=== PATIENT | male | born 1935 | race Caucasian/White ===

== ENCOUNTER → 2017-05-18 | Outpatient (CLI) | payer MEDICARE, BC ==
--- NOTE | 2017-05-18 19:44 | CONS ---
CONSULTATION DATE OF SERVICE: 05/18/2017 81-year-old gentleman has been evaluated in [facility] for obstructive sleep apnea- hypopnea syndrome. HISTORY OF PRESENT ILLNESS/SLEEP WAKE EVALUATION: Patient had been diagnosed with obstructive sleep apnea more than 20 years ago in [facility] and then he underwent UPPP surgery. After surgery, he feels better, breathing improved. Presently, he again developed symptoms of sleep apnea. He sleeps from 10 p.m. to 7 am. He sometimes has problem with falling asleep. He has TV set in bedroom. He sleeps on the side position, prefers not to sleep on the back. He wakes up from sleep 2 times with nocturia. He snores and has symptoms of restless legs. [place] Sleepiness Scale is 9. PAST MEDICAL HISTORY: Positive for hypertension, diabetes mellitus, hyperlipidemia, retina detachment. PAST SURGICAL HISTORY: UPPP, appendectomy, surgery for retinal detachment in 2013. SOCIAL HISTORY: Negative for smoking. Alcohol consumption very rarely. MEDICATIONS: Felodipine, metformin, Klor-Con, Simvastatin, glipizide, troglitazone, losartan, hydrochlorothiazide. FAMILY HISTORY: Hypertension, arthritis, sleep apnea, diabetes, restless legs. PHYSICAL EXAM: GENERAL gentleman without distress. VITAL SIGNS BP 136/76, HR 92, RR 16, height 6 foot 0, weight 259, BMI 35.1. Neck is 17 inches in circumference. Temperature 97.6, oxygen saturation room air 96%. HEENT PERRLA, EOMI, evaluation of oropharynx showed status post UPPP. NECK Supple, no JVD. Thyroid is not palpable. LUNGS Clear to percussion and to auscultation. Good air exchange. No wheezing or rhonchi. HEART S1, S2 regular. No murmurs, gallops, or rubs. ABDOMEN Obese. Soft and nontender. Bowel sounds are present. No organomegaly appreciated. EXTREMITIES 1+ ankle edema. IT PROGRAM AUDITOR Awake, alert, and oriented X3. Cranial nerves 2 to 7 intact. There is no fasciculation or atrophy. noted. No focal deficits observed. IMPRESSION: 1. History of obstructive sleep apnea diagnosed 20 years ago. Presently, patient snores, wakes up from sleep with nocturia, history of uvulopalatopharyngoplasty about 20 years ago, obstructive sleep apnea-hypopnea syndrome. 2. Obesity BMI 35.1. 3. Status post uvulopalatopharyngoplasty. 4. Hypertension. 5. Diabetes mellitus. 6. Hyperlipidemia. 7. Status post appendectomy. 8. History of retinal detachment, status post surgical treatment on the right side. PLAN: 1. Polysomnography for evaluation of patient's breathing during sleep. 2. CPAP/BiPAP titration if sleep study confirms obstructive sleep apnea-hypopnea syndrome. 3. Preferable position during sleep on the side. 4. No driving if patient feels any sleepiness. Patient is aware of civil and criminal liability for unsafe driving. 5. I will see patient for follow up visit to explain results of testing and following plan. Thank you very much for referring this patient for consultation. Sincerely, Tonny Costa MD, PhD, FAASM Diplomat of [place] [employer] [place] [employer] [place] MMODL / EYAD: [id number] /
== END | disposition home or self-care (01) ==
LOC: SLEEP 13:13
PROVIDERS: ATTEND Internal Medicine
DX: G47.33 Obstructive sleep apnea (adult) (pediatric) (principal); I10 Essential (primary) hypertension; E78.5 Hyperlipidemia, unspecified; E66.9 Obesity, unspecified; E11.9 Type 2 diabetes mellitus without complications; Z68.35 Body mass index [BMI] 35.0-35.9, adult; Z98.890 Other specified postprocedural states; Z90.89 Acquired absence of other organs; Z79.899 Other long term (current) drug therapy; Z79.84 Long term (current) use of oral hypoglycemic drugs
CPT/HCPCS: 99211

== ENCOUNTER → 2019-03-01 | Outpatient (CLI) | payer MEDICARE, BC ==
[2019-03-01 19:14] LABS: Anion Gap 10.9 mmol/L (4.00-12.00); Carbon Dioxide 28.1 mmol/L (21.6-31.8); Potassium 4.6 mmol/L (3.5-5.5)
== END | disposition home or self-care (01) ==
LOC: LABWHC1 12:02
PROVIDERS: ATTEND Otolaryngology
DX: Z01.812 Encounter for preprocedural laboratory examination (principal); E11.9 Type 2 diabetes mellitus without complications; I10 Essential (primary) hypertension
CPT/HCPCS: 36415; 80051; 82947

== ENCOUNTER 2019-03-21 09:28 | Emergency (ER) | payer MEDICARE, BC ==
--- NOTE | 2019-03-21 09:46 | ED ---
General Adult HPI - General Chief complaint: Arrhythmia/Palpitations Stated complaint: Cardiac issues Time Seen by Provider: 03/21/19 09:30 Source: patient, EMS Mode of arrival: EMS Limitations: no limitations - History of Present Illness Initial comments: Dictation was produced using Stylistpick dictation software. please excuse any gramma tical, word or spelling errors. Chief Complaint: 83-year-old male with past medical history of diabetes and hypertension presents with dysrhythmia. History of Present Illness: This 83-year-old male who is brought in by EMS. Patient was at the surgery Center in preparation for lesion excision to the face to be done by ear nose and throat doctor. While waiting procedure patient had episode of tachycardia. He had an EKG which computer read as atrial fibrillation with rapid ventricular rate. Patient has any history of A. fib. Patient denies feeling any palpitations during that time. Patient denies any cardiac history. Denies ever seeing a textile conversion manager in the past. Patient denies any significant comorbidities. Feels well at this time. According to EMS patient converted to normal sinus rhythm en route to the emergency department. Patient feels well at the moment. He feels at baseline currently. The ROS documented in this emergency department record has been reviewed and confirmed by me. Those systems with pertinent positive or negative responses have been documented in the HPI. All other systems are other negative and/or noncontributory. PHYSICAL EXAM: General Impression: Alert and oriented x3, not in acute distress HEENT: Normocephalic atraumatic, extra-ocular movements intact, pupils equal and reactive to light bilaterally, mucous membranes moist. Cardiovascular: Heart regular rate and rhythm, S1&S2 audible, no murmurs, rubs or gallops Chest: Lungs clear to auscultation bilaterally, no rhonchi, no wheeze, no rales Abdomen: Bowel sounds present, abdomen soft, non-tender, non-distended, no organomegaly Musculoskeletal: Pulses present and equal in all extremities, no peripheral edema Motor: no focal deficits noted Neurological: CN II-XII grossly intact, no focal motor or sensory deficits noted Skin: Intact with no visualized rashes Psych: Normal affect and mood ED course: 83-year-old male with episode of atrial fibrillation. Signs upon arr ival are within acceptable limits. EKG is performed with no findings of atrial fibrillation. EKG was reviewed from surgery Center showing tachydysrhythmia with wide complex. EKG concerning for atrial fibrillation with aberrancy. Patient's EKG currently shows left bundle branch block with a rate of 81 QRS 168. There is a QTC of 508. Physical examination is benign. Patient feels well at this time. Medications were reviewed. Patient also has prolonged QT. Patient expressed extreme desire of being discharged from the emergency department. at bedside has similar condition and is being treated by Dr. Sales. Patient does not have established care with textile conversion manager. and patient reports that they will be able to follow up with textile conversion manager tomorrow afternoon because his has an appointment with them. They understand the risk of being discharged. They're told that patient could experience life- threatening dysrhythmia which could ultimately lead to . They report that they felt comfortable going home despite patient's abnormal EKG with evidence of prolonged QT. reports that she will bring patient back to the emergency department if experiences any cardiac symptoms including dysrhythmia, chest pain, lethargy weakness or shortness of breath. Discussed patient case with Dr. luis angel johnson who recommends patient be started on request, metoprolol and baby aspirin. EKG interpretation: Ventricular rate he 81, normal sinus rhythm, DC interval 154, QS 160, QTc 508. No old EKG for comparison. - Related Data Home Medications Medication Instructions Recorded Confirmed Felodipine [Felodipine ER] 5 mg PO BID 03/21/19 03/21/19 Losartan/Hydrochlorothiazide 1 tab PO DAILY 03/21/19 03/21/19 [Losartan-Hctz 100-25 mg Tab] Pioglitazone [Actos] 30 mg PO DAILY 03/21/19 03/21/19 Potassium Chloride [Klor-Con 10] 10 meq PO DAILY 03/21/19 03/21/19 Simvastatin [Zocor] 10 mg PO HS 03/21/19 03/21/19 glipiZIDE [Glucotrol] 2.5 mg PO AC-BID 03/21/19 03/21/19 metFORMIN HCL [Glucophage] 500 mg PO BID 03/21/19 03/21/19 Previous Rx's Medication Instructions Recorded Apixaban [Eliquis] 5 mg PO BID #20 tab 03/21/19 Aspirin [Adult Low Dose Aspirin EC] 81 mg PO DAILY 10 Days #10 03/21/19 tablet. Metoprolol Tartrate [Lopressor] 25 mg PO BID #20 tab 03/21/19 Allergies Allergy/AdvReac Type Severity Reaction Status Date / Time No Known Allergies Allergy Verified 03/21/19 09:49 Review of Systems ROS Statement: Those systems with pertinent positive or pertinent negative responses have been documented in the HPI. ROS Other: All systems not noted in ROS Statement are negative. Past Medical History Past Medical History: Diabetes Mellitus, Hypertension History of Any Multi-Drug Resistant Organisms: None Reported Past Surgical History: Appendectomy Additional Past Surgical History / Comment(s): eye & cataract Past Psychological History: No Psychological Hx Reported Smoking Status: Never smoker Past Alcohol Use History: Occasional Past Drug Use History: None Reported General Exam Limitations: no limitations Course Vital Signs 03/21/19 09:32 Temperature 97.9 F Pulse Rate 80 Respiratory 16 Rate Blood Pressure 132/79 O2 Sat by Pulse 97 Oximetry Medical Decision Making - Lab Data Result diagrams: 03/21/19 09:45 03/21/19 09:45 Lab Results 03/21/19 03/21/19 03/21/19 Range/Units 09:45 09:45 09:45 WBC 9.1 (3.8-10.6) k/uL RBC 5.17 (4.30-5.90) m/uL Hgb 15.1 (13.0-17.5) gm/dL Hct 46.4 (39.0-53.0) % MCV 89.8 (80.0-100.0) fL MCH 29.3 (25.0-35.0) pg MCHC 32.6 (31.0-37.0) g/dL RDW 14.7 (11.5-15.5) % Plt Count 227 (150-450) k/uL Neutrophils % 75 % Lymphocytes % 13 % Monocytes % 7 % Eosinophils % 2 % Basophils % 1 % Neutrophils # 6.8 (1.3-7.7) k/uL Lymphocytes # 1.2 (1.0-4.8) k/uL Monocytes # 0.6 (0-1.0) k/uL Eosinophils # 0.2 (0-0.7) k/uL Basophils # 0.1 (0-0.2) k/uL PT 10.2 (9.0-12.0) sec INR 0.9 (<1.2) APTT 25.0 (22.0-30.0) sec Sodium (137-145) mmol/L Potassium (3.5-5.1) mmol/L Chloride (98-107) mmol/L Carbon Dioxide (22-30) mmol/L Anion Gap mmol/L BUN (9-20) mg/dL Creatinine (0.66-1.25) mg/dL Est GFR (CKD-EPI)AfAm (>60 ml/min/1.73 sqM) Est GFR (CKD-EPI)NonAf (>60 ml/min/1.73 sqM) Glucose (74-99) mg/dL Calcium (8.4-10.2) mg/dL Magnesium (1.6-2.3) mg/dL Total Bilirubin (0.2-1.3) mg/dL AST (17-59) U/L ALT (21-72) U/L Alkaline Phosphatase (38-126) U/L Troponin I <0.012 (0.000-0.034) ng/mL Total Protein (6.3-8.2) g/dL Albumin (3.5-5.0) g/dL TSH (0.465-4.680) mIU/L 03/21/19 Range/Units 09:45 WBC (3.8-10.6) k/uL RBC (4.30-5.90) m/uL Hgb (13.0-17.5) gm/dL Hct (39.0-53.0) % MCV (80.0-100.0) fL MCH (25.0-35.0) pg MCHC (31.0-37.0) g/dL RDW (11.5-15.5) % Plt Count (150-450) k/uL Neutrophils % % Lymphocytes % % Monocytes % % Eosinophils % % Basophils % % Neutrophils # (1.3-7.7) k/uL Lymphocytes # (1.0-4.8) k/uL Monocytes # (0-1.0) k/uL Eosinophils # (0-0.7) k/uL Basophils # (0-0.2) k/uL PT (9.0-12.0) sec INR (<1.2) APTT (22.0-30.0) sec Sodium 138 (137-145) mmol/L Potassium 5.0 (3.5-5.1) mmol/L Chloride 105 (98-107) mmol/L Carbon Dioxide 25 (22-30) mmol/L Anion Gap 8 mmol/L BUN 22 H (9-20) mg/dL Creatinine 0.85 (0.66-1.25) mg/dL Est GFR (CKD-EPI)AfAm >90 (>60 ml/min/1.73 sqM) Est GFR (CKD-EPI)NonAf 82 (>60 ml/min/1.73 sqM) Glucose 171 H (74-99) mg/dL Calcium 9.1 (8.4-10.2) mg/dL Magnesium 2.0 (1.6-2.3) mg/dL Total Bilirubin 1.1 (0.2-1.3) mg/dL AST 33 (17-59) U/L ALT 14 L (21-72) U/L Alkaline Phosphatase 39 (38-126) U/L Troponin I (0.000-0.034) ng/mL Total Protein 6.6 (6.3-8.2) g/dL Albumin 3.6 (3.5-5.0) g/dL TSH 1.180 (0.465-4.680) mIU/L Disposition Clinical Impression: Paroxysmal A-fib, Prolonged QT interval Disposition: HOME SELF-CARE Condition: Good Instructions (If sedation given, give patient instructions): Heart Palpitations (ED) Prescriptions: Aspirin [Adult Low Dose Aspirin EC] 81 mg PO DAILY 10 Days #10 tablet. Apixaban [Eliquis] 5 mg PO BID #20 tab Metoprolol Tartrate [Lopressor] 25 mg PO BID #20 tab Is patient prescribed a controlled substance at d/c from ED?: No Referrals: Saud Ibarra MD [Primary Care Provider] - 1-2 days Huang Sandra MD [STAFF PHYSICIAN] - 1-2 days Time of Disposition: 12:00
[2019-03-21 09:59] LABS: Basophils # (A) 0.1 k/uL (0-0.2); Basophils % (A) 1 %; Eosinophils # (A) 0.2 k/uL (0-0.7); Eosinophils % (A) 2 %; HCT 46.4 % (39.0-53.0); HGB 15.1 gm/dL (13.0-17.5); Lymphocytes # (A) 1.2 k/uL (1.0-4.8); Lymphocytes % (A) 13 %; MCH 29.3 pg (25.0-35.0); MCHC 32.6 g/dL (31.0-37.0); MCV 89.8 fL (80.0-100.0); Mean Platelet Volume 7.6; Monocytes # (A) 0.6 k/uL (0-1.0); Monocytes % (A) 7 %; Neutrophils # (A) 6.8 k/uL (1.3-7.7); Neutrophils % (A) 75 %; Platelet Count 227 k/uL (150-450); RBC 5.17 m/uL (4.30-5.90); RDW 14.7 % (11.5-15.5); WBC 9.1 k/uL (3.8-10.6)
[2019-03-21 10:07] LABS: INR 0.9 (<1.2); Prothrombin Time 10.2 sec (9.0-12.0)
--- NOTE | 2019-03-21 10:11 | XR ---
EXAMINATION TYPE: XR chest 2V DATE OF EXAM: 03/21/2019 COMPARISON: NONE HISTORY: Abnormal EKG. Dysrhythmia. Chest pain. TECHNIQUE: Frontal and lateral views of the chest are obtained. FINDINGS: There is no focal air space opacity, pleural effusion, or pneumothorax seen. The cardiac silhouette size is upper limits of normal size. Slight right hemidiaphragm elevation may be physiolo gic. The osseous structures are intact. There is diffuse osseous demineralization. Mild degenerative changes of the thoracic spine are seen. IMPRESSION: No acute cardiopulmonary process.
[2019-03-21 10:57] LABS: ALT 14 U/L (21-72); AST 33 U/L (17-59); African American GFR (CKD) >90 (>60 ml/min/1.73 sqM); Albumin 3.6 g/dL (3.5-5.0); Alkaline Phosphatase 39 U/L (38-126); Anion Gap 8 mmol/L; Blood Urea Nitrogen 22 mg/dL (9-20); Calcium 9.1 mg/dL (8.4-10.2); Carbon Dioxide 25 mmol/L (22-30); Chloride 105 mmol/L (98-107); Glucose 171 mg/dL (74-99); Sodium 138 mmol/L (137-145); Total Bilirubin 1.1 mg/dL (0.2-1.3); Total Protein 6.6 g/dL (6.3-8.2)
[2019-03-21 12:15] LABS: Appearance,Urine Clear (Clear); Bilirubin,Urine Negative (Negative); Blood,Urine Negative (Negative); Color,Urine Yellow; Glucose,Urine (UA) Negative (Negative); Ketones,Urine Negative (Negative); Leukocyte Esterase,Urine Negative (Negative); Nitrite,Urine Negative (Negative); Protein,Urine Trace (Negative); Specific Gravity,Urine 1.021 (1.001-1.035); Urobilinogen,Urine <2.0 mg/dL (<2.0)
[2019-03-21 12:16] VITALS: BP 127/78; PULSE 86; RESP 18; TEMP 98
[2019-03-21 12:29] LABS: Amphetamine Screen,Urine Not Detected (NotDetected); Barbiturate Screen,Urine Not Detected (NotDetected); Benzodiazepines Screen,Urine Not Detected (NotDetected); Cocaine Screen,Urine Not Detected (NotDetected); Methadone Screen, Urine Not Detected (NotDetected); Opiate Screen,Urine Not Detected (NotDetected); Oxycodone Screen, Urine Not Detected (NotDetected); Phencyclidine Screen,Urine Not Detected (NotDetected); Tricyclic Antidepressant,Urine Not Detected (NotDetected); Urn Cannabinoid Scrn Not Detected (NotDetected)
== END 2019-03-21 12:14 | disposition home or self-care (01) ==
LOC: EC 09:28
DX: I48.0 Paroxysmal atrial fibrillation (principal); I45.81 Long QT syndrome; I44.7 Left bundle-branch block, unspecified; E11.9 Type 2 diabetes mellitus without complications; I10 Essential (primary) hypertension; Z79.84 Long term (current) use of oral hypoglycemic drugs; Z79.899 Other long term (current) drug therapy
CPT/HCPCS: 36415; 71046; 80053; 80306; 81003; 83735; 84443; 84484; 85025; 85610; 85730; 93005; 99285

== ENCOUNTER 2019-04-18 03:17 | Inpatient (IN) | payer MEDICARE, BC ==
[2019-04-18] MEDS ORDERED: SODIUM CHLORIDE 0.9% 500 ML 500 ML IV STA (03:26)
[2019-04-18] MEDS ORDERED: ASPIRIN 81 MG PO STA (03:26)
[2019-04-18] MEDS ORDERED: DILTIAZEM DRIP BOLUS FROM BAG 1 MG SOLN IV ONE (03:27)
[2019-04-18] MEDS ORDERED: DILTIAZEM 125 MG in SODIUM CHLORIDE 0.9% 100 ML IV SCH (03:30)
[2019-04-18] MEDS: METOPROLOL TARTRATE 5 MG/5 ML VIAL IVP SCH ×7 (03:33→11:13)
--- NOTE | 2019-04-18 03:33 | ED ---
Arrhythmia/Palpitations HPI - General Chief Complaint: Arrhythmia/Palpitations Stated Complaint: A Fib Time Seen by Provider: 04/18/19 03:26 Source: EMS Mode of arrival: EMS Limitations: no limitations - History of Present Illness Initial Comments: Thiago is a pleasant 83-year-old gentleman who was diagnosed with atrial fibrillation last week, patient presents to the emergency department today via EMS for evaluation of palpitations. Patient reports he's been compliant with his home medications including his antiarrhythmics, he was in his usual state of health upon going to bed yesterday. Patient reports he woke from sleep suddenly around 120 or 1:30 in the morning with pounding in his chest. Patient reports he felt like his heart was racing he became short of breath and was sweaty at which time he called EMS. EMS arrived on scene to find the patient with a heart rate ranging from the 90s to 190s, EKG confirmed atrial fibrillation with RVR. Patient was transferred to the ER for further evaluation. Patient denies associated fevers chills nausea or vomiting. He's been eating and drinking well and has been compliant with his medications he is scheduled to see his wild life manager Dr. Boaz easley this morning. - Related Data Home Medications Medication Instructions Recorded Confirmed Felodipine [Felodipine ER] 5 mg PO BID 03/21/19 03/21/19 Losartan/Hydrochlorothiazide 1 tab PO DAILY 03/21/19 03/21/19 [Losartan-Hctz 100-25 mg Tab] Pioglitazone [Actos] 30 mg PO DAILY 03/21/19 03/21/19 Potassium Chloride [Klor-Con 10] 10 meq PO DAILY 03/21/19 03/21/19 Simvastatin [Zocor] 10 mg PO HS 03/21/19 03/21/19 glipiZIDE [Glucotrol] 2.5 mg PO AC-BID 03/21/19 03/21/19 metFORMIN HCL [Glucophage] 500 mg PO BID 03/21/19 03/21/19 Previous Rx's Medication Instructions Recorded Apixaban [Eliquis] 5 mg PO BID #20 tab 03/21/19 Aspirin [Adult Low Dose Aspirin EC] 81 mg PO DAILY 10 Days #10 03/21/19 tablet. Metoprolol Tartrate [Lopressor] 25 mg PO BID #20 tab 03/21/19 Allergies Allergy/AdvReac Type Severity Reaction Status Date / Time No Known Allergies Allergy Verified 03/21/19 09:49 Review of Systems ROS Statement: Those systems with pertinent positive or pertinent negative responses have been documented in the HPI. ROS Other: All systems not noted in ROS Statement are negative. Past Medical History Past Medical History: Atrial Fibrillation, Diabetes Mellitus, Hypertension History of Any Multi-Drug Resistant Organisms: None Reported Past Surgical History: Appendectomy Additional Past Surgical History / Comment(s): eye & cataract Past Psychological History: No Psychological Hx Reported Smoking Status: Never smoker Past Alcohol Use History: Occasional Past Drug Use History: None Reported General Exam - General Exam Comments Initial Comments: Physical Exam GENERAL: Patient is well-developed and well-nourished. Patient in moderate distress, diaphoretic HENT: Normocephalic, Atraumatic. EYES: PERRL, EOMI PULMONARY: Unlabored respirations. No audible rales rhonchi or wheezing was noted. CARDIOVASCULAR: Tachycardic, warm and well perfused extremities ABDOMEN: Soft and nontender with normal bowel sounds. SKIN: Skin is clear with no lesions or rashes and otherwise unremarkable. : Deferred NEUROLOGIC: Patient is alert and oriented x3. Moving all extremities spontaneously MUSCULOSKELETAL: Normal extremities with adequate strength and full range of motion. No lower extremity swelling or edema. No calf tenderness. PSYCHIATRIC: Appropriate situational anxiety Limitations: no limitations Course Vital Signs 04/18/19 04/18/19 03:19 04:11 Pulse Rate 140 H Respiratory 18 18 Rate Blood Pressure 106/79 O2 Sat by Pulse 93 L 98 Oximetry EKG Findings - EKG Comments: EKG Findings:: EKG was attained due to complaint of palpitations, EKG obtained at 3:25 AM, rate is 170 rhythm is a narrow complex irregularly irregular rhythm consistent with atrial fibrillation with RVR, there is a left bundle branch block, QRS is 136 QTc is 444. Medical Decision Making - Medical Decision Making SHEENT was seen and evaluated immediately upon arrival to the emergency department, patient with a history of A. fib presenting with A. fib RVR with symptomatic palpitations Labs and imaging ordered Cardizem infusion with bolus was ordered however given that this will take time to come from the pharmacy Lopressor was ordered for rate control EKG consistent with A. fib with RVR with a left bundle branch block Labs resulted CBC and CMP are within normal limits, there is mild elevation of the troponin this is likely secondary to supply demand mismatch due to profound tachycardia. Patient's heart rate improving on Cardizem, we'll in the 1 teens. At this time patient stable for admission to the floor. Patient care was discussed with Dr. Luna who agrees with plan for admission with consult to cardiology Dr. Sandra. - Lab Data Result diagrams: 04/18/19 03:34 04/18/19 03:34 Lab Results 04/18/19 04/18/19 04/18/19 Range/Units 03:34 03:34 03:34 WBC 12.7 H (3.8-10.6) k/uL RBC 5.32 (4.30-5.90) m/uL Hgb 15.6 (13.0-17.5) gm/dL Hct 46.6 (39.0-53.0) % MCV 87.7 (80.0-100.0) fL MCH 29.3 (25.0-35.0) pg MCHC 33.5 (31.0-37.0) g/dL RDW 14.2 (11.5-15.5) % Plt Count 236 (150-450) k/uL Neutrophils % 82 % Lymphocytes % 10 % Monocytes % 4 % Eosinophils % 2 % Basophils % 1 % Neutrophils # 10.4 H (1.3-7.7) k/uL Lymphocytes # 1.3 (1.0-4.8) k/uL Monocytes # 0.6 (0-1.0) k/uL Eosinophils # 0.3 (0-0.7) k/uL Basophils # 0.1 (0-0.2) k/uL PT 10.2 (9.0-12.0) sec INR 0.9 (<1.2) APTT 25.9 (22.0-30.0) sec Sodium 140 (137-145) mmol/L Potassium 4.3 (3.5-5.1) mmol/L Chloride 109 H (98-107) mmol/L Carbon Dioxide 19 L (22-30) mmol/L Anion Gap 12 mmol/L BUN 25 H (9-20) mg/dL Creatinine 0.75 (0.66-1.25) mg/dL Est GFR (CKD-EPI)AfAm >90 (>60 ml/min/1.73 sqM) Est GFR (CKD-EPI)NonAf 86 (>60 ml/min/1.73 sqM) Glucose 164 H (74-99) mg/dL Calcium 9.5 (8.4-10.2) mg/dL Magnesium 1.8 (1.6-2.3) mg/dL Total Bilirubin 0.9 (0.2-1.3) mg/dL AST 21 (17-59) U/L ALT 20 L (21-72) U/L Alkaline Phosphatase 70 (38-126) U/L Troponin I (0.000-0.034) ng/mL Total Protein 6.9 (6.3-8.2) g/dL Albumin 4.0 (3.5-5.0) g/dL 04/18/19 Range/Units 03:34 WBC (3.8-10.6) k/uL RBC (4.30-5.90) m/uL Hgb (13.0-17.5) gm/dL Hct (39.0-53.0) % MCV (80.0-100.0) fL MCH (25.0-35.0) pg MCHC (31.0-37.0) g/dL RDW (11.5-15.5) % Plt Count (150-450) k/uL Neutrophils % % Lymphocytes % % Monocytes % % Eosinophils % % Basophils % % Neutrophils # (1.3-7.7) k/uL Lymphocytes # (1.0-4.8) k/uL Monocytes # (0-1.0) k/uL Eosinophils # (0-0.7) k/uL Basophils # (0-0.2) k/uL PT (9.0-12.0) sec INR (<1.2) APTT (22.0-30.0) sec Sodium (137-145) mmol/L Potassium (3.5-5.1) mmol/L Chloride (98-107) mmol/L Carbon Dioxide (22-30) mmol/L Anion Gap mmol/L BUN (9-20) mg/dL Creatinine (0.66-1.25) mg/dL Est GFR (CKD-EPI)AfAm (>60 ml/min/1.73 sqM) Est GFR (CKD-EPI)NonAf (>60 ml/min/1.73 sqM) Glucose (74-99) mg/dL Calcium (8.4-10.2) mg/dL Magnesium (1.6-2.3) mg/dL Total Bilirubin (0.2-1.3) mg/dL AST (17-59) U/L ALT (21-72) U/L Alkaline Phosphatase (38-126) U/L Troponin I 0.048 H* (0.000-0.034) ng/mL Total Protein (6.3-8.2) g/dL Albumin (3.5-5.0) g/dL Disposition Clinical Impression: Atrial fibrillation, Elevated troponin Disposition: ADMITTED IP TO THIS HOSP Condition: Serious
[2019-04-18 03:49] LABS: Basophils # (A) 0.1 k/uL (0-0.2); Basophils % (A) 1 %; Eosinophils # (A) 0.3 k/uL (0-0.7); Eosinophils % (A) 2 %; HCT 46.6 % (39.0-53.0); HGB 15.6 gm/dL (13.0-17.5); Lymphocytes # (A) 1.3 k/uL (1.0-4.8); Lymphocytes % (A) 10 %; MCH 29.3 pg (25.0-35.0); MCHC 33.5 g/dL (31.0-37.0); MCV 87.7 fL (80.0-100.0); Mean Platelet Volume 7.4; Monocytes # (A) 0.6 k/uL (0-1.0); Monocytes % (A) 4 %; Neutrophils # (A) 10.4 k/uL (1.3-7.7); Neutrophils % (A) 82 %; Platelet Count 236 k/uL (150-450); RBC 5.32 m/uL (4.30-5.90); RDW 14.2 % (11.5-15.5); WBC 12.7 k/uL (3.8-10.6)
--- NOTE | 2019-04-18 03:54 | XR ---
EXAMINATION TYPE: XR chest 1V portable DATE OF EXAM: 04/18/2019 COMPARISON: 03/21/2019 HISTORY: Chest pain TECHNIQUE: Single frontal view of the chest is obtained. FINDINGS: Heart is enlarged. There is pulmonary vascular congestion. There are chest leads. Costophr enic angles are clear. IMPRESSION: There is mild congestive heart failure. This appears new compared to old exam.
[2019-04-18 03:58] LABS: INR 0.9 (<1.2); Partial Thromboplastin Time 25.9 sec (22.0-30.0); Prothrombin Time 10.2 sec (9.0-12.0)
[2019-04-18] MEDS ORDERED: NALOXONE 0.4 MG/ML 1 ML VIAL IV PRN (04:09)
[2019-04-18 04:17] LABS: ALT 20 U/L (21-72); AST 21 U/L (17-59); African American GFR (CKD) >90 (>60 ml/min/1.73 sqM); Alkaline Phosphatase 70 U/L (38-126); Anion Gap 12 mmol/L; Blood Urea Nitrogen 25 mg/dL (9-20); Calcium 9.5 mg/dL (8.4-10.2); Carbon Dioxide 19 mmol/L (22-30); Chloride 109 mmol/L (98-107); Glucose 164 mg/dL (74-99); Magnesium 1.8 mg/dL (1.6-2.3); Potassium 4.3 mmol/L (3.5-5.1); Sodium 140 mmol/L (137-145); Total Bilirubin 0.9 mg/dL (0.2-1.3); Total Protein 6.9 g/dL (6.3-8.2)
[2019-04-18 05:32] LABS: Glucose,Whole Blood 145 mg/dL (75-99)
--- NOTE | 2019-04-18 07:07 | P.HPIM ---
History of Present Illness H&P Date: 04/18/19 Chief Complaint: Palpitations shortness of breath 83-year-old male with history of diabetes recently diagnosed A. fib Patient comes in by EMS after waking up at 1:30 in the morning feeling short of breath with palpitations and heart racing profusely sweating denies any chest pain denies any nausea vomiting denies any fevers chills reports some mild cough over the past week denies any abdominal pain denies any GI bleeding. Patient was recently diagnosed with A. fib 3 weeks ago he reports she's been compliant with his medications he was planning on seeing Dr. Sales today from cardiology. In the ER was found to be in A. fib with RVR started on Cardizem and admitted for further care and management Review of Systems Pertinent positives as noted in HPI. All other systems were reviewed and are negative Past Medical History Past Medical History: Atrial Fibrillation, Diabetes Mellitus, Hypertension History of Any Multi-Drug Resistant Organisms: None Reported Past Surgical History: Appendectomy Additional Past Surgical History / Comment(s): eye & cataract Past Anesthesia/Blood Transfusion Reactions: No Reported Reaction Past Psychological History: No Psychological Hx Reported Smoking Status: Never smoker Past Alcohol Use History: Occasional Past Drug Use History: None Reported - Past Family History Family Family Medical History: No Reported History Medications and Allergies Home Medications Medication Instructions Recorded Confirmed Type Apixaban [Eliquis] 5 mg PO BID #20 tab 03/21/19 04/18/19 Rx Aspirin [Adult Low Dose Aspirin EC] 81 mg PO DAILY 10 Days #10 03/21/19 04/18/19 Rx tablet. Felodipine [Felodipine ER] 5 mg PO BID 03/21/19 04/18/19 History Losartan/Hydrochlorothiazide 1 tab PO DAILY 03/21/19 04/18/19 History [Losartan-Hctz 100-25 mg Tab] Metoprolol Tartrate [Lopressor] 25 mg PO BID #20 tab 03/21/19 04/18/19 Rx Pioglitazone [Actos] 30 mg PO DAILY 03/21/19 04/18/19 History Potassium Chloride [Klor-Con 10] 10 meq PO DAILY 03/21/19 04/18/19 History Simvastatin [Zocor] 10 mg PO HS 03/21/19 04/18/19 History glipiZIDE [Glucotrol] 2.5 mg PO AC-BID 03/21/19 04/18/19 History metFORMIN HCL [Glucophage] 500 mg PO BID 03/21/19 04/18/19 History Allergies Allergy/AdvReac Type Severity Reaction Status Date / Time No Known Allergies Allergy Verified 03/21/19 09:49 Physical Exam Vitals: Vital Signs Temp Pulse Pulse Resp BP BP Pulse Ox 04/18/19 04:30 98.2 F 129 H 16 120/59 94 L 04/18/19 04:11 140 H 18 106/79 98 04/18/19 03:19 18 93 L Intake and Output 04/17/19 04/17/19 04/18/19 14:59 22:59 06:59 Other: Weight 113.398 kg Constitutional: No acute distress, conversant, pleasant Eyes: Anicteric sclerae, moist conjunctiva, no lid-lag Pupils equal round reactive to light ENMT: NC/AT Oropharynx clear, no erythema, exudates Neck: Supple, FROM, no masses, or JVD No carotid bruits No thyromegaly Lungs: Clear to auscultation Clear to percussion Normal respiratory effort, no accessory muscle use Cardiovascular: Heart irregular tachycardia No murmurs, gallops, or rubs No peripheral edema Abdominal: Soft Nontender, no guarding, rebound or rigidity Abdomen moving with respiration Normoactive bowel sounds No hepatomegaly, No splenomegaly No palpable mass No abdominal wall hernia noted Skin: Normal temperature, tone, texture, turgor No induration No subcutaneous nodules No rash, lesions No ulcers Extremities: No digital cyanosis No clubbing Pedal pulses intact and symmetrical Radial pulses intact and symmetrical No calf tenderness Psychiatric: Alert and oriented to person, place and time Appropriate affect fair judgement Neuro Muscles Strength 5/5 in all 4 extremities Sensation to light touch grossly present throughout Cranial nerves II-XII grossly intact No focal sensory deficits Lymphatics: no palpable cervical or supraclavicular , or inguinal lymph nodes Results CBC & Chem 7: 04/18/19 03:34 04/18/19 03:34 Labs: Abnormal Lab Results - Last 24 Hours (Table) 04/18/19 04/18/19 04/18/19 Range/Units 03:34 03:34 03:34 WBC 12.7 H (3.8-10.6) k/uL Neutrophils # 10.4 H (1.3-7.7) k/uL Chloride 109 H (98-107) mmol/L Carbon Dioxide 19 L (22-30) mmol/L BUN 25 H (9-20) mg/dL Glucose 164 H (74-99) mg/dL POC Glucose (mg/dL) (75-99) mg/dL ALT 20 L (21-72) U/L Troponin I 0.048 H* (0.000-0.034) ng/mL 04/18/19 Range/Units 05:31 WBC (3.8-10.6) k/uL Neutrophils # (1.3-7.7) k/uL Chloride (98-107) mmol/L Carbon Dioxide (22-30) mmol/L BUN (9-20) mg/dL Glucose (74-99) mg/dL POC Glucose (mg/dL) 145 H (75-99) mg/dL ALT (21-72) U/L Troponin I (0.000-0.034) ng/mL Thrombosis Risk Factor Assmnt - Choose All That Apply Each Risk Factor Represents 3 Points: Age 75 years or older Thrombosis Risk Factor Assessment Total Risk Factor Score: 3 Thrombosis Risk Factor Assessment Level: Moderate Risk Assessment and Plan Assessment: 83-year-old male recently diagnosed with A. fib admitted under observation with anticipated length of stay less than 2 midnights for A. fib with RVR symptomatic. Patient labs show slightly elevated troponin chest x-ray showed mild congestion Plan: A. fib with RVR on Eliquis Slightly elevated troponin demand ischemia Continue Eliquis Continue Cardizem drip Continue home meds. Lopressor Cardiology consult histologist technologist mild cough , bronchitis symptomatic control Chronic conditions Diabetes mellitus on oral hypoglycemics switch to insulin sliding scale while in the hospital Hypertension currently on the lower side due to Cardizem drip. Continue home meds with hold parameters Preformed a thorough record review from recent hospitalization recent hospitalization 3 weeks ago where he was diagnosed with A. fib with RVR Surrogate decision-maker: Patient with CODE STATUS: Full Code DVT prophylaxis: On Eliquis for A. fib Discussed with: Patient, ER, RN Anticipated length of stay less than [address]: Home A total of 60 minutes was spent on the care of this complex patient more than 50% of the time was spent in counseling and care coordination.
[2019-04-18] MEDS: INSULIN ASPART (NovoLOG) 100 UNIT/ML VIAL SQ SCH ×4 (08:01→20:53)
[2019-04-18] MEDS ORDERED: amLODIPine 5 MG TAB PO SCH (09:00)
[2019-04-18] MEDS ORDERED: LOSARTAN-HCTZ 50-12.5 MG 1 EACH TAB PO SCH (09:00)
[2019-04-18] MEDS: ASPIRIN 81 MG PO SCH (09:22)
[2019-04-18] MEDS: APIXABAN 5 MG TAB PO SCH ×2 (09:22→20:52)
[2019-04-18] MEDS: METOPROLOL TARTRATE 25 MG TAB PO SCH ×2 (09:22→20:52)
[2019-04-18] MEDS ORDERED: DIGOXIN 250 MCG/ML 2 ML AMP IVP ONE (10:00)
[2019-04-18] MEDS: AMIODARONE 200 MG TAB PO SCH ×2 (10:24→20:52)
--- NOTE | 2019-04-18 10:51 | ECHOF ---
Referral Reason:afib, pulmonary congestion MEASUREMENTS -------- HEIGHT: 182.9 cm WEIGHT: 113.4 kg BP: 120/59 RVIDd: 2.8 cm (< 3.3) IVSd: 1.5 cm (0.6 - 1.1) LVIDd: 6.0 cm (3.9 - 5.3) LVPWd: 1.5 cm (0.6 - 1.1) IVSs: 2.0 cm LVIDs: 5.8 cm LVPWs: 1.5 cm LA Diam: 3.9 cm (2.7 - 3.8) LAESV Index (A-L): 31.04 ml/m Ao Diam: 3.8 cm (2.0 - 3.7) AV Cusp: 2.0 cm (1.5 - 2.6) MV EXCURSION: 9.761 mm (> 18.000) MV EF SLOPE: 103 mm/s (70 - 150) EPSS: 0.8 cm RAP: 5.00 mmHg RVSP: 55.71 mmHg FINDINGS -------- Atrial fibrillation. This was a technically difficult study with suboptimal views. The left ventricle is mildly dilated. There is moderate concentric left ventricular hypertrophy. Overall left ventricular systolic function is severely impaired with, an EF < 20%. The right ventricle is normal in size. LA is midly dilated 29-33ml/m2. The right atrium is normal in size. 5 ml of Lumason was utilized for enhancement of images. Interatrial and interventricular septum intact. The aortic valve is trileaflet and appears structurally normal. Mild mitral regurgitation is present. Mild tricuspid regurgitation present. There is severe pulmonary hypertension. The right ventricul ar systolic pressure, as measured by Doppler, is 55.71mmHg. Trace/mild (physiologic) pulmonic regurgitation. The aortic root is dilated measuring 3.8cm. The inferior vena cava is dilated with poor inspiratory collapse which is consistent with estimated r ight atrial pressure of 15 mmHg. There is no pericardial effusion. CONCLUSIONS -------- 1. Atrial fibrillation. 2. This was a technically difficult study with suboptimal views. 3. The left ventricle is mildly dilated. 4. There is moderate concentric left ventricular hypertrophy. 5. Overall left ventricular systolic function is severely impaired with, an EF < 20%. 6. The right ventricle is normal in size. 7. LA is midly dilated 29-33ml/m2. 8. The right atrium is normal in size. 9. 5 ml of Lumason was utilized for enhancement of images. 10. Interatrial and interventricular septum intact. 11. The aortic valve is trileaflet and appears structurally normal. 12. Mild mitral regurgitation is present. 13. Mild tricuspid regurgitation present. 14. There is severe pulmonary hypertension. 15. The right ventricular systolic pressure, as measured by Doppler, is 55.71mmHg. 16. Trace/mild (physiologic) pulmonic regurgitation. 17. The aortic root is dilated measuring 3.8cm. 18. The inferior vena cava is dilated with poor inspiratory collapse which is consistent with estimat ed right atrial pressure of 15 mmHg. 19. There is no pericardial effusion. BUILDING MECHANIC: Dalia Flynn RDCS
[2019-04-18 11:53] LABS: Glucose,Whole Blood 148 mg/dL (75-99)
[2019-04-18] MEDS ORDERED: DIGOXIN 250 MCG TAB PO SCH (12:00)
--- NOTE | 2019-04-18 13:17 | P.PN ---
Subjective Progress Note Date: 04/18/19 Principal diagnosis: A. fib with RVR, new onset CHF Patient was seen. No acute events overnight. Heart rate currently in the 70s. Patient reports improvement in his breathing and no palpitations since being in the ICU. He denies any chest pain. Patient reports progressively worsening exertional dyspnea over the years. He denies any lower extremity edema. No orthopnea. Echocardiogram showing EF less than 20%. Patient is in no acute distress. Atrial fibrillation with RVR Troponin elevation likely due to demand ischemia New-onset systolic CHF, euvolemic Elevated BUN Leukocytosis Cardizem drip to has been discontinued and patient has been started on amiodarone 400 mg by mouth twice a day. Patient has also been started on digoxin per cardiology recommendations. Echocardiogram shows new onset systolic CHF. He is already on metoprolol. ANTHONY inhibitor has been admitted to his medication regimen. Patient will continue to be on telemetry monitoring. Will follow cardiology recommendations. Likely DC in 1-2 days. Objective - Vital Signs Vital signs: Vital Signs Temp 98.2 F 04/18/19 08:00 Pulse 135 H 04/18/19 10:30 Resp 22 04/18/19 10:30 BP 114/86 04/18/19 10:30 Pulse Ox 94 L 04/18/19 10:30 Intake & Output 04/17/19 04/18/19 04/18/19 18:59 06:59 18:59 Intake Total 15.000 113 Balance 15.000 113 Weight 113.398 kg Intake: IV 80 Normal Saline Carrier 80 Intake, IV Titration 15.000 33 Amount Diltiazem 125 mg In 15.000 33 Sodium Chloride 0.9% 100 ml @ Per Protocol IV .Q0M [facility] Rx#:[id number] Other: # Voids 1 - Labs CBC & Chem 7: 04/18/19 03:34 04/18/19 03:34 Labs: Abnormal Lab Results - Last 24 Hours (Table) 04/18/19 04/18/19 04/18/19 Range/Units 03:34 03:34 03:34 WBC 12.7 H (3.8-10.6) k/uL Neutrophils # 10.4 H (1.3-7.7) k/uL Chloride 109 H (98-107) mmol/L Carbon Dioxide 19 L (22-30) mmol/L BUN 25 H (9-20) mg/dL Glucose 164 H (74-99) mg/dL POC Glucose (mg/dL) (75-99) mg/dL ALT 20 L (21-72) U/L Troponin I 0.048 H* (0.000-0.034) ng/mL 04/18/19 04/18/19 04/18/19 Range/Units 05:31 09:07 11:50 WBC (3.8-10.6) k/uL Neutrophils # (1.3-7.7) k/uL Chloride (98-107) mmol/L Carbon Dioxide (22-30) mmol/L BUN (9-20) mg/dL Glucose (74-99) mg/dL POC Glucose (mg/dL) 145 H 148 H (75-99) mg/dL ALT (21-72) U/L Troponin I 0.092 H* (0.000-0.034) ng/mL
--- NOTE | 2019-04-18 16:28 | CONS ---
YESSI Das is an 83-year-old gentleman who is admitted to hospital with atrial fibrillation with rapid ventricular rate. He has known diabetes, hypertension and dyslipidemia and developed new-onset atrial fibrillation 3 weeks ago. He was in the emergency room, converted to sinus rhythm and was discharged home. It is unclear if he has since been evaluated by a secondary school teacher librarian or not; certainly did not have any cardiac workup. He comes in yesterday with shortness of breath and palpitations. He was found to be in atrial fibrillation with rapid ventricular rate and is admitted to the intensive care unit as an overflow. His heart rates were in the 140s. He is currently on intravenous Cardizem with still poorly controlled ventricular rate. His echocardiogram showed significant LV systolic dysfunction. Patient denies any chest pain or difficulty in breathing. There is no history of leg edema, PND or orthopnea. I am going to gradually taper and stop the Cardizem, continue the beta blockers, start him on amiodarone and digoxin. Patient is already on Eliquis but missed a few days' worth of Eliquis prior to coming in. Patient needs to have rate control with continued anticoagulation, and if he does not convert to sinus rhythm on Cordarone, he may need a GARCÍA cardioversion. He will also need evaluation for ischemic heart disease, given the unexplained cardiomyopathy. PAST MEDICAL HISTORY: Past medical history is significant for: 1. Insulin-requiring diabetes. 2. Hypertension. 3. Dyslipidemia. MEDICATIONS: Medications at home included: 1. Metformin 500 b.i.d. 2. Glucotrol 2.5 b.i.d. 3. Levitra. 4. Zocor 10 daily. 5. Maxalt. 6. K-Dur. 7. Actos. 8. Losartan. 9. Xalatan. 10.Neurontin. 11.Felodipine. 12.Aspirin. ALLERGIES: There are NO KNOWN DRUG ALLERGIES. FAMILY HISTORY: Negative for premature coronary artery disease. SOCIAL HISTORY: Negative for smoking, EtOH abuse or drug abuse. REVIEW OF SYSTEMS: HEENT is unremarkable. CARDIAC: As described above. RESPIRATORY: As described above. GI: Negative. GENITOURINARY: Negative. ALLERGY: Negative. IMMUNOLOGY: Negative. SKIN: Negative. MUSCULOSKELETAL: Significant for arthritis. PSYCHOSOCIAL: Negative. ENDOCRINE: Negative. DERMATOLOGY: Negative. CONSTITUTIONAL: Negative. ONCOLOGICAL: Negative. Rest of the system review is not relevant. PHYSICAL EXAMINATION: Patient is comfortable at rest. Heart rate is 120s to 130 beats per minute. Blood pressure is 114/86, respiratory rate is 18. Chest exam reveals good air entry bilaterally. Heart exam reveals first and second heart sounds, irregular rhythm. No murmur. Abdomen is soft. Examination of extremities revealed trace edema. Peripheral pulses are felt. LABS: Labs show that the hemoglobin is 15.6, platelet count is 236, potassium is 4.3. Creatinine is 0.75. Troponin is elevated at 0.048 and 0.092. ASSESSMENT: 1. Persistent atrial fibrillation with rapid ventricular rate. 2. Bwn-WH-ptsdxrw-elevation myocardial infarction, probably related to tachycardia with supply/demand mismatch. 3. Cardiomyopathy. PLAN: I will treat the patient with anticoagulants, rate control measures, statins, ANTHONY inhibitors and beta blockers. We will optimize therapies based on blood pressure, heart rate and clinical response. Patient may need a GARCÍA cardioversion down the road. DANIEL / MOIZN: [id number] /
[2019-04-18] MEDS: BENZONATATE 100 MG CAP PO PRN ×2 (16:50→20:52)
[2019-04-18 16:53] LABS: Glucose,Whole Blood 114 mg/dL (75-99)
[2019-04-18 20:22] LABS: Glucose,Whole Blood 142 mg/dL (75-99)
[2019-04-18] MEDS: ATORVASTATIN 10 MG TAB PO SCH (20:52)
[2019-04-18] MEDS: LISINOPRIL 5 MG TAB PO SCH (20:52)
[2019-04-18] MEDS: GABAPENTIN 300 MG CAP PO SCH (20:53)
[2019-04-18] MEDS: LATANOPROST 0.005% OPHTH DROPS 2.5 ML BTL BOTH EYES SCH (20:54)
[2019-04-19 05:44] LABS: Basophils % (A) 0 %; Eosinophils # (A) 0.1 k/uL (0-0.7); Eosinophils % (A) 1 %; HCT 45.2 % (39.0-53.0); HGB 14.7 gm/dL (13.0-17.5); Lymphocytes # (A) 0.8 k/uL (1.0-4.8); Lymphocytes % (A) 8 %; MCH 28.8 pg (25.0-35.0); MCHC 32.6 g/dL (31.0-37.0); MCV 88.3 fL (80.0-100.0); Mean Platelet Volume 8.2; Monocytes # (A) 0.5 k/uL (0-1.0); Monocytes % (A) 5 %; Neutrophils # (A) 8.5 k/uL (1.3-7.7); Neutrophils % (A) 84 %; Platelet Count 220 k/uL (150-450); RBC 5.11 m/uL (4.30-5.90); RDW 14.4 % (11.5-15.5)
[2019-04-19 05:59] LABS: African American GFR (CKD) >90 (>60 ml/min/1.73 sqM); Anion Gap 8 mmol/L; Blood Urea Nitrogen 26 mg/dL (9-20); Calcium 9.1 mg/dL (8.4-10.2); Carbon Dioxide 24 mmol/L (22-30); Chloride 106 mmol/L (98-107); Glucose 166 mg/dL (74-99); Sodium 138 mmol/L (137-145)
[2019-04-19] MEDS ORDERED: DILTIAZEM DRIP BOLUS FROM BAG 1 MG SOLN IV ONE (06:18)
[2019-04-19] MEDS: DILTIAZEM 125 MG in SODIUM CHLORIDE 0.9% 100 ML IV SCH ×2 (06:29→17:21)
[2019-04-19 06:38] LABS: Glucose,Whole Blood 183 mg/dL (75-99)
[2019-04-19] MEDS: INSULIN ASPART (NovoLOG) 100 UNIT/ML VIAL SQ SCH ×4 (06:38→20:40)
[2019-04-19] MEDS: AMIODARONE 200 MG TAB PO SCH ×2 (08:06→20:33)
[2019-04-19] MEDS: ASPIRIN 81 MG PO SCH (08:06)
[2019-04-19] MEDS: APIXABAN 5 MG TAB PO SCH ×2 (08:06→20:45)
[2019-04-19] MEDS: GABAPENTIN 300 MG CAP PO SCH ×2 (08:07→20:33)
[2019-04-19] MEDS: METOPROLOL TARTRATE 25 MG TAB PO SCH ×2 (08:07→20:34)
[2019-04-19] MEDS ORDERED: DIGOXIN 250 MCG TAB PO SCH (09:00)
--- NOTE | 2019-04-19 10:17 | PN ---
PROGRESS NOTE Thiago is an 83-year-old gentleman who was admitted to hospital with new onset atrial fibrillation with rapid ventricular rate. He converted to sinus rhythm, was again in atrial fibrillation with RVR this morning and converted back to sinus rhythm. At the time of my evaluation, he appears comfortable at rest and is free of symptoms. An echocardiogram showed severe LV systolic dysfunction with an ejection fraction of 20%. There is mild mitral and tricuspid regurgitation noted with moderate to severe pulmonary hypertension. The patient was started yesterday on amiodarone and he remains in sinus rhythm this morning. The patient is on Eliquis 5 b.i.d., aspirin, Lipitor, Lanoxin, insulin, Zestril, and metoprolol. PHYSICAL EXAM: Comfortable at rest. Vital signs are stable. There is no jugular venous distention. Chest exam reveals good air entry bilaterally. Heart exam reveals first and second heart sounds. No gallop. No murmur. Abdomen is soft. Exam of extremities did not reveal any edema. Peripheral pulses are felt. RADIAL ROUTER OPERATOR exam did not reveal focal neurological deficits. LABS: Show a hemoglobin of 14.7, platelet count is 220. Potassium is 4, creatinine is 0.68. ASSESSMENT: 1. Persistent atrial fibrillation. 2. Cardiomyopathy with severe left ventricular dysfunction. PLAN: Patient will be continued on his current medications and if he remains in sinus rhythm, he can be discharged home tomorrow and he needs cardiac catheterization to evaluate for coronary artery disease, and I will schedule this as outpatient next week. If the patient is still here, I will consider doing the catheterization on Monday. Please hold the will hold the Eliquis on Monday evening and Monday. MMODL / IJN: [id number] /
[2019-04-19 11:31] LABS: Glucose,Whole Blood 147 mg/dL (75-99)
[2019-04-19] MEDS ORDERED: FUROSEMIDE 10 MG/ML 4 ML VIAL IV STA (12:50)
--- NOTE | 2019-04-19 12:57 | P.PN ---
Subjective Progress Note Date: 04/19/19 Principal diagnosis: A. fib with RVR, new onset CHF Patient was seen and examined. No acute events overnight. Patient reports no further palpitations since admission. He does continue to complain of some mild shortness of breath especially with exertion and laying flat. He complains of some mild lower extremity edema. He denies any chest pain. No nausea or vomiting. No fever or chills. Objective - Vital Signs Vital signs: Vital Signs Temp 97.8 F 04/19/19 08:00 Pulse 79 04/19/19 08:00 Resp 15 04/19/19 08:00 BP 122/59 04/19/19 08:00 Pulse Ox 94 L 04/19/19 08:00 Intake & Output 04/18/19 04/19/19 04/19/19 18:59 06:59 18:59 Intake Total 533 230 484.5 Output Total 50 250 Balance 483 -20 484.5 Intake: IV 100 30 Normal Saline Carrier 100 30 Intake, IV Titration 33 8.5 Amount Diltiazem 125 mg In 8.5 Sodium Chloride 0.9% 100 ml @ 10 MG/HR 10 mls/hr IV .[id number] [facility] Rx#: [id number] Diltiazem 125 mg In 33 Sodium Chloride 0.9% 100 ml @ Per Protocol IV .Q0M [facility] Rx#:[id number] Oral 476 Tube Feeding 400 Blood Product 200 Output: Urine 50 250 Other: # Voids 1 0 # Bowel Movements 1 - Exam General: [non toxic], [no distress], [appears at stated age] Derm: [warm], [dry] Head: [atraumatic], [normocephalic], [symmetric] Eyes: [EOMI], [no lid lag], [anicteric sclera] Mouth: [no lip lesion], [mucus membranes moist] Cardiovascular: [S1S2 reg], [no murmur], [positive DP pulse bilateral], Lungs: [Decreased breath sounds bilateral], [no rhonchi, no rales] , [no accessory muscle use] Abdominal: [soft], [ nontender to palpation], [no guarding], [no appreciable organomegaly] Ext: [no gross muscle atrophy], [1+ bilateral lower extremity pitting edema], [no contractures] Neuro: [no focal neuro deficits] Psych: [Alert], [oriented], [appropriate affect] - Labs CBC & Chem 7: 04/19/19 05:07 04/19/19 05:07 Labs: Abnormal Lab Results - Last 24 Hours (Table) 04/18/19 04/18/19 04/19/19 Range/Units 16:52 20:19 05:07 Neutrophils # 8.5 H (1.3-7.7) k/uL Lymphocytes # 0.8 L (1.0-4.8) k/uL BUN (9-20) mg/dL Glucose (74-99) mg/dL POC Glucose (mg/dL) 114 H 142 H (75-99) mg/dL 04/19/19 04/19/19 04/19/19 Range/Units 05:07 06:37 11:30 Neutrophils # (1.3-7.7) k/uL Lymphocytes # (1.0-4.8) k/uL BUN 26 H (9-20) mg/dL Glucose 166 H (74-99) mg/dL POC Glucose (mg/dL) 183 H 147 H (75-99) mg/dL Assessment and Plan Assessment: Assessment and plan Atrial fibrillation with RVR Systolic CHF Troponin elevation likely due to demand ischemia Diabetes mellitus with hyperglycemia Elevated BUN Resolved: Leukocytosis Plans: Continue digoxin and amiodarone by mouth. Telemetry monitoring. Eliquis for anticoagulation. As per cardiology, plans to observe overnight and DC if wi thin normal limits in the AM. Follow cardiology recommendations. Echocardiogram shows less than 20% EF. Plans: Needs cardiac catheterization, okay outpatient per cardiology. Continue beta kristi. Continue digoxin. Continue ANTHONY inhibitor. Lasix IV x one time today. Strict intake and output. Daily weights. Troponin 0.048, 0.092 with EKG showing atrial fibrillation with RVR. Likely due to demand ischemia. Plans: Trend troponin/EKG to rule out ACS. Follow cardiology recommendations. [id number] glucose 147. Plans on insulin sliding scale. Regular discharge. Hypoglycemic precautions. BUN 26. Likely due to dehydration. Plans: Encourage hydration by mouth. Repeat BMP in the morning. [Patient admitted for atrial fibrillation with RVR. Currently controlled. As per cardiology, observe for 1 more day. Likely DC tomorrow. Counseled on diet regarding new onset CHF.]
[2019-04-19 14:03] VITALS: BMI 33.9
[2019-04-19 16:59] LABS: Glucose,Whole Blood 111 mg/dL (75-99)
[2019-04-19] MEDS: ATORVASTATIN 10 MG TAB PO SCH (20:34)
[2019-04-19] MEDS: LISINOPRIL 5 MG TAB PO SCH (20:34)
[2019-04-19] MEDS: LATANOPROST 0.005% OPHTH DROPS 2.5 ML BTL BOTH EYES SCH (20:36)
[2019-04-19 20:41] LABS: Glucose,Whole Blood 128 mg/dL (75-99)
[2019-04-20 01:57] LABS: Glucose,Whole Blood 121 mg/dL (75-99)
[2019-04-20 04:56] LABS: African American GFR (CKD) >90 (>60 ml/min/1.73 sqM); Anion Gap 7 mmol/L; Blood Urea Nitrogen 29 mg/dL (9-20); Calcium 9.1 mg/dL (8.4-10.2); Carbon Dioxide 27 mmol/L (22-30); Chloride 104 mmol/L (98-107); Glucose 143 mg/dL (74-99); Potassium 3.7 mmol/L (3.5-5.1); Sodium 138 mmol/L (137-145)
[2019-04-20] MEDS: METOPROLOL TARTRATE 50 MG TAB PO SCH ×2 (05:45→21:25)
[2019-04-20] MEDS: DILTIAZEM 125 MG in SODIUM CHLORIDE 0.9% 100 ML IV SCH ×2 (06:07→21:00)
[2019-04-20] MEDS: INSULIN ASPART (NovoLOG) 100 UNIT/ML VIAL SQ SCH ×4 (06:45→21:29)
[2019-04-20 06:53] LABS: Glucose,Whole Blood 139 mg/dL (75-99)
[2019-04-20] MEDS ORDERED: DEXTROSE 5% IN WATER 100 ML with AMIODARONE 150 MG IV ONE (07:15)
[2019-04-20] MEDS: AMIODARONE 200 MG TAB PO SCH ×2 (07:54→21:25)
[2019-04-20] MEDS: FUROSEMIDE 10 MG/ML 4 ML VIAL IV SCH ×2 (07:55→16:50)
[2019-04-20] MEDS: APIXABAN 5 MG TAB PO SCH ×2 (07:55→21:25)
[2019-04-20] MEDS: GABAPENTIN 300 MG CAP PO SCH ×2 (07:55→21:25)
[2019-04-20] MEDS ORDERED: DIGOXIN 125 MCG TAB PO SCH (09:00)
[2019-04-20 11:42] LABS: Glucose,Whole Blood 123 mg/dL (75-99)
--- NOTE | 2019-04-20 12:12 | P.PN ---
Subjective Progress Note Date: 04/20/19 Principal diagnosis: A. fib with RVR, new onset CHF Patient was seen and examined. Went into A Fib with RVR, HR in the 120s overnight, given bolus of Amiodarone. Currently sinus rhythm. Patient reports no further palpitations since admission. He does continue to complain of some mild shortness of breath especially with exertion and laying flat. He complains of some mild lower extremity edema. He denies any chest pain. No nausea or vomiting. No fever or chills. Objective - Vital Signs Vital signs: Vital Signs Temp 98.1 F 04/20/19 08:00 Pulse 54 L 04/20/19 08:00 Resp 18 04/20/19 08:00 BP 103/57 04/20/19 08:00 Pulse Ox 92 L 04/20/19 08:00 Intake & Output 04/19/19 04/20/19 04/20/19 18:59 06:59 18:59 Intake Total 484.5 780 77 Output Total 700 250 Balance -215.5 780 -173 Weight 113.398 kg 111.9 kg Intake: Intake, IV Titration 8.5 77 Amount Diltiazem 125 mg In 8.5 Sodium Chloride 0.9% 100 ml @ 10 MG/HR 10 mls/hr IV .[id number] [facility] Rx#: [id number] Diltiazem 125 mg In 77 Sodium Chloride 0.9% 100 ml @ Per Protocol IV .Q0M [facility] Rx#:[id number] Oral 476 780 Output: Urine 700 250 Other: Voiding Method Toilet Urinal # Voids 1 1 1 # Bowel Movements 1 - Exam General: [non toxic], [no distress], [appears at stated age] Derm: [warm], [dry] Head: [atraumatic], [normocephalic], [symmetric] Eyes: [EOMI], [no lid lag], [anicteric sclera] Mouth: [no lip lesion], [mucus membranes moist] Cardiovascular: [S1S2 reg], [no murmur], [positive DP pulse bilateral], Lungs: [Decreased breath sounds bilateral], [no rhonchi, no rales] , [no accessory muscle use] Abdominal: [soft], [ nontender to palpation], [no guarding], [no appreciable organomegaly] Ext: [no gross muscle atrophy], [1+ bilateral lower extremity pitting edema], [no contractures] Neuro: [no focal neuro deficits] Psych: [Alert], [oriented], [appropriate affect] - Labs CBC & Chem 7: 04/19/19 05:07 04/20/19 04:26 Labs: Abnormal Lab Results - Last 24 Hours (Table) 04/19/19 04/19/19 04/20/19 Range/Units 16:56 20:39 01:54 BUN (9-20) mg/dL Glucose (74-99) mg/dL POC Glucose (mg/dL) 111 H 128 H 121 H (75-99) mg/dL Troponin I (0.000-0.034) ng/mL 04/20/19 04/20/19 04/20/19 Range/Units 04:26 04:26 06:42 BUN 29 H (9-20) mg/dL Glucose 143 H (74-99) mg/dL POC Glucose (mg/dL) 139 H (75-99) mg/dL Troponin I 0.080 H* (0.000-0.034) ng/mL 04/20/19 Range/Units 11:40 BUN (9-20) mg/dL Glucose (74-99) mg/dL POC Glucose (mg/dL) 123 H (75-99) mg/dL Troponin I (0.000-0.034) ng/mL Assessment and Plan Assessment: Assessment and plan Atrial fibrillation with RVR Systolic CHF exacerbation, acute Troponin elevation likely due to demand ischemia Diabetes mellitus with hyperglycemia Elevated BUN Resolved: Leukocytosis Plans: Continue digoxin and amiodarone by mouth. Amiodarone IV infused this morning for A. fib with RVR. Telemetry monitoring. Eliquis for anticoagulation. As per cardiology, plans to observe overnight and DC if within normal limits in the AM, or possible cardiac catheterization on Monday. Follow cardiology recommendations. Echocardiogram shows less than 20% EF. Plans: Needs cardiac catheterization, okay outpatient per cardiology. Continue beta kristi. Continue digoxin. Continue ANTHONY inhibitor. Start Lasix 40 mg IV 3 times a day. Strict intake and output. Daily weights. Repeat chest x-ray in the morning. Troponin 0.048, 0.092, 0.080 with EKG showing atrial fibrillation with RVR. Likely due to demand ischemia. Plans: ACS ruled out. Patient needs cardiac catheterization in the outpatient setting or on Monday if staying. Follow cardiology recommendations. [id number] glucose 143. Plans on insulin sliding scale. Regular discharge. Hypoglycemic precautions. BUN 29. Likely due to dehydration from Lasix. Plans: Encourage hydration by mouth. Repeat BMP in the morning. [Patient admitted for atrial fibrillation with RVR. Currently controlled. Medications adjusted. Will observe overnight. Likely DC in 1-2 days.]
--- NOTE | 2019-04-20 13:44 | PN ---
PROGRESS NOTE Mr. Montiel apparently presented to the ER 2 weeks ago with atrial fib, was placed on a beta kristi, Eliquis, sent home. He has come back in this time with increasing shortness of breath. His echo revealed ejection fraction of less than 20%. He is in atrial fib, rapid rate with a IVCD type picture. He has been going in and out of atrial fib last night. His Lopressor was increased. This morning, his breathing is easier. Rate is in the 110s and atrial fib with wide QRS. He is comfortable. Physical exam revealed blood pressure of 110/70, pulse rate is about 110 per minute. There is JVD of 1 cm. No carotid bruit. S1-S2 heard normally with irregularity rhythm. Short systolic murmur. Lungs reveal fine rales over both bases. IMPRESSION: 1. Exacerbation of systolic heart failure with ejection fraction of less than 20%. 2. New onset atrial fibrillation with rapid ventricular rate. 3. Cardiomyopathy of unclear etiology. The patient is not an alcoholic. RECOMMENDATIONS: I am recommending that we discontinue aspirin, continue Eliquis 5 mg b.i.d., add Lasix at 40 mg q.8 hours, decrease the digoxin to 125 mcg daily, I gave him a bolus of amiodarone. I will check a BNP, BMP and CBC. I discussed my thoughts in detail with the patient. MMDAEL / IJN: [id number] /
[2019-04-20 17:00] LABS: Glucose,Whole Blood 214 mg/dL (75-99)
[2019-04-20 17:00] LABS: Glucose,Whole Blood 197 mg/dL (75-99)
[2019-04-20 20:30] LABS: Glucose,Whole Blood 149 mg/dL (75-99)
[2019-04-20] MEDS: ATORVASTATIN 10 MG TAB PO SCH (21:25)
[2019-04-20] MEDS: LISINOPRIL 5 MG TAB PO SCH (21:26)
[2019-04-20] MEDS: LATANOPROST 0.005% OPHTH DROPS 2.5 ML BTL BOTH EYES SCH (21:28)
[2019-04-21] MEDS: FUROSEMIDE 10 MG/ML 4 ML VIAL IV SCH ×3 (00:34→16:54)
[2019-04-21 04:36] LABS: HCT 43.9 % (39.0-53.0); HGB 14.4 gm/dL (13.0-17.5); MCHC 32.9 g/dL (31.0-37.0); MCV 88.2 fL (80.0-100.0); Mean Platelet Volume 8.2; Platelet Count 250 k/uL (150-450); RBC 4.98 m/uL (4.30-5.90); RDW 14.1 % (11.5-15.5); WBC 9.7 k/uL (3.8-10.6)
[2019-04-21 04:44] LABS: African American GFR (CKD) >90 (>60 ml/min/1.73 sqM); Anion Gap 8 mmol/L; Blood Urea Nitrogen 27 mg/dL (9-20); Calcium 9.1 mg/dL (8.4-10.2); Carbon Dioxide 30 mmol/L (22-30); Chloride 102 mmol/L (98-107); Glucose 163 mg/dL (74-99); Potassium 4.4 mmol/L (3.5-5.1); Sodium 140 mmol/L (137-145)
--- NOTE | 2019-04-21 06:38 | XR ---
EXAMINATION TYPE: XR chest 2V DATE OF EXAM: 04/21/2019 HISTORY: CHF. REFERENCE: Previous study dated 04/18/2019. FINDINGS: The heart Heart remains enlarged. Pulmonary vasculature and interstitial changes improved. There are small, bilateral effusions. IMPRESSION: IMPROVING CHANGES OF CONGESTIVE HEART FAILURE.
[2019-04-21 06:57] LABS: Glucose,Whole Blood 151 mg/dL (75-99)
--- NOTE | 2019-04-21 07:58 | PN ---
PROGRESS NOTE Mr. Montiel has dilated LV with ejection fraction of less than 20%. Compared to yesterday, he feels 100% better. I gave him some Lasix 40 mg q.8 hours for 3 doses. He is in sinus rhythm with a left bundle. I am recommending we discontinue digoxin, decrease the Lasix to q.12 hours and switch him to oral Lasix tomorrow. Obtain a BMP. Patient can be discharged tomorrow and have coronary angiography as an outpatient to rule out obstructive CAD as a cause of his cardiomyopathy. Clinically, he has improved a lot. He is maintaining sinus rhythm. We will continue amiodarone at 400 mg b.i.d. MMODL / IJN: [id number] /
[2019-04-21] MEDS: INSULIN ASPART (NovoLOG) 100 UNIT/ML VIAL SQ SCH ×4 (08:04→21:10)
[2019-04-21] MEDS: METOPROLOL TARTRATE 50 MG TAB PO SCH ×2 (08:05→21:09)
[2019-04-21] MEDS: AMIODARONE 200 MG TAB PO SCH ×2 (08:05→21:08)
[2019-04-21] MEDS: APIXABAN 5 MG TAB PO SCH ×2 (08:05→21:08)
[2019-04-21] MEDS: GABAPENTIN 300 MG CAP PO SCH ×2 (08:06→21:08)
[2019-04-21 12:13] LABS: Glucose,Whole Blood 132 mg/dL (75-99)
--- NOTE | 2019-04-21 12:45 | P.PN ---
Subjective Progress Note Date: 04/21/19 Principal diagnosis: A. fib with RVR, new onset CHF Patient was seen and examined. Heart rate currently well controlled in the 60s. Currently sinus rhythm. Patient reports significant improvement in his breathing since yesterday. He complains of some mild lower extremity edema. He denies any chest pain. No nausea or vomiting. No fever or chills. Objective - Vital Signs Vital signs: Vital Signs Temp 98.3 F 04/21/19 06:00 Pulse 54 L 04/21/19 06:00 Resp 18 04/21/19 06:00 BP 118/63 04/21/19 06:00 Pulse Ox 96 04/21/19 06:00 Intake & Output 04/20/19 04/21/19 04/21/19 19:59 06:59 18:59 Intake Total Output Total Balance Intake: Oral Output: Urine Other: Voiding Method # Voids # Bowel Movements - Exam General: [non toxic], [no distress], [appears at stated age] Derm: [warm], [dry] Head: [atraumatic], [normocephalic], [symmetric] Eyes: [EOMI], [no lid lag], [anicteric sclera] Mouth: [no lip lesion], [mucus membranes moist] Cardiovascular: [S1S2 reg], [no murmur], [positive DP pulse bilateral], Lungs: [Decreased breath sounds bilateral], [no rhonchi, no rales] , [no accessory muscle use] Abdominal: [soft], [ nontender to palpation], [no guarding], [no appreciable organomegaly] Ext: [no gross muscle atrophy], [1+ bilateral lower extremity pitting edema], [no contractures] Neuro: [no focal neuro deficits] Psych: [Alert], [oriented], [appropriate affect] - Labs CBC & Chem 7: 04/21/19 04:02 04/21/19 04:03 Labs: Abnormal Lab Results - Last 24 Hours (Table) 04/20/19 04/20/19 04/20/19 Range/Units 16:56 16:58 20:28 BUN (9-20) mg/dL Glucose (74-99) mg/dL POC Glucose (mg/dL) 197 H 214 H 149 H (75-99) mg/dL 04/21/19 04/21/19 04/21/19 Range/Units 04:03 06:55 12:11 BUN 27 H (9-20) mg/dL Glucose 163 H (74-99) mg/dL POC Glucose (mg/dL) 151 H 132 H (75-99) mg/dL Assessment and Plan Assessment: Assessment and plan Atrial fibrillation with RVR Systolic CHF exacerbation, acute Troponin elevation likely due to demand ischemia Diabetes mellitus with hyperglycemia Elevated BUN Resolved: Leukocytosis Plans: Continue amiodarone by mouth. Digoxin discontinued by cardiology. Telemetry monitoring. Eliquis for anticoagulation. As per cardiology, plans to observe overnight and DC if within normal limits in the AM. Follow cardiology recommendations. Chest x-ray shows improving changes of CHF. Echocardiogram shows less than 20% EF. Plans: Needs cardiac catheterization, okay outpatient per cardiology. Continue beta kristi. Continue ANTHONY inhibitor. Lasix decreased from 40 mg IV 3 times a day to twice a day today, transition to oral tomorrow. Strict intake and output. Daily weights. Troponin 0.048, 0.092, 0.080 with EKG showing atrial fibrillation with RVR. Likely due to demand ischemia. Plans: ACS ruled out. Patient needs cardiac catheterization in the outpatient setting or on Monday if staying. Follow cardiology recommendations. [id number] glucose 143. Plans on insulin sliding scale. Regular discharge. Hypoglycemic precautions. BUN 29-27. Likely due to dehydration from Lasix. Plans: Encourage hydration by mouth. Repeat BMP in the morning. [Patient admitted for atrial fibrillation with RVR. Currently controlled. Medications adjusted. Transition to oral Lasix tomorrow morning and plan on possible discharge.]
[2019-04-21] MEDS: DILTIAZEM 125 MG in SODIUM CHLORIDE 0.9% 100 ML IV SCH ×2 (14:43→21:18)
[2019-04-21 16:57] LABS: Glucose,Whole Blood 225 mg/dL (75-99)
[2019-04-21 21:06] LABS: Glucose,Whole Blood 164 mg/dL (75-99)
[2019-04-21] MEDS: ATORVASTATIN 10 MG TAB PO SCH (21:08)
[2019-04-21] MEDS: LISINOPRIL 5 MG TAB PO SCH (21:10)
[2019-04-21] MEDS: LATANOPROST 0.005% OPHTH DROPS 2.5 ML BTL BOTH EYES SCH (21:48)
[2019-04-22 05:06] LABS: African American GFR (CKD) >90 (>60 ml/min/1.73 sqM); Blood Urea Nitrogen 28 mg/dL (9-20); Calcium 9.3 mg/dL (8.4-10.2); Carbon Dioxide 29 mmol/L (22-30); Glucose 165 mg/dL (74-99)
[2019-04-22 05:36] LABS: Anion Gap 7 mmol/L; Chloride 102 mmol/L (98-107); Potassium 4.1 mmol/L (3.5-5.1); Sodium 138 mmol/L (137-145)
[2019-04-22 06:55] LABS: Glucose,Whole Blood 166 mg/dL (75-99)
[2019-04-22] MEDS: INSULIN ASPART (NovoLOG) 100 UNIT/ML VIAL SQ SCH ×2 (07:05→12:23)
[2019-04-22] MEDS: APIXABAN 5 MG TAB PO SCH (08:39)
[2019-04-22] MEDS: DILTIAZEM 125 MG in SODIUM CHLORIDE 0.9% 100 ML IV SCH (08:39)
[2019-04-22] MEDS: AMIODARONE 200 MG TAB PO SCH (08:39)
[2019-04-22] MEDS: GABAPENTIN 300 MG CAP PO SCH (08:39)
[2019-04-22] MEDS ORDERED: FUROSEMIDE 40 MG TAB PO SCH (09:00)
--- NOTE | 2019-04-22 09:43 | CDI ---
Documentation Clarification Form Date: 04/22/2019 8:47:00 AM From: Shira Irene RN, CCDS Admit Date: 04/18/2019 4:09:00 AM Patient Name: Thiago Montiel Visit Number: [id number] Discharge Date: ATTENTION: The Clinical Documentation Specialists (CDI) and [facility] Coding Staff appreciate your assistance in clarifying documentation. Please respond to the clarification below the line at the bottom and electronically sign. The CDI & [facility] Coding staff will review the response and follow-up if needed. Please note: Queries are made part of the Legal Health Record. If you have any questions, please contact the author of this message via ITS. Dr. Amanda Zimmer The patient presented with palpitations, pound in his chest mild elevation of his troponins per Emergency room evaluation likely secondary to supply demand mismatch due to profound tachycardia 03/21/19: In your progress note ACS ruled out. History/Risk Factors: Atrial Fibrillation, Hypertension, Dyslipidemia Clinical Indicators: 83-year-old male present with atrial fibrillations with RVR with symptomatic palpitations and shortness or breath. Patient complains of heart racing profusely sweating denies any chest pain denies any nausea vomiting, fevers or chills. Lab findings: Troponin I 0.048, 0.092, 0.080 ECHO: Atrial fibrillation, left ventricular systolic function is severe impaired with, an ED<20 %: Vital Signs: 106/79 140 18 98 % 3/L, 120/59 129 16 EKG: Atrial fibrillation with RVR@ 140 beats per minute Treatment: Ceramics Instructor Robin Frank PO Consults: () Persistent atrial fibrillation with rapid ventricular rate. In your professional opinion, can you please clarify if the demand ischemia is? Type 2 Myocardial infarction Acute ischemic heart disease Other, please specify Unable to determine (Last Revision: September 2017) type 2 MI MTDD
[2019-04-22 12:03] LABS: Glucose,Whole Blood 167 mg/dL (75-99)
--- NOTE | 2019-04-22 12:09 | P.DS ---
Providers Date of admission: 04/18/19 04:09 Expected date of discharge: 04/22/19 Attending physician: Swati Pickens MD Consults: 04/18/19 04:10 Consult Physician Urgent Consulting Provider: Huang Sandra Consult Reason/Comments: rvr Do you want consulting provider notified?: Yes Primary care physician: [facility] Course: 83-year-old male with PMH of atrial fibrillation, diabetes mellitus, hypertension presents the ED for shortness of breath and palpitations. He was found to be in A. fib with RVR and admitted for further management and workup. Patient was initially started on a Cardizem drip which was transitioned to amiodarone by mouth. Patient kept going into A. fib with RVR overnight with heart rate in the 120s and was given a bolus of amiodarone IV. His home medication of metoprolol was continued. Patient was initially started on digoxin as well which was discontinued by cardiology. Eliquis was resumed for anticoagulation. Cardiology suggested that the patient could be discharged on amiodarone 200 mg by mouth twice a day and metoprolol 25 mg by mouth twice a day. Echocardiogram was done which showed severe decrease in ejection fraction of 20%. Chest x-ray initially showed CHF changes. Patient was diuresed with Lasix 40 mg IV 3 times a day for 1 day. His Lasix was transitioned to Lasix by mouth at the time of discharge. Patient was noted to have slightly elevated troponin of 0.048, 0.092, 0.080 with EKG showing atrial fibrillation with RVR. This is thought to be likely secondary to demand ischemia. Cardiology recommended cardiac catheterization after following up in the outpatient setting. Patient was seen and examined. No acute events overnight. Patient denies any chest, shortness of breath or palpitations. Looking forward to going home. No episodes of A. fib overnight. General: [non toxic], [no distress], [appears at stated age] Derm: [warm], [dry] Head: [atraumatic], [normocephalic], [symmetric] Eyes: [EOMI], [no lid lag], [anicteric sclera] Mouth: [no lip lesion], [mucus membranes moist] Cardiovascular: [S1S2 reg], [no murmur], [positive DP pulse bilateral], Lungs: [Decreased breath sounds bilateral], [no rhonchi, no rales] , [no accessory muscle use] Abdominal: [soft], [ nontender to palpation], [no guarding], [no appreciable organomegaly] Ext: [no gross muscle atrophy], [1+ bilateral lower extremity pitting edema], [no contractures] Neuro: [no focal neuro deficits] Psych: [Alert], [oriented], [appropriate affect] Assessment and plan Atrial fibrillation with RVR Systolic CHF exacerbation, acute Troponin elevation likely due to demand ischemia Diabetes mellitus with hyperglycemia Elevated BUN Resolved: Leukocytosis Plans: Continue amiodarone by mouth along with metoprolol. Telemetry monitoring. Eliquis for anticoagulation. Cleared for discharge from cardiology perspective per RN. Chest x-ray shows improving changes of CHF. Echocardiogram shows less than 20% EF. Plans: Needs cardiac catheterization, okay outpatient per cardiology. Continue beta kristi. Continue ANTHONY inhibitor. Lasix switched from IV to 40 mg by mouth twice a day. Strict intake and output. Daily weights. Troponin 0.048, 0.092, 0.080 with EKG showing atrial fibrillation with RVR. Likely due to demand ischemia. Plans: ACS ruled out. Patient needs cardiac catheterization in the outpatient setting. Follow cardiology recommendations. [id number] glucose 166. Plans on insulin sliding scale. Regular discharge. Hypoglycemic precautions. BUN 29-27-28. Likely due to dehydration from Lasix. Plans: Encourage hydration by mouth. Repeat BMP in the morning. [Patient admitted for atrial fibrillation with RVR. Currently controlled. Medications adjusted. DC today. Will need cardiology follow-up for cardiac catheterization in the outpatient setting.] Pertinent Studies: Chest x-ray, echocardiogram Patient Condition at Discharge: Serious Plan - Discharge Summary Discharge Rx Participant: Yes New Discharge Prescriptions: No Action metFORMIN HCL [Glucophage] 500 mg PO BID glipiZIDE [Glucotrol] 2.5 mg PO AC-BID Simvastatin [Zocor] 10 mg PO HS Potassium Chloride [Klor-Con 10] 10 meq PO DAILY Pioglitazone [Actos] 30 mg PO DAILY Losartan/Hydrochlorothiazide [Losartan-Hctz 100-25 mg Tab] 1 tab PO DAILY RX: Aspirin [Adult Low Dose Aspirin EC] 81 mg PO DAILY 10 Days #10 tablet. RX: Latanoprost Ophth [Xalatan 0.005%] 1 drop BOTH EYES HS Rizatriptan Odt [Maxalt Supervisor Carbon [employer]des] 10 mg PO DAILY PRN PRN Reason: Migraine Headache Vardenafil HCl [Levitra] 20 mg PO DAILY PRN PRN Reason: E.D Gabapentin [Neurontin] 300 mg PO BID Felodipine [Felodipine ER] 5 mg PO DAILY RX: Metoprolol Tartrate [Lopressor] 25 mg PO BID RX: Apixaban [Eliquis] 5 mg PO BID Discharge Medication List Losartan/Hydrochlorothiazide [Losartan-Hctz 100-25 mg Tab] 1 tab PO DAILY 03/21/19 [History] Pioglitazone [Actos] 30 mg PO DAILY 03/21/19 [History] Potassium Chloride [Klor-Con 10] 10 meq PO DAILY 03/21/19 [History] RX: Aspirin [Adult Low Dose Aspirin EC] 81 mg PO DAILY 10 Days #10 tablet. 03/21/19 [Rx] Simvastatin [Zocor] 10 mg PO HS 03/21/19 [History] glipiZIDE [Glucotrol] 2.5 mg PO AC-BID 03/21/19 [History] metFORMIN HCL [Glucophage] 500 mg PO BID 03/21/19 [History] Felodipine [Felodipine ER] 5 mg PO DAILY 04/18/19 [History] Gabapentin [Neurontin] 300 mg PO BID 04/18/19 [History] RX: Apixaban [Eliquis] 5 mg PO BID 04/18/19 [History] RX: Latanoprost Ophth [Xalatan 0.005%] 1 drop BOTH EYES HS 04/18/19 [History] RX: Metoprolol Tartrate [Lopressor] 25 mg PO BID 04/18/19 [History] Rizatriptan Odt [Maxalt Supervisor Carbon Electrodes] 10 mg PO DAILY PRN 04/18/19 [History] Vardenafil HCl [Levitra] 20 mg PO DAILY PRN 04/18/19 [History] Follow up Appointment(s)/Referral(s): Saud Ibarra MD [Primary Care Provider] - 1-2 days
[2019-04-22 12:29] VITALS: BP 116/70; PULSE 71; RESP 16; TEMP 98.2
[2019-04-22 13:39] LABS: Glucose,Whole Blood 142 mg/dL (75-99)
--- NOTE | 2019-04-22 14:27 | PN ---
PROGRESS NOTE Thiago is an 83-year-old gentleman who was admitted to the hospital with persistent atrial fibrillation with rapid ventricular rate. He converted to sinus rhythm on amiodarone. This morning, he stays in sinus rhythm and he is free of symptoms. An echocardiogram showed severe LV systolic dysfunction. I advised the patient to undergo cardiac catheterization. He is going to be discharged home and he will get this done on Monday. He has been explained risks, benefits and alternatives, understood and accepted. On examination, he is comfortable at rest. Heart rate is 58 beats per minute. Respiratory rate is 18. Blood pressure is 137/71. Chest exam reveals good air entry bilaterally. Heart exam reveals first and second heart sounds. No gallop. Abdomen is soft. Exam of the extremities did not reveal any edema. Peripheral pulses are felt. SHIPPING CLERK/ADMIN exam did not reveal focal neurological deficits. The patient is currently on amiodarone 200 b.i.d., Eliquis 5 b.i.d., Lipitor 10 daily, Lasix and Zestril along with metoprolol. ASSESSMENT: 1. Paroxysmal atrial fibrillation. 2. Dilated cardiomyopathy with severe LV dysfunction. PLAN: The patient will be discharged home today and he will be scheduled for an outpatient cardiac cath. MMODL / IJN: [id number] /
[2019-04-22] MEDS ORDERED: AMIODARONE 200 MG TAB PO SCH (21:00)
[2019-04-22] MEDS ORDERED: METOPROLOL TARTRATE 25 MG TAB PO SCH (21:00)
== END 2019-04-22 13:45 | disposition home or self-care (01) | DRG 280 ==
LOC: EC 03:17 → 2SICU 04:09
PROVIDERS: ADMIT Internal Medicine; ATTEND Internal Medicine
DX: I48.19 Other persistent atrial fibrillation (principal); I50.23 Acute on chronic systolic (congestive) heart failure; I21.A1 Myocardial infarction type 2; D72.829 Elevated white blood cell count, unspecified; E11.65 Type 2 diabetes mellitus with hyperglycemia; E78.5 Hyperlipidemia, unspecified; E86.0 Dehydration; I08.1 Rheumatic disorders of both mitral and tricuspid valves; I11.0 Hypertensive heart disease with heart failure; I27.20 Pulmonary hypertension, unspecified; I42.0 Dilated cardiomyopathy; I44.7 Left bundle-branch block, unspecified; J40 Bronchitis, not specified as acute or chronic; T50.1X5A Adverse effect of loop [high-ceiling] diuretics, initial encounter; Z79.01 Long term (current) use of anticoagulants; Z79.4 Long term (current) use of insulin; Z79.82 Long term (current) use of aspirin; Z79.899 Other long term (current) drug therapy; R94.4 Abnormal results of kidney function studies; Z98.49 Cataract extraction status, unspecified eye
CPT/HCPCS: 36415; 71045; 71046; 80048; 80053; 83735; 83880; 84484; 85025; 85027; 85610; 85730; 93005; 93306; 96365; 96366; 96375; 96376; 99285

== ENCOUNTER → 2019-05-22 | Outpatient (CLI) | payer MEDICARE, BC ==
[2019-05-22 11:17] LABS: HCT 50.9 % (39.0-53.0); HGB 16.5 gm/dL (13.0-17.5); MCHC 32.4 g/dL (31.0-37.0); MCV 89.5 fL (80.0-100.0); Platelet Count 204 k/uL (150-450); RBC 5.69 m/uL (4.30-5.90); RDW 14.5 % (11.5-15.5); WBC 7.5 k/uL (3.8-10.6)
[2019-05-22 17:56] LABS: African American GFR (CKD) 72.6 (60.0-200.0); Anion Gap 9.6 mmol/L (4.00-12.00); BUN/Creat Ratio 22.73 Ratio (12.00-20.00); Calcium 9.6 mg/dL (8.7-10.3); Carbon Dioxide 27.4 mmol/L (21.6-31.8); Non-African American GFR(CKD) 62.6 (60.0-200.0); Potassium 4.7 mmol/L (3.5-5.5)
[2019-05-22 18:03] LABS: T4, Free (Free Thyroxine) 1.3 ng/dL (0.80-1.80)
== END ==
LOC: LABWHC1 10:14
PROVIDERS: ATTEND Internal Medicine Interventional Cardiology
DX: E03.2 Hypothyroidism due to medicaments and other exogenous substances (principal); I48.0 Paroxysmal atrial fibrillation
CPT/HCPCS: 36415; 80048; 84439; 84443; 84450; 84460; 85027

== ENCOUNTER 2019-05-23 09:14 | Day surgery (SDC) | payer MEDICARE, BC ==
[~2019-05-23 09:14] MED LIST: ALPRAZolam 0.25 MG TAB PO PRN; ALPRAZolam 0.5 MG TAB PO PRN; ASPIRIN 325 MG TAB PO STA; ATORVASTATIN 80 MG TAB PO STA; NITROGLYCERIN SL TABS 0.4 MG TAB SUBLINGUAL PRN; SODIUM CHLORIDE 0.9% 1,000 ML in EMPTY BAG 1 BAG IV ONE
[2019-05-23 10:17] LABS: Glucose,Whole Blood 169 mg/dL (75-99)
[2019-05-23] MEDS ORDERED: LIDOCAINE 1% INJ 10MG/ML (20 ML MDV) SQ ONE (12:24)
[2019-05-23] MEDS ORDERED: fentaNYL (PF) 50 MCG/ML 2 ML AMP IV ONE (12:24)
[2019-05-23] MEDS ORDERED: MIDAZOLAM 2 MG/2 ML VIAL IV ONE (12:24)
[2019-05-23] MEDS ORDERED: BIVALIRUDIN BOLUS 250 MG/50 ML IV ONE (12:52)
[2019-05-23] MEDS ORDERED: BIVALIRUDIN 250 MG in SODIUM CHLORIDE 0.9% 50 ML IV ONE (12:53)
[2019-05-23] MEDS ORDERED: IOPAMIDOL-370 125ML BTL INJ ONE (13:08)
[2019-05-23] MEDS ORDERED: NITROGLYCERIN 1000MCG/10ML SYRINGE INTRAARTER ONE (13:18)
[2019-05-23] MEDS ORDERED: MAG HYDROX/AL HYDROX/SIMETH 30 ML CUP PO PRN (13:28)
[2019-05-23] MEDS ORDERED: CLOPIDOGREL 75 MG TAB PO ONE (13:28)
[2019-05-23] MEDS ORDERED: RX INFO: IV CONTRAST WAS GIVEN 1 EACH MISC MISCELLANE PRN (13:28)
[2019-05-23] MEDS ORDERED: ATROPINE SULFATE 0.1 MG/ML 10ML SYRINGE IV PRN (13:28)
[2019-05-23] MEDS ORDERED: IOPAMIDOL-370 100ML BTL INJ ONE (13:29)
[2019-05-23 15:32] VITALS: BMI 33.0
[2019-05-23 16:31] LABS: Glucose,Whole Blood 141 mg/dL (75-99)
[2019-05-23] MEDS: SODIUM CHLORIDE 0.9% 1,000 ML IV SCH (17:09)
[2019-05-23 20:08] LABS: Glucose,Whole Blood 250 mg/dL (75-99)
--- NOTE | 2019-05-23 20:37 | CC ---
CARDIAC CATHETERIZATION REPORT INDICATION: Ischemic cardiomyopathy. PROCEDURE NOTE: After obtaining informed consent, left heart catheterization and coronary angiogram were performed via the right femoral artery using standard Tom catheters. The patient tolerated the procedure well without any obvious immediate complications. FINDINGS: 1. HEMODYNAMICS: Left ventricular end-diastolic pressure is 20 mm. There is no significant gradient across the aortic valve. 2. LEFT VENTRICULOGRAM: Left ventriculogram was not performed. 3. ANGIOGRAPHIC DATA: LEFT MAIN CORONARY ARTERY: Left main coronary artery is a normal-sized vessel and is free of stenosis. It divides into left anterior descending coronary artery and circumflex coronary artery. Circumflex coronary artery is a dominant vessel. There is a focal tight stenosis involving the large-caliber first OM branch. At its worst, it seems to be an 80% to 90% stenosis. LAD appears diffusely diseased, heavily calcified. At its worst, it seems to be a 40% stenosis. A small-caliber diagonal branch shows diffuse disease, including focal area of 70% to 80% stenosis. RIGHT CORONARY ARTERY: This is a small-caliber vessel. It is not dominant, shows diffuse disease involving the proximal third. CONCLUSIONS: 1. Stenosis of 80% involving the large-caliber OM branch. 2. Moderate diffuse disease involving the LAD, which is a heavily calcified vessel. 3. There is a small-caliber diagonal branch that shows diffuse disease. 4. LAD in the mid portion has a borderline lesion. PLAN: Patient will undergo angioplasty of the OM branch and may need FFR of the LAD down the road. MMODL / IJN: [id number] /
[2019-05-23] MEDS ORDERED: LATANOPROST 0.005% OPHTH DROPS 2.5 ML BTL BOTH EYES SCH (21:00)
[2019-05-23] MEDS ORDERED: ATORVASTATIN 80 MG TAB PO SCH (21:00)
--- NOTE | 2019-05-23 22:06 | PTCA ---
PERCUTANEOUSTRANS CORORONARY ANGIOGRAPHY DATE OF SERVICE: 05/23/2019 PROCEDURE: PTCA and stenting of a large first obtuse marginal branch with a drug-eluting stent. PERFORMED BY: Dr. Guero Hoff. SEDATION: Moderate conscious sedation time was 29 minutes. Patient was administered Versed. Oxygen saturation, hemodynamics and EKG were monitored closely. CLINICAL INFORMATION: Mr. Thiago Montiel is an 83-year-old gentleman with new onset atrial fib and cardiomyopathy, was seen and evaluated by Dr. Craig, advised cardiac cath because of cardiomyopathy and study revealed a 95% stenosis involving the first obtuse marginal which was a very tight critical lesion. He had moderate disease of about 50% in the mid LAD segment and also the diagonal is a small caliber vessel, had 80% stenosis. RCA did not have significant disease. He was advised intervention of the circumflex that was performed expeditiously. PROCEDURE NOTE: The existing 6-Korean introducer in the right femoral artery was used to perform the procedure. I used a standard JL4 guide catheter to cannulate the left coronary artery. This was a 6-Korean catheter. A run-through wire was used to cross the lesion. Predilatation was performed with 8 mm long 2.5 caliber NC Trek balloon at 12 atmospheres. I then deployed a 12 mm long 3.0 caliber Xience stent at 13 atmospheres. The patient did not have any significant chest pain. Excellent angiographic result without complication was achieved. I obtained additional pictures of the LAD to see if there was a critical lesion. I felt he had no more than 50-55 percent lesion. Excellent angiographic result of circumflex was achieved. The sheath was taken out and an Angio-Seal device used to secure hemostasis and he was sent to the room in a stable condition. The patient received Angiomax bolus and infusion as per protocol and he also received 600 mg of Plavix orally. He will be on dual antiplatelet therapy. After about 2 weeks, we will add Eliquis 5 mg b.i.d. and discontinue the aspirin 81 mg daily, but we will continue Plavix 75 mg daily. This was discussed with the patient and family. He will be discharged tomorrow if he remains stable. MMODL / IJN: [id number] /
[2019-05-24 03:20] VITALS: TEMP 97.5
[2019-05-24 06:00] LABS: Glucose,Whole Blood 135 mg/dL (75-99)
[2019-05-24 06:35] LABS: Basophils # (A) 0.1 k/uL (0-0.2); Basophils % (A) 1 %; Eosinophils # (A) 0.2 k/uL (0-0.7); Eosinophils % (A) 2 %; HCT 44.8 % (39.0-53.0); HGB 14.6 gm/dL (13.0-17.5); Lymphocytes # (A) 1.3 k/uL (1.0-4.8); Lymphocytes % (A) 16 %; MCH 29.1 pg (25.0-35.0); MCHC 32.5 g/dL (31.0-37.0); MCV 89.7 fL (80.0-100.0); Mean Platelet Volume 8.1; Monocytes # (A) 0.5 k/uL (0-1.0); Monocytes % (A) 6 %; Neutrophils # (A) 6.1 k/uL (1.3-7.7); Neutrophils % (A) 72 %; Platelet Count 156 k/uL (150-450); RDW 14.5 % (11.5-15.5); WBC 8.4 k/uL (3.8-10.6)
[2019-05-24 07:01] LABS: African American GFR (CKD) >90 (>60 ml/min/1.73 sqM); Anion Gap 9 mmol/L; Blood Urea Nitrogen 20 mg/dL (9-20); Carbon Dioxide 22 mmol/L (22-30); Chloride 109 mmol/L (98-107); Glucose 137 mg/dL (74-99); Non-African American GFR(CKD) 90 (>60 ml/min/1.73 sqM); Potassium 4.1 mmol/L (3.5-5.1); Sodium 140 mmol/L (137-145)
[2019-05-24] MEDS: SODIUM CHLORIDE 0.9% 1,000 ML IV SCH (08:35)
[2019-05-24 08:47] VITALS: BP 161/72; PULSE 60; RESP 17
[2019-05-24] MEDS ORDERED: ASPIRIN 81 MG PO SCH ×2 (09:00)
[2019-05-24] MEDS ORDERED: METOPROLOL TARTRATE 12.5 MG TAB PO SCH (09:00)
[2019-05-24] MEDS ORDERED: LOSARTAN-HCTZ 50-12.5 MG 1 EACH TAB PO SCH (09:00)
[2019-05-24] MEDS ORDERED: AMIODARONE 200 MG TAB PO SCH (09:00)
[2019-05-24] MEDS ORDERED: POTASSIUM CHLORIDE ER 10 MEQ TAB.ER.PRT PO SCH (09:00)
[2019-05-24] MEDS ORDERED: amLODIPine 5 MG TAB PO SCH (09:00)
[2019-05-24] MEDS ORDERED: FUROSEMIDE 40 MG TAB PO SCH (09:00)
[2019-05-24] MEDS ORDERED: APIXABAN 2.5 MG TABLET PO SCH (09:00)
[2019-05-24] MEDS ORDERED: CLOPIDOGREL 75 MG TAB PO SCH (12:00)
--- NOTE | 2019-05-24 21:18 | DS ---
DISCHARGE SUMMARY DATE OF ADMISSION: 05/23/2019. DATE OF DISCHARGE: May 24, 2019. PROCEDURES PERFORMED: 1. Left heart catheterization. 2. Angioplasty with stent placement of OM branch. HOSPITAL COURSE: This is an 83-year-old with history of paroxysmal atrial fibrillation and cardiomyopathy, who was advised to undergo cardiac catheterization to evaluate for ischemic heart disease. His cardiac catheterization revealed moderate stenosis involving mid LAD and critical stenosis involving the OM branch for which he underwent angioplasty with stent placement. He has done well overnight and is currently free of symptoms. His groin is free of bleeding, bruit or hematoma. Patient EKG today shows sinus rhythm with left bundle branch block. Condition at the time of discharge: The patient is free of symptoms. Vitals signs stable. Chest exam reveals good air entry bilaterally. Heart exam reveals first and second heart sounds. No gallop. Abdomen is soft. Groin is free of bleeding, bruit or hematoma. Foot pulses are intact. LABS: Labs show that the hemoglobin is 14.6, platelet count is 156, potassium is 4.1, creatinine is 0.68. DISCHARGE MEDICATIONS: The patient will go home on aspirin 81 mg daily, Plavix 75 mg daily, Lipitor 80 daily, Eliquis 2.5 b.i.d., amiodarone 200 daily, metformin will be held for 48 hours. Continue the Glucotrol, K-Dur, Lasix 40 mg daily, metoprolol 12.5 mg b.i.d. FOLLOWUP: The patient will be seen by me in the office in 2 weeks time in my [place] office. MMDAEL / MOIZN: [id number] /
== END 2019-05-24 11:04 | disposition home or self-care (01) ==
LOC: CATHCVL 09:14 → 3SCARD 13:42 → CATHCVL 05-24 11:04
PROVIDERS: ATTEND Internal Medicine Cardiovascular Disease
DX: I25.10 Atherosclerotic heart disease of native coronary artery without angina pectoris (principal); I25.5 Ischemic cardiomyopathy; I48.0 Paroxysmal atrial fibrillation; I44.7 Left bundle-branch block, unspecified; I42.0 Dilated cardiomyopathy; I11.0 Hypertensive heart disease with heart failure; I50.22 Chronic systolic (congestive) heart failure; E11.9 Type 2 diabetes mellitus without complications; Z79.01 Long term (current) use of anticoagulants; Z79.899 Other long term (current) drug therapy; Z79.84 Long term (current) use of oral hypoglycemic drugs
CPT/HCPCS: 93458; 80048; 85025; C9600; C1769 ×3; C1760; C1887; C1725; C1894; C1874; J2250; J2001; J3010; J0583; Q9967 ×2

== ENCOUNTER 2020-02-17 07:45 | Day surgery (SDC) | payer MEDICARE, BC ==
[2020-02-11 16:13] VITALS: BMI 33.2
[~2020-02-17 07:45] MED LIST changes: -ALPRAZolam 0.25 MG TAB PO PRN; -ALPRAZolam 0.5 MG TAB PO PRN; -ASPIRIN 325 MG TAB PO STA; -ATORVASTATIN 80 MG TAB PO STA; +LACTATED RINGERS 1,000 ML IV SCH; -NITROGLYCERIN SL TABS 0.4 MG TAB SUBLINGUAL PRN; +SODIUM CHLORIDE 0.9% 1,000 ML IV SCH; -SODIUM CHLORIDE 0.9% 1,000 ML in EMPTY BAG 1 BAG IV ONE; +ceFAZolin 1,000 MG in SODIUM CHLORIDE 0.9% IRRIGATIO 250 ML IRRIGATION ONE
[2020-02-17] MEDS ORDERED: SODIUM CHLORIDE 0.9% 1,000 ML IV ONE (08:10)
[2020-02-17 08:31] LABS: Glucose,Whole Blood 181 mg/dL (75-99)
[2020-02-17] MEDS ORDERED: diphenhydrAMINE 50 MG/ML 1 ML VIAL ONE (08:50)
[2020-02-17] MEDS ORDERED: fentaNYL (PF) 50 MCG/ML 2 ML AMP ONE (08:50)
[2020-02-17] MEDS ORDERED: LIDOCAINE 1% INJ 10MG/ML (20 ML MDV) ONE ×2 (08:50)
[2020-02-17] MEDS ORDERED: MIDAZOLAM 2 MG/2 ML VIAL ONE (08:50)
[2020-02-17] MEDS ORDERED: IOPAMIDOL-370 50ML BTL INJ ONE (09:12)
[2020-02-17] MEDS ORDERED: LIDOCAINE 1% INJ 10MG/ML (20 ML MDV) SQ ONE ×2 (09:33→09:51)
[2020-02-17] MEDS: IOPAMIDOL-370 50ML BTL MISCELLANE ONE ×2 (10:15→10:30)
[2020-02-17 10:58] LABS: Basophils # (A) 0.1 k/uL (0-0.2); Basophils % (A) 1 %; Eosinophils # (A) 0.3 k/uL (0-0.7); Eosinophils % (A) 3 %; HCT 49.5 % (39.0-53.0); HGB 15.8 gm/dL (13.0-17.5); Lymphocytes # (A) 1.8 k/uL (1.0-4.8); Lymphocytes % (A) 15 %; MCH 28.6 pg (25.0-35.0); MCHC 31.8 g/dL (31.0-37.0); MCV 89.9 fL (80.0-100.0); Mean Platelet Volume 9.9; Monocytes # (A) 0.9 k/uL (0-1.0); Monocytes % (A) 7 %; Neutrophils # (A) 8.8 k/uL (1.3-7.7); Neutrophils % (A) 73 %; Platelet Count 301 k/uL (150-450); RDW 13.9 % (11.5-15.5); WBC 12.2 k/uL (3.8-10.6)
[2020-02-17 11:01] LABS: Calcium 9.7 mg/dL (8.4-10.2); Potassium 4.1 mmol/L (3.5-5.1)
--- NOTE | 2020-02-17 12:24 | P.PCN ---
Preoperative Diagnosis: Diagnosis Severe nonischemic cardio myopathy Systolic heart failure class 2-3 Severe LV dysfunction LV systolic function 30% Bradycardia Left bundle branch block, QRS width 194 ms Paroxysmal atrial fibrillation Procedure Biventricular ICD implant, Medtronic, successful, screw-in Medtronic LV lead LV lead placed in the middle cardiac vein and via this vein into the lateral vein, excellent stability This is an extended procedure on account of a very enlarged dilated Chris sinus body The anterior lateral vein was accessed with the lead would loop into the body of the coronary sinus resulting in a pullback from LV vein This lead was then placed in the lateral vein Subselective catheters were used access this vein The lead was placed in a very stable position but upon withdrawal of the sheath the lead would loop into the coronary sinus body and backout of the LV vein Another supple selected catheter was used to access the middle cardiac vein and via the middle cardiac vein the lateral vein was accessed It took multiple attempts at different locations in different positions to finally achieve a stable LV lead position with a screw-in lead At the end of the procedure excellent stability and excellent position, lateral position on the LV ICD lead was placed in the RV septum, screw-in Right atrial lead in the right atrial appendage, screw-in Bi V pacing with an LV offset of 40 ms This device does not have adaptive TWISTING FRAME OPERATOR feature
[2020-02-17] MEDS ORDERED: HYDROcodone/APAP 5-325MG 1 EACH TAB PO PRN (12:29)
[2020-02-17] MEDS ORDERED: ACETAMINOPHEN TAB 325 MG TAB PO PRN (12:29)
[2020-02-17] MEDS ORDERED: ACETAMINOPHEN IV (For NPO) 1,000 MG in EMPTY BAG 1 BAG IVPB ONE (12:29)
[2020-02-17] MEDS ORDERED: METOPROLOL SUCCINATE (ER) 25 MG TAB.ER.24H PO SCH (12:30)
[2020-02-17] MEDS ORDERED: METOPROLOL SUCCINATE (ER) 100 MG TAB.ER.24H PO SCH (12:30)
[2020-02-17] MEDS ORDERED: SPIRONOLACTONE 25 MG TAB PO SCH (12:30)
--- NOTE | 2020-02-17 12:58 | XR ---
EXAMINATION TYPE: XR chest 1V portable DATE OF EXAM: 02/17/2020 COMPARISON: R chest x-ray 04/21/2019 HISTORY: Lead placement check TECHNIQUE: Single frontal view of the chest is obtained. FINDINGS: There is been interval placement of a lead within the coronary sinus, right atrium and rig ht ventricle. No evident pneumothorax. Persistent elevation of right hemidiaphragm noted. Generators present in the left pectoral region. Heart size is stable and enlarged. Technique is somewhat apical lordotic and rotated however. Bones are unchanged. Aorta is dense. IMPRESSION: No evident complication status post lead placement.
[2020-02-17 14:26] VITALS: RESP 18
[2020-02-17] MEDS: APIXABAN 2.5 MG TABLET PO SCH (19:49)
[2020-02-17] MEDS: metFORMIN 500 MG TAB PO SCH (19:50)
[2020-02-17] MEDS ORDERED: LATANOPROST 0.005% OPHTH DROPS 2.5 ML BTL BOTH EYES SCH (21:00)
[2020-02-17] MEDS ORDERED: ATORVASTATIN 80 MG TAB PO SCH (21:00)
--- NOTE | 2020-02-17 23:33 | PCN ---
PROCEDURE NOTE This is an 84-year-old male patient with severe nonischemic cardiomyopathy, left bundle branch block, QRS width more than 194 milliseconds, congestive heart failure, class 2 to 3. He also has sick sinus syndrome with bradycardia, paroxysmal atrial fibrillation and one-vessel coronary artery disease that does not explain the extent of his cardiomyopathy. The patient was brought to the EP lab in a fasting state. Written informed consent was obtained prior to the procedure. The left shoulder area was prepped and draped as per protocol. Lidocaine 1% was used for local anesthesia. A left upper extremity venogram was performed before prepping the procedure and this showed that this was a patent axillary and subclavian vein. The left axillary vein was accessed at 3 points, and via appropriately-sized introducer sheaths 3 leads were positioned in the right heart. The atrial lead was a screw-in lead positioned in the right atrial appendage. This was a Medtronic model #5076, 52 cm in length, and serial #[id number]. P-waves were 2.5 mV, pacing impedance 687 ohms, pacing threshold 0.8 V at 0.5 milliseconds. Ten-volt test was negative. The RV lead was a single coil Medtronic lead model #6935M, 62 cm in length and serial number #[id number]. This was positioned in the mid RV septum. R-waves 6 mV, pacing impedance 726 ohms, pacing threshold 0.5 V at 0.5 milliseconds. Ten-volt test was negative. The coronary sinus was then accessed for LV lead placement. Venography was performed. The coronary sinus body was quite large and the balloon could barely occlude it, even distally. However, it was evident that the patient had an anterolateral vein and a lateral vein. The anterolateral vein was first targeted and we were successfully able to place the LV lead in here, but as soon as the sheath was withdrawn slightly, the lead would loop into the body of the large coronary sinus, resulting in retraction of the lead from its position within the LV vein. This was attempted several times, but the lead was not stable. The lateral vein was then attempted. We had to use a subselective sheath. We were able to access this vein and perform a subselective venogram. The lead was then placed. Distally there were 2 tributaries, and both tributaries were targeted just to look for stability. However, in both situations, despite screwing in the Medtronic screw-in LV lead, the moment the sheaths were withdrawn, the lead body would loop into the large coronary sinus body, resulting in retraction of the lead and dislodgement. Therefore a new subselective sheath was used and the posterolateral and middle cardiac veins were sought. There was no posterolateral vein, but there was a large middle cardiac vein. Once this was subselected, a venogram was performed and the lead was placed. This lead, over the angioplasty wire, entered the distal portion of the lateral vein that we initially targeted. We screwed in this lead within the LV vein, but this was not stable and it would actually dislodge further into the lateral vein into the coronary sinus body. Therefore the lead was retracted back at the junction between the connection of the lateral and the middle cardiac veins at the terminal outpoint. At this point the stylet was withdrawn, the lead was screwed in, and thereafter the lead remained very stable. Thresholds were excellent. There was no diaphragmatic stimulation. R-waves 3.1 mV, pacing impedance 885 ohms, pacing threshold 1.25 V at 0.5 milliseconds. Ten- volt test was negative. The sheaths were removed. The leads were secured to the underlying pectoralis muscle and then connected to the generator (FISH BIN TENDER-D Medtronic Compia MRI quad DF-4, model #[id number], serial #[id number]. This threshold was between LV2 and LV3 poles. The patient tolerated the procedure well without any acute complications. RESULT: Successful implantation of biventricular ICD. The LV lead position was difficult on account of the very large and dilated coronary sinus body. All available veins were targeted and successfully accessed. Leads were placed in all veins successfully but would not remain stable in the lateral and the anterolateral veins. The lateral vein was then targeted antegrade to the blood flow via the middle cardiac vein. This was an extended-duration procedure on account of the challenging LV venous and coronary sinus anatomy. PROCEDURE: Left upper extremity venogram. Prior to prepping the patient, a left upper extremity venogram was performed. Fifteen milliliters of dye was injected in the left arm and the axillary vein and the subclavian veins and innominate veins were found to be patent. A large cephalic vein was noted. MMODL / IJN: [id number] /
[2020-02-18 06:32] LABS: Glucose,Whole Blood 155 mg/dL (75-99)
[2020-02-18 08:07] LABS: Glucose,Whole Blood 184 mg/dL (75-99)
[2020-02-18] MEDS ORDERED: LOSARTAN-HCTZ 50-12.5 MG 1 EACH TAB PO SCH (09:00)
[2020-02-18] MEDS ORDERED: CLOPIDOGREL 75 MG TAB PO SCH (09:00)
[2020-02-18] MEDS ORDERED: FUROSEMIDE 40 MG TAB PO SCH (09:00)
[2020-02-18] MEDS ORDERED: AMIODARONE 200 MG TAB PO SCH (09:00)
[2020-02-18] MEDS ORDERED: SPIRONOLACTONE 25 MG TAB PO SCH (09:30)
[2020-02-18] MEDS ORDERED: AMIODARONE 100 MG TAB PO SCH (09:30)
[2020-02-18] MEDS: APIXABAN 2.5 MG TABLET PO SCH (09:45)
--- NOTE | 2020-02-18 09:57 | P.DS ---
Providers Attending physician: Huang Sandra Primary care physician: [facility] Course: Patient is doing well. He is sitting up at the edge of the bed. Minimal swelling over the ICD site. Minimal soakage He denies any chest discomfort dizziness lightheadedness No JVD No lower extremity edema Breath sounds are clear no rhonchi no crackles Normal heart sounds normal S1 normal S2 Abdomen is soft Vitals are stable. Blood pressure 137/80 mmHg pulse rate in the 60s afebrile 97.7F Diagnosis Severe nonischemic cardio myopathy Systolic heart failure class 2-3 Severe LV dysfunction LV systolic function 30% Bradycardia Left bundle branch block, QRS width 194 ms Paroxysmal atrial fibrillation Single vessel coronary artery disease that that does not explain the extent of his cardiac myopathy. Patient has nonischemic cardio myopathy Status post Biventricular ICD implant, Medtronic, successful, screw-in Medtronic LV lead LV lead placed in the middle cardiac vein and via this vein into the lateral vein, excellent stability Medication changes as follows: STOP Felodipine Oral potassium Metoprolol tartrate Decrease dose Amiodarone, decreased to 100 mg by mouth daily New medications started Metoprolol succinate 100 mg by mouth daily in a.m. spironolactone 25 mg by mouth daily in a.m. Continue ELIQUIS Plavix Atorvastatin Losartan and hydrochlorothiazide Diabetes medications Plan Discharge home after completion of IV antibiotics, chest x-ray and device interrogation Follow-up Dr. Car Plan - Discharge Summary Discharge Rx Participant: No New Discharge Prescriptions: New Amiodarone [Cordarone] 100 mg PO DAILY #50 tab Spironolactone 25 mg PO DAILY #90 tablet Metoprolol Succinate [Toprol XL] 100 mg PO DAILY #90 tab Discontinued Potassium Chloride [Klor-Con 10] 10 meq PO QAM Amiodarone [Cordarone] 200 mg PO DAILY Felodipine [Felodipine ER] 5 mg PO DAILY Metoprolol Tartrate [Lopressor] 12.5 mg PO BID No Action metFORMIN HCL [Glucophage] 500 mg PO BID glipiZIDE [Glucotrol] 2.5 mg PO AC-BID Latanoprost Ophth [Xalatan 0.005%] 1 drop BOTH EYES HS Apixaban [Eliquis] 2.5 mg PO BID Furosemide [Lasix] 40 mg PO DAILY Losartan/Hydrochlorothiazide [Losartan-Hctz 100-25 mg Tab] 1 tab PO DAILY Atorvastatin [Lipitor] 80 mg PO HS #90 tab Clopidogrel [Plavix] 75 mg PO DAILY #90 tab Discharge Medication List glipiZIDE [Glucotrol] 2.5 mg PO AC-BID 03/21/19 [History] metFORMIN HCL [Glucophage] 500 mg PO BID 03/21/19 [History] Apixaban [Eliquis] 2.5 mg PO BID 04/18/19 [History] Latanoprost Ophth [Xalatan 0.005%] 1 drop BOTH EYES HS 04/18/19 [History] Furosemide [Lasix] 40 mg PO DAILY 05/22/19 [History] Losartan/Hydrochlorothiazide [Losartan-Hctz 100-25 mg Tab] 1 tab PO DAILY 05/22/19 [History] Atorvastatin [Lipitor] 80 mg PO HS #90 tab 05/24/19 [Rx] Clopidogrel [Plavix] 75 mg PO DAILY #90 tab 05/24/19 [Rx] Amiodarone [Cordarone] 100 mg PO DAILY #50 tab 02/17/20 [Rx] Metoprolol Succinate [Toprol XL] 100 mg PO DAILY #90 tab 02/17/20 [Rx] Spironolactone 25 mg PO DAILY #90 tablet 02/17/20 [Rx] Follow up Appointment(s)/Referral(s): Jad Craig MD [STAFF PHYSICIAN] - 1 Week Activity/Diet/Wound Care/Special Instructions: PATIENT EDUCATION MATERIAL Instructions following a heart rhythm device implant. 1. Keep dressing DRY for 5 DAYS. You may cover the area with Saran or Cling Wrap, prior to a shower. 2. The dressing will be removed in the Device Clinic at [facility]. Absorbable sutures were used to close the wound. 3. Avoid raising the left arm above the shoulder level. 4 week restriction 4. Avoid arm movements, like backscratching, rubbing the head, or pulling on a cord. 4 weeks restriction 5. Gentle range of motion movements of the shoulder, closest to the incision should be performed to avoid a frozen shoulder. (Pendulum exercises of the shoulder) 6. The opposite arm may be used freely. 7. Avoid driving for 7 days. 8. Avoid activities such as golfing, swimming, weed whacking, lifting more than 10 pounds weight, bowling, gymnastics and weight training/lifting. (6 weeks restriction) 9. Activities such as wood chopping with an axe, pull-ups in the gymnasium, power lifting, arc-welding, being close to home induction cooktops will always be a problem. 10. Arm sling is only a reminder not to raise the arm above the head. You do not need to keep the arm completely immobilized. Your free to move the arm and use it and for normal activities. In case of any problems, please call [facility], [place], @ [phone], Attention: Device Clinic Discharge home after device interrogation today Device clinic follow-up in 5 days Follow-up with primary seasonal package handler in 1 months/Dr. Craig as previously scheduled Discharge Disposition: HOME SELF-CARE
--- NOTE | 2020-02-18 09:59 | P.PRLE ---
RE: Thiago Montiel Dear Saud Mr. Montiel underwent by ventricular ICD implantation for management of severe nonischemic cardiomyopathy with congestive heart failure We'll maximize his heart failure medications now and hopefully this is also an improvement in his functional status Thank you for entrusting me with the care of the patient Warm regards Sincerely Huang Sandra
[2020-02-18 10:14] VITALS: BP 156/75; PULSE 57; TEMP 98.6
[2020-02-18] MEDS: metFORMIN 500 MG TAB PO SCH (10:35)
[2020-02-18] MEDS ORDERED: METOPROLOL SUCCINATE (ER) 100 MG TAB.ER.24H PO SCH (21:00)
== END 2020-02-18 13:53 | disposition home or self-care (01) ==
LOC: CATHEP 07:45 → 3NCARDOBS 12:09 → CATHEP 02-18 13:53
PROVIDERS: ATTEND Internal Medicine Clinical Cardiac Electrophysiology
DX: I42.8 Other cardiomyopathies (principal); I49.5 Sick sinus syndrome; I11.0 Hypertensive heart disease with heart failure; I50.22 Chronic systolic (congestive) heart failure; I44.7 Left bundle-branch block, unspecified; I25.10 Atherosclerotic heart disease of native coronary artery without angina pectoris; I48.0 Paroxysmal atrial fibrillation; G47.33 Obstructive sleep apnea (adult) (pediatric); E11.9 Type 2 diabetes mellitus without complications; Z88.8 Allergy status to other drugs, medicaments and biological substances; Z79.01 Long term (current) use of anticoagulants; Z79.02 Long term (current) use of antithrombotics/antiplatelets; Z79.84 Long term (current) use of oral hypoglycemic drugs; Z79.899 Other long term (current) drug therapy; Z90.49 Acquired absence of other specified parts of digestive tract; Z95.5 Presence of coronary angioplasty implant and graft; Z99.89 Dependence on other enabling machines and devices; Z98.890 Other specified postprocedural states
CPT/HCPCS: 33225; 33249; 80048; 85025; 71045; C1769 ×6; C1892; C1730; C1898; C1895; C1882; J0690 ×2; J2001; J0131; Q9967

== ENCOUNTER → 2020-05-01 | Outpatient (CLI) | payer MEDICARE, BC ==
[2020-05-02 01:41] LABS: African American GFR (CKD) 72.1 (60.0-200.0); Anion Gap 10.1 mmol/L (4.00-12.00); BUN/Creat Ratio 21.82 Ratio (12.00-20.00); Calcium 10.2 mg/dL (8.7-10.3); Carbon Dioxide 26.9 mmol/L (21.6-31.8); Non-African American GFR(CKD) 62.2 (60.0-200.0); Potassium 4.8 mmol/L (3.5-5.5)
== END | disposition home or self-care (01) ==
LOC: LABWHC1 15:12
PROVIDERS: ATTEND Internal Medicine Cardiovascular Disease
DX: I11.0 Hypertensive heart disease with heart failure (principal)
CPT/HCPCS: 36415; 80048

== ENCOUNTER → 2020-08-31 | Outpatient (CLI) | payer MEDICARE, BC ==
--- NOTE | 2020-08-31 11:53 | CT ---
EXAMINATION TYPE: CT brain wo con DATE OF EXAM: 08/31/2020 HISTORY: Left hand tremors. CT DLP: 1131.3 mGycm. Automated Exposure Control for Dose Reduction was Utilized. TECHNIQUE: CT scan of the head is performed without contrast. COMPARISON: None. FINDINGS: There is no acute intracranial hemorrhage or midline shift identified. There is mild to m oderate diffuse ventricular and sulcal prominence consistent with diffuse age-related cerebral atroph y. There is mild to moderate low-attenuation in the periventricular white matter consistent with chr onic small vessel ischemic change. Scleral buckle on the right is present. Suspect mucous retention c yst or polyp in the posterior right ethmoid sinus. IMPRESSION: No acute intracranial hemorrhage or midline shift. There is mild to moderate diffuse ce rebral atrophy and chronic small vessel ischemic change noted.
== END ==
LOC: RADCTMAIN 11:22
PROVIDERS: ATTEND Psychiatry & Neurology Neurology
DX: G31.89 Other specified degenerative diseases of nervous system (principal); I67.82 Cerebral ischemia
CPT/HCPCS: 70450

== ENCOUNTER 2020-10-12 19:13 | Inpatient (IN) | payer MEDICARE, BC ==
--- NOTE | 2020-10-12 20:17 | XR ---
EXAMINATION TYPE: XR chest 2V DATE OF EXAM: 10/12/2020 COMPARISON: NONE HISTORY: Weakness. Pneumonia. TECHNIQUE: 2 views FINDINGS: Heart is normal. There is some patchy infiltrate in the left lower lobe. There is left axil david pacemaker. There are no hilar masses. Costophrenic angles are clear. The bony thorax is intact. IMPRESSION: There is some mild airspace pneumonia left lower lobe which is new compared to old exam. Normal heart. No heart failure.
[2020-10-12] MEDS ORDERED: SODIUM CHLORIDE 0.9% 500 ML 500 ML IV ONE (20:18)
[2020-10-12 20:54] LABS: Basophils # (A) 0.1 k/uL (0-0.2); Basophils % (A) 1 %; Eosinophils # (A) 0.2 k/uL (0-0.7); Eosinophils % (A) 1 %; HCT 52.7 % (39.0-53.0); HGB 17.1 gm/dL (13.0-17.5); Lymphocytes % (A) 5 %; MCH 28.3 pg (25.0-35.0); MCHC 32.4 g/dL (31.0-37.0); MCV 87.3 fL (80.0-100.0); Mean Platelet Volume 8.9; Monocytes % (A) 5 %; Neutrophils # (A) 17.1 k/uL (1.3-7.7); Neutrophils % (A) 88 %; Platelet Count 423 k/uL (150-450); RBC 6.03 m/uL (4.30-5.90); RDW 13.7 % (11.5-15.5); WBC 19.5 k/uL (3.8-10.6)
[2020-10-12 20:59] LABS: Albumin 4.1 g/dL (3.5-5.0); C Reactive Protein 0.7 mg/dL (<1.0); Calcium 10.2 mg/dL (8.4-10.2); Magnesium 2.1 mg/dL (1.6-2.3); Potassium 4.9 mmol/L (3.5-5.1); Total Bilirubin 1.1 mg/dL (0.2-1.3); Total Protein 7.1 g/dL (6.3-8.2)
[2020-10-12 21:15] LABS: D-Dimer 0.19 mg/L FEU (<0.60); Partial Thromboplastin Time 22.1 sec (22.0-30.0); Prothrombin Time 10.8 sec (9.0-12.0)
[2020-10-12 22:15] LABS: Appearance,Urine Clear (Clear); Bilirubin,Urine Negative (Negative); Blood,Urine Negative (Negative); Color,Urine Yellow; Glucose,Urine (UA) Negative (Negative); Ketones,Urine 1+ (Negative); Leukocyte Esterase,Urine Negative (Negative); Nitrite,Urine Negative (Negative); Protein,Urine Trace (Negative); Urobilinogen,Urine <2.0 mg/dL (<2.0)
--- NOTE | 2020-10-12 22:32 | ED ---
General Adult HPI - General Chief complaint: Weakness Stated complaint: Covid+, pain, SOB Time Seen by Provider: 10/12/20 20:14 Source: patient, family Mode of arrival: wheelchair Limitations: no limitations - History of Present Illness Initial comments: 84-year-old male patient presents to the emergency department today for evaluation of increased weakness. States he was diagnosed with COVID-19 on 10/04. States he did receive bamlanivimab and has been taking steroids. States he continues to have cough and some mild shortness of breath. States he has no appetite has not been eating or drinking. States he was unable to walk today due to weakness in his legs. His son reports that he is increasingly depressed as well. Patient denies any suicidal or homicidal ideation. Patient denies any recent rash, fever, chest pain, abdominal pain, nausea, vomiting, diarrhea, constipation, back pain, numbness, tingling, dizziness, hematuria, dysuria, uri nary urgency, urinary frequency, headache, visual changes, or any other complaints. - Related Data Home Medications Medication Instructions Recorded Confirmed glipiZIDE [Glucotrol] 2.5 mg PO AC-BID 03/21/19 02/17/20 metFORMIN HCL [Glucophage] 500 mg PO BID 03/21/19 02/17/20 Apixaban [Eliquis] 2.5 mg PO BID 04/18/19 02/17/20 Latanoprost Ophth [Xalatan 0.005%] 1 drop BOTH EYES HS 04/18/19 02/17/20 Furosemide [Lasix] 40 mg PO DAILY 05/22/19 02/17/20 Losartan/Hydrochlorothiazide 1 tab PO DAILY 05/22/19 02/17/20 [Losartan-Hctz 100-25 mg Tab] Previous Rx's Medication Instructions Recorded Atorvastatin [Lipitor] 80 mg PO HS #90 tab 05/24/19 Clopidogrel [Plavix] 75 mg PO DAILY #90 tab 05/24/19 Amiodarone [Cordarone] 100 mg PO DAILY #50 tab 02/17/20 Metoprolol Succinate [Toprol XL] 100 mg PO DAILY #90 tab 02/17/20 Spironolactone 25 mg PO DAILY #90 tablet 02/17/20 Allergies Allergy/AdvReac Type Severity Reaction Status Date / Time lisinopril [From Zestril] AdvReac Unknown Cough Verified 02/17/20 08:12 Review of Systems ROS Statement: Those systems with pertinent positive or pertinent negative responses have been documented in the HPI. ROS Other: All systems not noted in ROS Statement are negative. 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 Pacemaker, Past Anesthesia/Blood Transfusion Reactions: No Reported Reaction Additional Past Anesthesia/Blood Transfusion Reaction / Comment(s): PT ADOPTED. Past Psychological History: Anxiety, Depression Smoking Status: Never smoker Past Alcohol Use History: Rare Past Drug Use History: None Reported - Past Family History Family History Unknown: Yes Family Medical History: No Reported History Additional Family Medical History / Comment(s): PT ADOPTED. General Exam Limitations: no limitations General appearance: alert, in no apparent distress, other (This is a well- developed, well-nourished adult male patient in no acute distress.) Eye exam: Present: normal appearance, PERRL, EOMI. Absent: scleral icterus, conjunctival injection, periorbital swelling ENT exam: Present: normal exam, normal oropharynx, mucous membranes moist Respiratory exam: Present: normal lung sounds bilaterally. Absent: respiratory distress, wheezes, rales, rhonchi, stridor Cardiovascular Exam: Present: regular rate, normal rhythm, normal heart sounds. Absent: systolic murmur, diastolic murmur, rubs, gallop, clicks GI/Abdominal exam: Present: soft, normal bowel sounds. Absent: distended, tenderness, guarding, rebound, rigid Extremities exam: Present: normal inspection, full ROM, normal capillary refill, other (Skin to the lower trauma is is pink, warm, dry. Cap refill less than 3 seconds). Absent: tenderness, pedal edema, joint swelling, calf tenderness Neurological exam: Present: alert, oriented X3, CN II-XII intact Expanded Speech: Present: fluid speech Motor strength exam: RUE: 5, LUE: 5, RLE: 3, LLE: 3 Psychiatric exam: Present: normal affect, normal mood Skin exam: Present: warm, dry, intact, normal color. Absent: rash Course Vital Signs 10/12/20 19:26 Temperature 97.9 F Pulse Rate 65 Respiratory 18 Rate Blood Pressure 101/63 O2 Sat by Pulse 95 Oximetry EKG Findings - EKG Comments: EKG Findings:: EKG obtained at 2021 shows a chill paced rhythm with a rate of 60 , AK interval 100, QRS duration 144, QTC 474, QTC 474. Medical Decision Making - Medical Decision Making 84-year-old male patient presents to the emergency department today for evaluation of increased weakness, inability to walk today due to his legs giving out. Physical examination is unremarkable. He was recently diagnosed with COVID-19 did receive bamlanivimab and dexamethasone. Labs reviewed and did reveal elevated white blood cell count at 19,000. Chest x-ray did reveal left lower lobe infiltrate consistent with pneumonia. D-dimer is negative. CRP is negative. LDH is mildly elevated. Urinalysis shows no evidence for infection. We will treat with antibiotics for possibility of bacterial pneumonia, waiting pro calcitonin level. Patient will be admitted to the hospital for further evaluation and treatment. Case is discussed with my attending Dr. Torres. - Lab Data Result diagrams: 10/12/20 20:36 10/12/20 20:36 Lab Results 10/12/20 10/12/20 10/12/20 Range/Units 20:36 20:36 20:36 WBC 19.5 H (3.8-10.6) k/uL RBC 6.03 H (4.30-5.90) m/uL Hgb 17.1 (13.0-17.5) gm/dL Hct 52.7 (39.0-53.0) % MCV 87.3 (80.0-100.0) fL MCH 28.3 (25.0-35.0) pg MCHC 32.4 (31.0-37.0) g/dL RDW 13.7 (11.5-15.5) % Plt Count 423 (150-450) k/uL MPV 8.9 Neutrophils % 88 % Lymphocytes % 5 % Monocytes % 5 % Eosinophils % 1 % Basophils % 1 % Neutrophils # 17.1 H (1.3-7.7) k/uL Lymphocytes # 1.0 (1.0-4.8) k/uL Monocytes # 1.0 (0-1.0) k/uL Eosinophils # 0.2 (0-0.7) k/uL Basophils # 0.1 (0-0.2) k/uL PT 10.8 (9.0-12.0) sec INR 1.0 (<1.2) APTT 22.1 (22.0-30.0) sec D-Dimer 0.19 (<0.60) mg/L FEU Sodium 134 L (137-145) mmol/L Potassium 4.9 (3.5-5.1) mmol/L Chloride 101 (98-107) mmol/L Carbon Dioxide 23 (22-30) mmol/L Anion Gap 10 mmol/L BUN 57 H (9-20) mg/dL Creatinine 1.06 (0.66-1.25) mg/dL Est GFR (CKD-EPI)AfAm 76 (>60 ml/min/1.73 sqM) Est GFR (CKD-EPI)NonAf 66 (>60 ml/min/1.73 sqM) Glucose 253 H (74-99) mg/dL Calcium 10.2 (8.4-10.2) mg/dL Magnesium 2.1 (1.6-2.3) mg/dL Total Bilirubin 1.1 (0.2-1.3) mg/dL AST 35 (17-59) U/L ALT 33 (4-49) U/L Alkaline Phosphatase 87 (38-126) U/L Lactate Dehydrogenase 958 H (313-618) U/L Troponin I (0.000-0.034) ng/mL C-Reactive Protein 0.7 (<1.0) mg/dL Total Protein 7.1 (6.3-8.2) g/dL Albumin 4.1 (3.5-5.0) g/dL Urine Color Urine Appearance (Clear) Urine pH (5.0-8.0) Ur Specific [place] (1.001-1.035) Urine Protein (Negative) Urine Glucose (UA) (Negative) Urine Ketones (Negative) Urine Blood (Negative) Urine Nitrite (Negative) Urine Bilirubin (Negative) Urine Urobilinogen (<2.0) mg/dL Ur Leukocyte Esterase (Negative) 10/12/20 10/12/20 Range/Units 20:36 20:36 WBC (3.8-10.6) k/uL RBC (4.30-5.90) m/uL Hgb (13.0-17.5) gm/dL Hct (39.0-53.0) % MCV (80.0-100.0) fL MCH (25.0-35.0) pg MCHC (31.0-37.0) g/dL RDW (11.5-15.5) % Plt Count (150-450) k/uL MPV Neutrophils % % Lymphocytes % % Monocytes % % Eosinophils % % Basophils % % Neutrophils # (1.3-7.7) k/uL Lymphocytes # (1.0-4.8) k/uL Monocytes # (0-1.0) k/uL Eosinophils # (0-0.7) k/uL Basophils # (0-0.2) k/uL PT (9.0-12.0) sec INR (<1.2) APTT (22.0-30.0) sec D-Dimer (<0.60) mg/L FEU Sodium (137-145) mmol/L Potassium (3.5-5.1) mmol/L Chloride (98-107) mmol/L Carbon Dioxide (22-30) mmol/L Anion Gap mmol/L BUN (9-20) mg/dL Creatinine (0.66-1.25) mg/dL Est GFR (CKD-EPI)AfAm (>60 ml/min/1.73 sqM) Est GFR (CKD-EPI)NonAf (>60 ml/min/1.73 sqM) Glucose (74-99) mg/dL Calcium (8.4-10.2) mg/dL Magnesium (1.6-2.3) mg/dL Total Bilirubin (0.2-1.3) mg/dL AST (17-59) U/L ALT (4-49) U/L Alkaline Phosphatase (38-126) U/L Lactate Dehydrogenase (313-618) U/L Troponin I <0.012 (0.000-0.034) ng/mL C-Reactive Protein (<1.0) mg/dL Total Protein (6.3-8.2) g/dL Albumin (3.5-5.0) g/dL Urine Color Yellow Urine Appearance Clear (Clear) Urine pH 5.0 (5.0-8.0) Ur Specific [place] 1.030 (1.001-1.035) Urine Protein Trace H (Negative) Urine Glucose (UA) Negative (Negative) Urine Ketones 1+ H (Negative) Urine Blood Negative (Negative) Urine Nitrite Negative (Negative) Urine Bilirubin Negative (Negative) Urine Urobilinogen <2.0 (<2.0) mg/dL Ur Leukocyte Esterase Negative (Negative) - Radiology Data Radiology results: report reviewed, image reviewed Two-view x-ray of the chest is obtained. Report was reviewed in its entirety. Impression by Dr. Murry shows mild airspace pneumonia left lower lobe which is new compared to old exam. Normal heart. No heart failure. Disposition Clinical Impression: Pneumonia, Weakness Disposition: ADMITTED IP TO THIS [facility] Condition: Serious Decision to Admit Reason: Admit from EC Decision Date: 10/12/20 Decision Time: 22:50
[2020-10-12] MEDS ORDERED: PIPERACILLIN-TAZOBACTAM 3.375 GM in SODIUM CHLORIDE 0.9% 100 ML IVPB STA (22:42)
[2020-10-12] MEDS ORDERED: AZITHROMYCIN 500 MG in SODIUM CHLORIDE 0.9% 250 ML IVPB STA (22:47)
[2020-10-12] MEDS ORDERED: NALOXONE 0.4 MG/ML 1 ML VIAL IV PRN (22:48)
[2020-10-13] MEDS ORDERED: PIPERACILLIN-TAZOBACTAM 3.375 GM in SODIUM CHLORIDE 0.9% 100 ML IVPB SCH ×2
--- NOTE | 2020-10-13 02:23 | P.HPIM ---
History of Present Illness H&P Date: 10/12/20 The patient is an 84-year-old male with a PMH of A. yessy on Eliquis, severe systolic CHF, permanent pacemaker, type II DM, and hypertension who presented to the emergency room with complaints of lethargy. The patient was recently diagnosed with COVID-19 10 days ago and had received Bamlanivimab and Decadron and was subsequently discharged home. The patient notes that she has felt increasingly weak at home and that he is unable to partake in his ADLs. He also reports parotic feelings of depression but denied any suicidal ideation. He denied any additional complaints. Denied chest pain, shortness of breath, nausea, vomiting, diarrhea, abdominal pain, dizziness. Notes that his appetite has been improving over the past 1-2 days but he is still not eating or drinking enough. Chest x-ray in the emergency room revealed mild airspace pneumonia left lower lobe new from prior exam. EKG revealed a paced rhythm at 60 bpm. Laboratory evaluation was remarkable for WBC count 19.5, BUN 57, glucose 253, LDH 258. Review of Systems Pertinent positives and negatives as discussed in HPI, a complete review of systems was performed and all other systems are negative. 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 Pacemaker, Past Anesthesia/Blood Transfusion Reactions: No Reported Reaction Additional Past Anesthesia/Blood Transfusion Reaction / Comment(s): PT ADOPTED. Past Psychological History: Anxiety, Depression Smoking Status: Never smoker Past Alcohol Use History: Rare Past Drug Use History: None Reported - Past Family History Family History Unknown: Yes Family Medical History: No Reported History Additional Family Medical History / Comment(s): PT ADOPTED. Medications and Allergies Home Medications Medication Instructions Recorded Confirmed Type glipiZIDE [Glucotrol] 2.5 mg PO AC-BID 03/21/19 10/12/20 History metFORMIN HCL [Glucophage] 1,000 mg PO BID 03/21/19 10/12/20 History Latanoprost Ophth [Xalatan 0.005%] 1 drop BOTH EYES HS 04/18/19 10/12/20 History Losartan/Hydrochlorothiazide 1 tab PO DAILY 05/22/19 10/12/20 History [Losartan-Hctz 100-25 mg Tab] Atorvastatin [Lipitor] 80 mg PO HS #90 tab 05/24/19 10/12/20 Rx Spironolactone 25 mg PO DAILY #90 tablet 02/17/20 10/12/20 Rx Albuterol Inhaler [Ventolin Hfa 1 puff INHALATION RT-Q6H PRN 10/12/20 10/12/20 History Inhaler] Apixaban [Eliquis] 2.5 mg PO BID 10/12/20 10/12/20 History Aspirin EC [Ecotrin Low Dose] 81 mg PO DAILY 10/12/20 10/12/20 History Potassium Chloride ER [K-Dur 10] 10 meq PO DAILY 10/12/20 10/12/20 History Propranolol HCl [Inderal Xl] 80 mg PO HS 10/12/20 10/12/20 History Allergies Allergy/AdvReac Type Severity Reaction Status Date / Time lisinopril [From Zestril] AdvReac Unknown Cough Verified 10/12/20 23:42 Physical Exam Vitals: Vital Signs Temp Pulse Resp BP Pulse Ox 10/12/20 19:26 97.9 F 65 18 101/63 95 Intake and Output 10/12/20 10/12/20 10/13/20 14:59 22:59 06:59 Other: Weight 108.862 kg General: non toxic, no distress, appears at stated age, overweight Derm: no unusual rashes/lesions no unusual ecchymoses, warm, dry Head: atraumatic, normocephalic, symmetric Eyes: EOMI, no lid lag, anicteric sclera, pupils equal round reactive to light ENT: Nose and ears atraumatic, no thrush, no pharyngeal erythema Neck: No thyromegaly, no cervical lymphadenopathy, trachea midline, supple Mouth: no lip lesion, mucus membranes moist Cardiovascular: S1S2 reg, no murmur, positive posterior tibial pulse bilateral, no edema, capillary refill less than 2 seconds Lungs: Mild left basilar rhonchi, no wheezing appreciated, no accessory muscle use Abdominal: soft, nontender to palpation, no guarding, no appreciable organomegaly, normal bowel sounds Ext: no gross muscle atrophy, muscle strength 4 out of 5 in all 4 extremities grossly, no contractures, Neuro: CN II-XI grossly intact, light touch intact all 4 extremities, finger to nose within normal limits, Psych: Alert, oriented, appropriate affect Results CBC & Chem 7: 10/12/20 20:36 10/12/20 20:36 Labs: Abnormal Lab Results - Last 24 Hours (Table) 10/12/20 10/12/20 10/12/20 Range/Units 20:36 20:36 20:36 WBC 19.5 H (3.8-10.6) k/uL RBC 6.03 H (4.30-5.90) m/uL Neutrophils # 17.1 H (1.3-7.7) k/uL Sodium 134 L (137-145) mmol/L BUN 57 H (9-20) mg/dL Glucose 253 H (74-99) mg/dL Lactate Dehydrogenase 958 H (313-618) U/L Urine Protein Trace H (Negative) Urine Ketones 1+ H (Negative) Assessment and Plan Plan: New lung infiltrate, possible superimposed bacterial pneumonia -Follow-up pro-calcitonin levels -Continue with azithromycin and ceftriaxone for now Prerenal azotemia -Likely secondary to dehydration with poor oral intake -Judicious use of IV fluids in setting of significant CHF history -Hold off on home diuretics for now Chronic conditions: A. fib, type II DM, hypertension, hyperlipidemia -Hold off on home diuretics at this time -Continue with losartan 100 mg daily -Check A1c -Hold oral hypoglycemics -Lispro insulin sliding scale with blood glucose monitoring DVT prophylaxis -Eliquis The patient is admitted with an anticipated greater than 2 midnight stay for evaluation of pneumonia CODE STATUS: Full Code Discussed with: Patient Anticipated discharge date: 2-[address]: Home A total of 40 minutes was spent on the care of this complex patient more than 50% of the time was spent in counseling and care coordination.
[2020-10-13 02:48] LABS: Glucose,Whole Blood 243 mg/dL (75-99)
[2020-10-13 08:19] LABS: Glucose,Whole Blood 199 mg/dL (75-99)
[2020-10-13] MEDS: INSULIN ASPART (NovoLOG) 100 UNIT/ML VIAL SQ SCH ×4 (08:38→21:21)
[2020-10-13] MEDS: ASPIRIN 81 MG PO SCH (08:40)
[2020-10-13] MEDS: APIXABAN 2.5 MG TABLET PO SCH ×2 (08:46→21:21)
[2020-10-13] MEDS ORDERED: LOSARTAN 50 MG TAB PO SCH (09:00)
[2020-10-13 10:06] LABS: HCT 46.3 % (39.6-50.0); HGB 15.1 g/dL (13.0-17.0); MCH 28.6 pg (27.0-32.0); MCHC 32.6 g/dL (32.0-37.0); MCV 87.7 fL (80.0-97.0); Mean Platelet Volume 10.8 fL (9.5-12.2); Platelet Count 338 X 10*3/uL (140-440); RBC 5.28 X 10*6/uL (4.40-5.60); RDW 13.8 % (11.5-14.5); WBC 17.01 X 10*3/uL (4.50-10.00)
[2020-10-13 10:42] LABS: African American GFR (CKD) 72.1 (60.0-200.0); Anion Gap 8.7 mmol/L (4.00-12.00); BUN/Creat Ratio 44.55 Ratio (12.00-20.00); Calcium 9.2 mg/dL (8.7-10.3); Carbon Dioxide 25.3 mmol/L (21.6-31.8); Non-African American GFR(CKD) 62.2 (60.0-200.0); Potassium 4.9 mmol/L (3.5-5.5)
[2020-10-13] MEDS ORDERED: HYDROcodone/APAP 5-325MG 1 EACH TAB PO PRN (11:24)
[2020-10-13 11:42] LABS: Glucose,Whole Blood 232 mg/dL (75-99)
[2020-10-13 16:13] LABS: Hemoglobin A1C 9.8 % (4.0-6.0)
[2020-10-13 16:32] LABS: Glucose,Whole Blood 349 mg/dL (75-99)
--- NOTE | 2020-10-13 16:36 | P.PN ---
Subjective Progress Note Date: 10/13/20 Pt reporting pain in his legs bilaterally, also generalized weakness. Objective - Vital Signs Vital signs: Vital Signs Temp 97.7 F 10/13/20 16:30 Pulse 54 L 10/13/20 16:30 Resp 20 10/13/20 16:30 BP 121/65 10/13/20 16:30 Pulse Ox 94 L 10/13/20 16:30 Intake & Output 10/12/20 10/13/20 10/13/20 18:59 06:59 18:59 Weight 108.862 kg 108.862 kg - Exam Gen: awake, alert HEENT: normocephalic, atraumatic, good hearing acuity, moist mucous membranes Resp: good air exchange, breathing comfortably with no accessory muscle use, clear to auscultation bilaterally without wheezes CVS: good distal perfusion x 4, regular rate and rhythm without murmurs GI: soft, NTTP, ND : no SPT, no CVAT, sandhu catheter not present MSK: no pitting edema, no clubbing Neuro: non-focal, moving all extremities Psych: cooperative, euthymic mood - Labs CBC & Chem 7: 10/13/20 05:18 10/13/20 05:18 Labs: Abnormal Lab Results - Last 24 Hours (Table) 10/12/20 10/12/20 10/12/20 Range/Units 20:36 20:36 20:36 WBC 19.5 H (3.8-10.6) k/uL RBC 6.03 H (4.30-5.90) m/uL Neutrophils # 17.1 H (1.3-7.7) k/uL Sodium 134 L (137-145) mmol/L BUN 57 H (9-20) mg/dL BUN/Creatinine Ratio (12.00-20.00) Ratio Glucose 253 H (74-99) mg/dL POC Glucose (mg/dL) (75-99) mg/dL Hemoglobin A1c (4.0-6.0) % Lactate Dehydrogenase 958 H (313-618) U/L Urine Protein Trace H (Negative) Urine Ketones 1+ H (Negative) SARS-CoV-2 (PCR) (Not Detectd) 10/12/20 10/13/20 10/13/20 Range/Units 23:05 02:46 05:18 WBC 17.01 H (3.8-10.6) k/uL RBC (4.30-5.90) m/uL Neutrophils # (1.3-7.7) k/uL Sodium (137-145) mmol/L BUN (9-20) mg/dL BUN/Creatinine Ratio (12.00-20.00) Ratio Glucose (74-99) mg/dL POC Glucose (mg/dL) 243 H (75-99) mg/dL Hemoglobin A1c (4.0-6.0) % Lactate Dehydrogenase (313-618) U/L Urine Protein (Negative) Urine Ketones (Negative) SARS-CoV-2 (PCR) Detected A (Not Detectd) 10/13/20 10/13/20 10/13/20 Range/Units 05:18 05:18 07:55 WBC (3.8-10.6) k/uL RBC (4.30-5.90) m/uL Neutrophils # (1.3-7.7) k/uL Sodium (137-145) mmol/L BUN 49.0 H (9-20) mg/dL BUN/Creatinine Ratio 44.55 H (12.00-20.00) Ratio Glucose 226 H (74-99) mg/dL POC Glucose (mg/dL) 199 H (75-99) mg/dL Hemoglobin A1c 9.8 H (4.0-6.0) % Lactate Dehydrogenase (313-618) U/L Urine Protein (Negative) Urine Ketones (Negative) SARS-CoV-2 (PCR) (Not Detectd) 10/13/20 10/13/20 Range/Units 11:40 16:31 WBC (3.8-10.6) k/uL RBC (4.30-5.90) m/uL Neutrophils # (1.3-7.7) k/uL Sodium (137-145) mmol/L BUN (9-20) mg/dL BUN/Creatinine Ratio (12.00-20.00) Ratio Glucose (74-99) mg/dL POC Glucose (mg/dL) 232 H 349 H (75-99) mg/dL Hemoglobin A1c (4.0-6.0) % Lactate Dehydrogenase (313-618) U/L Urine Protein (Negative) Urine Ketones (Negative) SARS-CoV-2 (PCR) (Not Detectd) Assessment and Plan Assessment: New lung infiltrate, possible superimposed bacterial pneumonia -Follow-up pro-calcitonin levels = 0.09 -Continue with azithromycin and ceftriaxone for now -CT Chest to r/o PE Prerenal azotemia -Likely secondary to dehydration with poor oral intake -Judicious use of IV fluids in setting of significant CHF history -Hold off on home diuretics for now Chronic conditions: A. fib, type II DM, hypertension, hyperlipidemia -Hold off on home diuretics at this time -Continue with losartan 100 mg daily -Check A1c -Hold oral hypoglycemics -Lispro insulin sliding scale with blood glucose monitoring DVT prophylaxis -Eliquis The patient is admitted with an anticipated greater than 2 midnight stay for evaluation of pneumonia CODE STATUS: Full Code Discussed with: Patient Anticipated discharge date: 2-[address]: Home
--- NOTE | 2020-10-13 17:45 | CT ---
EXAMINATION TYPE: CT angio chest DATE OF EXAM: 10/13/2020 COMPARISON: None HISTORY: Fatigue and abnormal labs. CT DLP: 568.9 mGycm Automated exposure control for dose reduction was used. CONTRAST: Performed with IV Contrast, patient injected with 100 mL of Isovue 370. There are 3-D post processed images. There is some patchy interstitial and airspace infiltrates in both lungs and more severe in the left lower lobe. Heart size is fairly normal. There is no pericardial effusion. There is no pleural effusi on. Thoracic aorta is intact. There is no aneurysm or dissection. There is no mediastinal adenopathy. There are no hilar masses. There is normal contrast opacification of the pulmonary arteries. There are no filling defects. There is some spurring in the thoracic spin e. I see no bony destructive process. Sternum is intact. There is left axillary pacemaker. IMPRESSION: No evidence of pulmonary embolism. Bilateral patchy pulmonary infiltrates consistent with multifocal pneumonia.
[2020-10-13 18:05] LABS: Glucose,Whole Blood 290 mg/dL (75-99)
[2020-10-13] MEDS ORDERED: SODIUM CHLORIDE 0.9% 500 ML 500 ML IV ONE ×2 (18:50→22:38)
[2020-10-13] MEDS ORDERED: SODIUM CHLORIDE 0.9% 1,000 ML IV ONE (20:27)
[2020-10-13] MEDS ORDERED: PROPRANOLOL LA 80 MG CAP.SA.24H PO SCH (21:00)
[2020-10-13 21:01] LABS: Glucose,Whole Blood 219 mg/dL (75-99)
[2020-10-13] MEDS: LATANOPROST 0.005% OPHTH DROPS 2.5 ML BTL BOTH EYES SCH (21:20)
[2020-10-13] MEDS: ATORVASTATIN 80 MG TAB PO SCH (21:21)
[2020-10-13] MEDS: AZITHROMYCIN 500 MG in SODIUM CHLORIDE 0.9% 250 ML IVPB SCH (21:21)
--- NOTE | 2020-10-14 00:54 | XR ---
EXAM: XR Chest, 1 View CLINICAL HISTORY: ITS.REASON XR Reason: hypotension TECHNIQUE: Frontal view of the chest. COMPARISON: October 12, 2020 FINDINGS: Lungs: Persistent mild patchy left lower lobe infiltrate consistent with pneumonia. Increasing density in the right lower lateral lung may represent pneumonia or atelectasis. Pleural space: Unremarkable. No pneumothorax. Heart: The heart is mildly enlarged. Mediastinum: Unremarkable. Bones/joints: Mild to moderate osteophytosis in the lower thoracic spine. Tubes, lines and devices: There is a pacing device in the left with leads running to the right side of the heart. IMPRESSION: 1. Persistent mild patchy left lower lobe infiltrate consistent with pneumonia. 2. Increasing density in the right lower lateral lung may represent pneumonia or atelectasis.
[2020-10-14] MEDS ORDERED: SODIUM CHLORIDE 0.9% 500 ML 500 ML IV ONE (01:48)
[2020-10-14 02:10] LABS: HGB 15.4 gm/dL (13.0-17.5); MCH 29.2 pg (25.0-35.0); MCHC 33.6 g/dL (31.0-37.0); MCV 86.9 fL (80.0-100.0); Platelet Count 317 k/uL (150-450); RBC 5.29 m/uL (4.30-5.90); RDW 13.3 % (11.5-15.5); WBC 15.9 k/uL (3.8-10.6)
[2020-10-14 02:28] LABS: ALT 22 U/L (4-49); AST 23 U/L (17-59); African American GFR (CKD) >90 (>60 ml/min/1.73 sqM); Albumin 2.7 g/dL (3.5-5.0); Albumin/Globulin Ratio 1.1; Alkaline Phosphatase 59 U/L (38-126); Anion Gap 7 mmol/L; Blood Urea Nitrogen 43 mg/dL (9-20); Carbon Dioxide 24 mmol/L (22-30); Chloride 106 mmol/L (98-107); Globulin 2.5 g/dL; Glucose 146 mg/dL (74-99); Non-African American GFR(CKD) 79 (>60 ml/min/1.73 sqM); Potassium 4.1 mmol/L (3.5-5.1); Sodium 137 mmol/L (137-145); Total Bilirubin 0.8 mg/dL (0.2-1.3); Total Protein 5.2 g/dL (6.3-8.2)
[2020-10-14] MEDS ORDERED: TRIMETHOBENZAMIDE 300 MG CAP PO STA (06:10)
[2020-10-14 07:11] LABS: Glucose,Whole Blood 147 mg/dL (75-99)
[2020-10-14 07:24] LABS: Glucose,Whole Blood 156 mg/dL (75-99)
[2020-10-14] MEDS ORDERED: DEXAMETHASONE SOD PHOSPHATE 10 MG/ML 1 ML VIAL IV SCH (09:00)
[2020-10-14] MEDS: ASPIRIN 81 MG PO SCH (09:17)
[2020-10-14] MEDS: ZINC SULFATE 220 MG CAP PO SCH (09:17)
[2020-10-14] MEDS: INSULIN ASPART (NovoLOG) 100 UNIT/ML VIAL SQ SCH ×4 (09:18→21:37)
[2020-10-14] MEDS: FAMOTIDINE 20 MG TAB PO SCH ×2 (09:18→19:45)
[2020-10-14] MEDS: APIXABAN 2.5 MG TABLET PO SCH ×2 (09:18→19:45)
[2020-10-14] MEDS: ASCORBIC ACID 500 MG TAB PO SCH (09:18)
[2020-10-14] MEDS: CHOLECALCIFEROL 25 MCG (1000 IU) TABLET PO SCH (09:18)
--- NOTE | 2020-10-14 09:39 | P.CRDCN ---
History of Present Illness History of present illness: HISTORY OF PRESENTING ILLNESS This is a pleasant 84-year-old male past medical history significant for nonischemic cardiomyopathy status post AICD, coronary artery disease status post PCI to the branch 2018, chronic systolic heart failure, hypertension, dyslipidemia, paroxysmal atrial fibrillation, obstructive sleep apnea and diabetes mellitus. He follows in the office with Dr. Craig. We have been asked to see in consultation for heart failure. He presented to the hospital with symptoms of increased weakness. He was originally diagnosed with Covid on October 04 and has been taking outpatient medication since that time. He states since his original diagnosis he has felt increasingly weak, tired, achy with shortness of breath and persistent cough. He is seen and examined sitting on the edge of the bed. He states he is dying and wishes we could speed things up. There has been a consult placed for psychiatry. He denies symptoms of chest pain, dizziness or palpitations. DIAGNOSTICS EKG reveals left bundle branch block with atrial paced rhythm. Chest xray mild airspace pneumonia of the left lower lobe. CT of the chest is negative for pulmonary embolism with bilateral patchy pulmonary infiltrates consistent with multifocal pneumonia. Laboratory reviewed, WBC 15.9, hemoglobin 15.4, platelets 317, sodium 137, calcium 4.1, creatinine 0.9, and T proBNP 3570 and troponin negative 1. Current cardiac medications include aspirin 81 mg daily, atorvastatin 80 mg daily, propanolol 80 mg daily, Eliquis 2.5 mg twice a day, losartan/hydrochlorothiazide 100/25 mg daily, potassium supplementation and Aldactone 25 mg daily. Most recent echocardiogram obtained in the office November 2019 reviewed impaired LV systolic function with ejection fraction 30%, moderate concentric LVH, calcified aortic valve with trace regurgitation, mild mitral regurgitation and mild tricu spid regurgitation. REVIEW OF SYSTEMS At the time of my exam: CONSTITUTIONAL: Complains of generalized weakness. Denies fever or chills. CARDIOVASCULAR: Denies chest pain, shortness of breath, orthopnea, PND or palpitations. RESPIRATORY: Denies cough. GASTROINTESTINAL: Denies abdominal pain, diarrhea, constipation, nausea or vomiting. MUSCULOSKELETAL: Complains of lower extremity pain. NEUROLOGIC: Denies numbness, tingling, headacbe or weakness. ENDOCRINE: Denies fatigue, weight change, polydipsia or polyurina. GENITOURINARY: Denies burning, hematuria or urgency with micturation. HEMATOLOGIC: Denies history of anemia or bleeding. PHYSICAL EXAMINATION Blood pressure 102/56 heart rate 98 afebrile and maintaining oxygen saturation on room air. CONSTITUTIONAL: No apparent distress. HEENT: Head is normocephalic. Pupils are equal, round. Sclerae anicteric. Mucous membranes of the mouth are moist. No JVD. No carotid bruit. CHEST EXAMINATION: Faint bibasilar crackles, no wheezes or rhonchi. No chest wall tenderness is noted on palpation or with deep breathing. HEART EXAMINATION: Irregular rate and rhythm. S1, S2 heard. No murmurs, gallops or rub. ABDOMEN: Soft, nontender. Positive bowel sounds. EXTREMITIES: 2+ peripheral pulses, no lower extremity edema and no calf tenderness. NEUROLOGIC EXAMINATION: Patient is awake, alert and oriented x3. ASSESSMENT Covid 19 Covid pneumonia Chronic systolic heart failure Generalized weakness Leukocytosis Hypotension History of hypertension Coronary artery disease Dyslipidemia Paroxysmal atrial fibrillation and Eliquis Diabetes mellitus PLAN Clinically he is euvolemic. He was given fluids for hypotension which seem to have improved his blood pressure at this point. Cautions fluid administration given his known systolic heart failure. HOld anti-hypertensives at this time. Repeat 2D echocardiogram and doppler study to assess cardiac structure and function. Thank you kindly for this consultation. Nurse Practitioner note has been reviewed, I agree with a documented findings and plan of care. Patient was seen and examined. Past Medical History Past Medical History: Atrial Fibrillation, Coronary Artery Disease (CAD), Cancer, Heart Failure, Diabetes Mellitus, Hyperlipidemia, Hypertension, Osteoarthritis (OA), Sleep Apnea/CPAP/BIPAP Additional Past Medical History / Comment(s): Pt tested covid + on 10/04/20 at [facility] and again covid + on 10/12/20 at [facility]. Other hx: Nonischemic cardiomyopathy, bradycardia, NIDDM type II, neuropathy bilateral feet-difficulty with walking, FALL, ERIC without device use, bilateral glaucoma History of Any Multi-Drug Resistant Organisms: None Reported Past Surgical History: AICD, Appendectomy, Heart Catheterization With Stent, Pacemaker, Tonsillectomy Additional Past Surgical History / Comment(s): 02/17/20 AICD, pacer, UVPPP, skin cancer removed from L ear with skin graft, colonoscopy/benign polyp, R eye retinal re-attachment, bilateral cataract removals. Past Anesthesia/Blood Transfusion Reactions: No Reported Reaction Additional Past Anesthesia/Blood Transfusion Reaction / Comment(s): PT ADOPTED. Date of Last Stent Placement:: 2018 Type of Cardiac Device: AICD Device Placement Date:: 02/17/20 Smoking Status: Never smoker - Past Family History Family History Unknown: Yes Family Medical History: No Reported History Additional Family Medical History / Comment(s): PT ADOPTED. Medications and Allergies Home Medications Medication Instructions Recorded Confirmed Type glipiZIDE [Glucotrol] 2.5 mg PO AC-BID 03/21/19 10/12/20 History metFORMIN HCL [Glucophage] 1,000 mg PO BID 03/21/19 10/12/20 History Latanoprost Ophth [Xalatan 0.005%] 1 drop BOTH EYES HS 04/18/19 10/12/20 History Losartan/Hydrochlorothiazide 1 tab PO DAILY 05/22/19 10/12/20 History [Losartan-Hctz 100-25 mg Tab] Atorvastatin [Lipitor] 80 mg PO HS #90 tab 05/24/19 10/12/20 Rx Spironolactone 25 mg PO DAILY #90 tablet 02/17/20 10/12/20 Rx Albuterol Inhaler [Ventolin Hfa 1 puff INHALATION RT-Q6H PRN 10/12/20 10/12/20 History Inhaler] Apixaban [Eliquis] 2.5 mg PO BID 10/12/20 10/12/20 History Aspirin EC [Ecotrin Low Dose] 81 mg PO DAILY 10/12/20 10/12/20 History Potassium Chloride ER [K-Dur 10] 10 meq PO DAILY 10/12/20 10/12/20 History Propranolol HCl [Inderal Xl] 80 mg PO HS 10/12/20 10/12/20 History Allergies Allergy/AdvReac Type Severity Reaction Status Date / Time lisinopril [From Zestril] AdvReac Unknown Cough Verified 10/12/20 23:42 Physical Exam Vitals: Vital Signs Temp Pulse Resp BP BP Pulse Ox 10/14/20 09:27 102/56 10/14/20 05:15 97.7 F 98 17 108/72 96 10/14/20 02:45 89 110/69 96 10/14/20 01:45 97.6 F 79 16 94/48 94 L 10/14/20 00:30 65 110/67 95 10/13/20 23:54 109 H 87/59 10/13/20 23:20 99 90/54 10/13/20 22:30 97.4 F L 104 H 16 90/61 95 10/13/20 20:57 63 106/70 10/13/20 20:42 51 L 88/57 95 10/13/20 20:32 49 L 101/71 10/13/20 20:08 108 H 92/54 10/13/20 18:25 99/64 10/13/20 18:10 85/56 10/13/20 18:00 97.9 F 59 L 16 86/51 95 10/13/20 16:30 97.7 F 54 L 20 121/65 94 L 10/13/20 14:00 97.6 F 63 16 105/61 94 L Intake and Output 10/13/20 10/14/20 10/14/20 22:59 06:59 14:59 Intake Total 840 Output Total 300 250 Balance 540 -250 Intake: Intake, IV Titration 50 Amount cefTRIAXone 1 gm In 50 Sodium Chloride 0.9% 50 ml @ 100 mls/hr IVPB Q24HR REPLACED BY [facility] Rx#:[id number] Oral 790 Output: Urine 300 250 Other: # Voids 1 1 Weight 108.862 kg Results 10/14/20 01:56 10/14/20 01:56 Cardiac Enzymes 10/14/20 Range/Units 01:56 AST 23 (17-59) U/L CBC 10/13/20 10/14/20 Range/Units 05:18 01:56 WBC 17.01 H 15.9 H (4.50-10.00) X 10*3/uL RBC 5.28 5.29 (4.40-5.60) X 10*6/uL Hgb 15.1 15.4 (13.0-17.0) g/dL Hct 46.3 46.0 (39.6-50.0) % Plt Count 338 317 (140-440) X 10*3/uL Comprehensive Metabolic Panel 10/13/20 10/14/20 Range/Units 05:18 01:56 Sodium 138 137 (135-145) mmol/L Potassium 4.9 4.1 (3.5-5.5) mmol/L Chloride 104 106 (96-109) mmol/L Carbon Dioxide 25.3 24 (21.6-31.8) mmol/L BUN 49.0 H 43 H (9.0-27.0) mg/dL Creatinine 1.1 0.90 (0.6-1.5) mg/dL Glucose 226 H 146 H (70-110) mg/dL Calcium 9.2 9.0 (8.7-10.3) mg/dL AST 23 (17-59) U/L ALT 22 (4-49) U/L Alkaline Phosphatase 59 (38-126) U/L Total Protein 5.2 L (6.3-8.2) g/dL Albumin 2.7 L (3.5-5.0) g/dL Current Medications Generic Name Dose Route Start Last Admin Trade Name Freq PRN Reason Stop Dose Admin Hydrocodone Bitart/Acetaminophen 1 each 10/13/20 11:24 10/13/20 11:42 Hydrocodone/Apap 5-325mg 1 Each Tab PO 1 each Q4HR PRN Administration Pain Albuterol Sulfate 1 puff 10/13/20 02:18 Albuterol Hfa Inhaler INHALATION RT-Q6H PRN Shortness Of Breath Apixaban 2.5 mg 10/13/20 09:00 10/14/20 09:18 Apixaban 2.5 Mg Tablet PO 2.5 mg BID TRA Administration Ascorbic Acid 1,000 mg 10/14/20 09:00 10/14/20 09:18 Ascorbic Acid 500 Mg Tab PO 1,000 mg DAILY TRA Administration Aspirin 81 mg 10/13/20 09:00 10/14/20 09:17 Aspirin 81 Mg PO 81 mg DAILY TRA Administration Atorvastatin Calcium 80 mg 10/13/20 21:00 10/13/20 21:21 Atorvastatin 80 Mg Tab PO 80 mg HS TRA Administration Cholecalciferol 50 mcg 10/14/20 09:00 10/14/20 09:18 Cholecalciferol 25 Mcg (1000 Iu) Tablet PO 50 mcg DAILY TRA Administration Dexamethasone Sodium Phosphate 6 mg 10/14/20 09:00 10/14/20 09:18 Dexamethasone Sod Phosphate 10 Mg/Ml 1 Ml Vial IV 6 mg DAILY TRA Administration Famotidine 20 mg 10/14/20 09:00 10/14/20 09:18 Famotidine 20 Mg Tab PO 20 mg BID TRA Administration Azithromycin 500 mg/ Sodium 250 mls @ 250 mls/hr 10/13/20 21:00 10/13/20 21:21 Chloride IVPB 250 mls/hr HS TRA Administration Ceftriaxone Sodium 1 gm/ 50 mls @ 100 mls/hr 10/13/20 09:00 10/14/20 09:17 Sodium Chloride IVPB 100 mls/hr Q24HR TRA Administration Insulin Aspart 0 unit 10/13/20 07:30 10/14/20 09:18 Insulin Aspart (Novolog) 100 Unit/Ml Vial SQ 1 unit ACHS TRA Administration Protocol Latanoprost 1 drops 10/13/20 21:00 10/13/20 21:20 Latanoprost 0.005% Ophth Drops 2.5 Ml Btl BOTH EYES 1 drops HS TRA Administration Naloxone HCl 0.2 mg 10/12/20 22:48 Naloxone 0.4 Mg/Ml 1 Ml Vial IV Q2M PRN Opioid Reversal Zinc Sulfate 220 mg 10/14/20 09:00 10/14/20 09:17 Zinc Sulfate 220 Mg Cap PO 220 mg DAILY TRA Administration Intake and Output 10/13/20 10/14/20 10/14/20 22:59 06:59 14:59 Intake Total 840 Output Total 300 250 Balance 540 -250 Intake: Intake, IV Titration 50 Amount cefTRIAXone 1 gm In 50 Sodium Chloride 0.9% 50 ml @ 100 mls/hr IVPB Q24HR TRA Rx#:[id number] Oral 790 Output: Urine 300 250 Other: # Voids 1 1 Weight 108.862 kg 10/14/20 01:56 10/14/20 01:56
[2020-10-14] MEDS ORDERED: METOPROLOL TARTRATE 25 MG TAB PO STA (09:52)
[2020-10-14 11:34] LABS: Glucose,Whole Blood 246 mg/dL (75-99)
--- NOTE | 2020-10-14 12:14 | ECHOF ---
Referral Reason:sob, hx cardiomyopathy MEASUREMENTS -------- HEIGHT: 157.5 cm WEIGHT: 108.9 kg BP: IVSd: 1.2 cm (0.6 - 1.1) LVIDd: 4.5 cm (3.9 - 5.3) LVPWd: 1.5 cm (0.6 - 1.1) IVSs: 1.5 cm LVIDs: 2.9 cm LVPWs: 1.7 cm LAESV Index (A-L): 38.79 ml/m Ao Diam: 3.8 cm (2.0 - 3.7) AV Cusp: 1.7 cm (1.5 - 2.6) LA Diam: 4.4 cm (2.7 - 3.8) MV EXCURSION: 20.681 mm (> 18.000) MV EF SLOPE: 185 mm/s (70 - 150) EPSS: 0.9 cm RAP: 5.00 mmHg RVSP: 19.80 mmHg FINDINGS -------- Pacerwire seen in RV and RA. This was a technically difficult study with suboptimal views. Pt is Covid positive. The left ventricular size is normal. There is mild concentric left ventricular hypertrophy. There is severe global hypokinesis of LV . Overall left ventricular systolic function is severely impair ed with, an EF between 25 - 30 %. The right ventricle is normal in size. LA is moderately dilated 34-39 ml/m2 The right atrial size is normal. There is moderate aortic valve sclerosis. There is no evidence of aortic regurgitation. Mild mitral annular calcification present. Mild mitral regurgitation is present. The tricuspid valve appears structurally normal. Mild tricuspid regurgitation present. Right vent ricular systolic pressure is normal at < 35 mmHg. The pulmonic valve was not well visualized. The aortic root size is normal. Echo free space represents a pericardial fat pad. CONCLUSIONS -------- 1. Pacerwire seen in RV and RA. 2. Pt is Covid positive. 3. There is mild concentric left ventricular hypertrophy. 4. There is severe global hypokinesis of LV . 5. Overall left ventricular systolic function is severely impaired with, an EF between 25 - 30 %. 6. LA is moderately dilated 34-39 ml/m2 7. There is moderate aortic valve sclerosis. 8. Mild mitral regurgitation is present. 9. Mild tricuspid regurgitation present. 10. Echo free space represents a pericardial fat pad. [employer]KER: Gloria Mitchell RDCS
[2020-10-14] MEDS ORDERED: ALPRAZolam 0.25 MG TAB PO PRN (12:25)
--- NOTE | 2020-10-14 14:03 | P.CN ---
Psychiatric Consult - . Consult date: 10/14/20 Consult:: 10/14/20 13:54 IDENTIFYING DATA: This patient is a 84-year-old male who currently lives alone and is and has his son stay with him at times in his house and has 2 kids. REASON FOR REFERRAL: Psychiatry was consulted for depression HISTORY OF PRESENT ILLNESS: The patient presented to the hospital initially for weakness and claimed that he had a diagnosis of covid since 10/04. Patient has been receiving treatment and complained of cough and shortness of breath in the ER and also a poor appetite. Patient's WBCs were elevated above 19,000. Patient apparently has been reporting increasing depression according to his son and patient also today stated that he wanted to "slip away". Patient's nurse claims that patient has been more depressed and making passive suicidal statements without any plan. Patient was seen today with a sitter at the bedside. Patient had a constricted affect and was flat and also concrete in his speech. He spoke in a monotone voice. He spoke about getting diagnosed with covid and states that it's been a difficult past 2 weeks as his depression has been getting worse. He states that he was having pain in his abdomen and coughing spells. He claims that he went to [facility] initially and then got sent home and then came back to [facility] after his son was concerned about his condition. He states that he has several stressors in his life including his ongoing and chronic medical issues with his heart. He states that he is diagnosed with atrial fibrillation a year and a half ago and recently had a pacemaker put in. He states that he has been not able to enjoy most things in his life anymore including playing golf and being more active due to his heart condition. He states that he is now less active and is also having pain in his feet. He claims that he has been depressed since his 14 years ago and states that it is increased for the past 2 weeks. He states that his sleep is poor and appetite is poor. He is endorsing anxiety today. . At this time patient denies any homical ideations, intent or plan. Patient did state that he is currently having suicidal thoughts however no intent or plan. Patient denies any auditory, visual hallucinations and denies any paranoia or delusions. Patients admits to using no recreational drugs or cigarettes PAST PSYCHIATRIC HISTORY: Patient has a a history of depression and anxiety. Patient claims that he was previously on medications and antidepressants however does not remember which ones. Patient denies any previous psychiatric hospitalizations. Patient denies any psychiatric outpatient follow-up. Patient denies any history of suicide attempts in the past. PAST MEDICAL HISTORY: Hypertension, hyperlipidemia, heart failure, atrial fibrillation, skin cancer. ALLERGIES: as per EMR. CHEMICAL DEPENDENCY HISTORY: as per HPI. FAMILY PSYCHIATRIC/SUBSTANCE USE HISTORY: denies SOCIAL HISTORY: Patient was born and raised in [facility]. He states that he completed 2 years of college and completed high school. 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 He states that he currently lives alone and has a son stay with them. He claims that he lives in a house and is . He stated he has 2 kids. He denies any legal history. MENTAL STATUS EXAM: General Appearance: Patient appears to be a tall, stated age is alert, constricted affect and attempts to cooperate. Patient appears to have fair hygiene and grooming wearing hospital gown with poor eye contact. Behavior: Patient is calmly lying in bed without any agitated behavior. Speech: Patient's speech is fluent and nonpressured. Monotone and concrete Mood/Affect: Patient reports their mood is "depressed and anxious", affect is congruent and flat Suicidality/Homicidality: Patient denies having any homicidal ideation intent or plan. He admits to suicidal ideations however no intent or plan today. Perceptions: Patient denies any visual hallucinations and denies any auditory hallucinations Though content/process: There is no evidence of any delusional thought content and thought process is linear and goal-directed. [place]. Focused on his symptoms. Memory and concentration: AOX3, grossly intact for the purposes of this session. 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 -Would recommend the following medication changes/additions: We'll start Zoloft 25 mg daily for mood/anxiety, Remeron 15 mg daily at bedtime for mood/insomnia/appetite. -Continue 1:1 sitter for safety -recycle worker to provide patient with outpatient mental health/psychiatry resources for appropriate follow up upon discharge -Communicated plan to patient's nurse -Will continue to follow along -Please contact with any questions.
--- NOTE | 2020-10-14 14:36 | P.PN ---
Subjective Progress Note Date: 10/14/20 Patient reports feeling overall ill, but predominantly complains of depression and anxiety. He has felt run down since receiving J&J vaccine 3 weeks ago and has not recovered. Objective - Vital Signs Vital signs: Vital Signs Temp 97.3 F L 10/14/20 14:00 Pulse 77 10/14/20 14:00 Resp 17 10/14/20 14:00 BP 96/68 10/14/20 14:00 Pulse Ox 93 L 10/14/20 14:00 Intake & Output 10/13/20 10/14/20 10/14/20 18:59 06:59 18:59 Intake Total 840 Output Total 800 250 Balance 40 -250 Weight 108.862 kg Intake: Intake, IV Titration 50 Amount cefTRIAXone 1 gm In 50 Sodium Chloride 0.9% 50 ml @ 100 mls/hr IVPB Q24HR TRA Rx#:[id number] Oral 790 Output: Urine 800 250 Other: # Voids 1 1 - Exam Gen: awake, alert HEENT: normocephalic, atraumatic, good hearing acuity, moist mucous membranes Resp: good air exchange, breathing comfortably with no accessory muscle use, clear to auscultation bilaterally without wheezes CVS: good distal perfusion x 4, regular rate and rhythm without murmurs GI: soft, NTTP, ND : no SPT, no CVAT, sandhu catheter not present MSK: no pitting edema, no clubbing Neuro: non-focal, moving all extremities Psych: cooperative, euthymic mood - Labs CBC & Chem 7: 10/14/20 01:56 10/14/20 01:56 Labs: Abnormal Lab Results - Last 24 Hours (Table) 10/13/20 10/13/20 10/13/20 Range/Units 05:18 16:31 17:58 WBC (3.8-10.6) k/uL BUN (9-20) mg/dL Glucose (74-99) mg/dL POC Glucose (mg/dL) 349 H 290 H (75-99) mg/dL Hemoglobin A1c 9.8 H (4.0-6.0) % Total Protein (6.3-8.2) g/dL Albumin (3.5-5.0) g/dL 10/13/20 10/14/20 10/14/20 Range/Units 20:58 01:56 01:56 WBC 15.9 H (3.8-10.6) k/uL BUN 43 H (9-20) mg/dL Glucose 146 H (74-99) mg/dL POC Glucose (mg/dL) 219 H (75-99) mg/dL Hemoglobin A1c (4.0-6.0) % Total Protein 5.2 L (6.3-8.2) g/dL Albumin 2.7 L (3.5-5.0) g/dL 10/14/20 10/14/20 10/14/20 Range/Units 07:10 07:23 11:33 WBC (3.8-10.6) k/uL BUN (9-20) mg/dL Glucose (74-99) mg/dL POC Glucose (mg/dL) 147 H 156 H 246 H (75-99) mg/dL Hemoglobin A1c (4.0-6.0) % Total Protein (6.3-8.2) g/dL Albumin (3.5-5.0) g/dL Microbiology - Last 24 Hours (Table) 10/12/20 22:30 Blood Culture - Preliminary Blood No Growth after 24 hours Assessment and Plan Assessment: New lung infiltrate, possible superimposed bacterial pneumonia -Follow-up pro-calcitonin levels = 0.09 -Continue with azithromycin and ceftriaxone for now -CT Chest to r/o PE -pulmonary consult, pending Prerenal azotemia -Likely secondary to dehydration with poor oral intake -Judicious use of IV fluids in setting of significant CHF history -Hold off on home diuretics for now -Hold home anti-HTNs Depression Anxiety -psychiatry following -1:1 sitter -started on zoloft and remeron Chronic conditions: A. fib, type II DM, hypertension, hyperlipidemia -Hold off on home diuretics at this time -hold home losartan 100 mg daily -Check A1c -Hold oral hypoglycemics -Lispro insulin sliding scale with blood glucose monitoring DVT prophylaxis -Eliquis The patient is admitted with an anticipated greater than 2 midnight stay for evaluation of pneumonia CODE STATUS: Full Code Discussed with: Patient Anticipated discharge date: 2-[address]: Home
[2020-10-14 14:44] VITALS: BMI 32.5
[2020-10-14] MEDS: SERTRALINE 25 MG TAB PO SCH (14:46)
[2020-10-14] MEDS: ALBUTEROL HFA INHALER INHALATION PRN ×2 (15:26→20:56)
--- NOTE | 2020-10-14 16:11 | P.CNPUL ---
History of Present Illness Consult date: 10/14/20 Requesting physician: Ayan Theodore Reason for consult: dyspnea Chief complaint: Dyspnea, cough History of present illness: 84-year-old white male patient of Dr. Cotton with past juan diego a history of chronic A. fib on Eliquis, chronic CHF with systolic dysfunction, status post AICD placement diabetes mellitus type 2, lifetime nonsmoker, previous history of depression who came into the emergency department on 10/12/2020 for evaluation of increased weakness. Patient was diagnosed with COVID-19 on 10/04/2020 and received Bamlanivimab and steroids. Apparently he also received his Jose Alfredo & Jose Alfredo vaccine 3 weeks ago. However the following week he developed symptoms of cough, loss of taste, weakness, poor appetite, but patient denies ever having fever, no nausea vomiting or diarrhea no chest pain. No lightheadedness or dizziness. He states it was difficult for him to even walk because of his legs giving out. Chest x-ray in emergency department revealed mild airspace pneumonia in the left lower lobe which was new compared to his most previous chest x-ray. Heart was of normal size, and there was no evidence of heart failure. There was a left axillary pacemaker in place. Costophrenic angles were clear. COVID-19 test was positive, influenza and RSV screens were negative. His white blood cell count was elevated at 19.5, hemoglobin was 17.1, neutrophil count was elevated at 17.1, d-dimer was negative at 0.19, rest the coagulation profile was unremarkable, sodium was 134, potassium is 4.9, BUN is 57 and creatinine was 1.06, glucose was elevated at 253, LDH was 958, LFTs were within normal limits, troponin was less than 0.012, pro-calcitonin level was negative at 0.07, urinalysis showed trace protein, 1+ ketones but no definite sign of infection, CTA chest was completed showing no evidence of pulmonary embolism and bilateral patchy pulmonary infiltrates consistent with multifocal pneumonia. Patient was started on Decadron, patient was outside the window for Remdesivir, he continues on Eliquis and he was empirically placed on azithromycin and Rocephin. Review of Systems All systems: negative Constitutional: Reports fatigue, Reports poor appetite, Reports weakness, Denies chills, Denies fever Eyes: denies blurred vision, denies pain Ears, nose, mouth and throat: Denies headache, Denies sore throat Cardiovascular: Denies chest pain, Denies shortness of breath Respiratory: Reports dyspnea, Denies cough Gastrointestinal: Denies abdominal pain, Denies diarrhea, Denies nausea, Denies vomiting Musculoskeletal: Denies myalgias Integumentary: Denies pruritus, Denies rash Neurological: Denies numbness, Denies weakness Psychiatric: Denies anxiety, Denies depression Endocrine: Denies fatigue, Denies weight change Past Medical History Past Medical History: Atrial Fibrillation, Coronary Artery Disease (CAD), Cancer, Heart Failure, Diabetes Mellitus, Hyperlipidemia, Hypertension, Osteoarthritis (OA), Sleep Apnea/CPAP/BIPAP Additional Past Medical History / Comment(s): Pt tested covid + on 10/04/20 at [facility] and again covid + on 10/12/20 at [facility] ER. Other hx: Nonischemic cardiomyopathy, bradycardia, NIDDM type II, neuropathy bilateral feet-difficulty with walking, FALL, ERIC without device use, bilateral glaucoma History of Any Multi-Drug Resistant Organisms: None Reported Past Surgical History: AICD, Appendectomy, Heart Catheterization With Stent, Pacemaker, Tonsillectomy Additional Past Surgical History / Comment(s): 02/17/20 AICD, pacer, UVPPP, skin cancer removed from L ear with skin graft, colonoscopy/benign polyp, R eye retinal re-attachment, bilateral cataract removals. Past Anesthesia/Blood Transfusion Reactions: No Reported Reaction Additional Past Anesthesia/Blood Transfusion Reaction / Comment(s): PT ADOPTED. Date of Last Stent Placement:: 2018 Type of Cardiac Device: AICD Device Placement Date:: 02/17/20 Smoking Status: Never smoker - Past Family History Family History Unknown: Yes Family Medical History: No Reported History Additional Family Medical History / Comment(s): PT ADOPTED. Medications and Allergies Home Medications Medication Instructions Recorded Confirmed Type glipiZIDE [Glucotrol] 2.5 mg PO AC-BID 03/21/19 10/12/20 History metFORMIN HCL [Glucophage] 1,000 mg PO BID 03/21/19 10/12/20 History Latanoprost Ophth [Xalatan 0.005%] 1 drop BOTH EYES HS 04/18/19 10/12/20 History Losartan/Hydrochlorothiazide 1 tab PO DAILY 05/22/19 10/12/20 History [Losartan-Hctz 100-25 mg Tab] Atorvastatin [Lipitor] 80 mg PO HS #90 tab 05/24/19 10/12/20 Rx Spironolactone 25 mg PO DAILY #90 tablet 02/17/20 10/12/20 Rx Albuterol Inhaler [Ventolin Hfa 1 puff INHALATION RT-Q6H PRN 10/12/20 10/12/20 History Inhaler] Apixaban [Eliquis] 2.5 mg PO BID 10/12/20 10/12/20 History Aspirin EC [Ecotrin Low Dose] 81 mg PO DAILY 10/12/20 10/12/20 History Potassium Chloride ER [K-Dur 10] 10 meq PO DAILY 10/12/20 10/12/20 History Propranolol HCl [Inderal Xl] 80 mg PO HS 10/12/20 10/12/20 History Allergies Allergy/AdvReac Type Severity Reaction Status Date / Time lisinopril [From Zestril] AdvReac Unknown Cough Verified 10/12/20 23:42 Physical Exam Vitals: Vital Signs Temp Pulse Resp BP BP Pulse Ox 10/14/20 14:00 97.3 F L 77 17 96/68 93 L 10/14/20 10:00 98.3 F 57 L 19 107/56 98 10/14/20 09:27 102/56 10/14/20 09:00 97.9 F 57 L 16 78/55 75/58 98 10/14/20 05:15 97.7 F 98 17 108/72 96 10/14/20 02:45 89 110/69 96 10/14/20 01:45 97.6 F 79 16 94/48 94 L 10/14/20 00:30 65 110/67 95 10/13/20 23:54 109 H 87/59 10/13/20 23:20 99 90/54 10/13/20 22:30 97.4 F L 104 H 16 90/61 95 10/13/20 20:57 63 106/70 10/13/20 20:42 51 L 88/57 95 10/13/20 20:32 49 L 101/71 10/13/20 20:08 108 H 92/54 10/13/20 18:25 99/64 10/13/20 18:10 85/56 10/13/20 18:00 97.9 F 59 L 16 86/51 95 10/13/20 16:30 97.7 F 54 L 20 121/65 94 L Intake and Output 10/14/20 10/14/20 10/14/20 06:59 14:59 22:59 Output Total 250 Balance -250 Output: Urine 250 Other: # Voids 1 Weight 108.862 kg GENERAL EXAM: Alert, very pleasant, 84-year-old white male, on room air, with a pulse ox of 93-98% comfortable in no apparent distress. HEAD: Normocephalic/atraumatic. EYES: Normal reaction of pupils, equal size. Conjunctiva pink, sclera white. NOSE: Clear with pink turbinates. THROAT: No erythema or exudates. NECK: No masses, no JVD, no thyroid enlargement, no adenopathy. CHEST: No chest wall deformity. Symmetrical expansion. LUNGS: Equal air entry with minimal crackles at bilateral bases CVS: Regular rate and rhythm, normal S1 and S2, no gallops, no murmurs, no rubs ABDOMEN: Soft, nontender. No hepatosplenomegaly, normal bowel sounds, no guarding or rigidity. EXTREMITIES: No clubbing, no edema, no cyanosis, 2+ pulses and upper and lower extremities. MUSCULOSKELETAL: Muscle strength and tone normal. SPINE: No scoliosis or deformity SKIN: No rashes CENTRAL NERVOUS SYSTEM: Alert and oriented -3. No focal deficits, tone is normal in all 4 extremities. PSYCHIATRIC: Alert and oriented -3. Appropriate affect. Intact judgment and insight. Results - Laboratory Findings CBC and BMP: 10/14/20 01:56 10/14/20 01:56 PT/INR, D-dimer PT 10.8 sec (9.0-12.0) 10/12/20 20:36 INR 1.0 (<1.2) 10/12/20 20:36 D-Dimer 0.19 mg/L FEU (<0.60) 10/12/20 20:36 Abnormal lab findings: Abnormal Labs 10/12/20 10/12/20 10/12/20 20:36 20:36 20:36 WBC 19.5 H RBC 6.03 H Neutrophils # 17.1 H Sodium 134 L BUN 57 H BUN/Creatinine Ratio Glucose 253 H POC Glucose (mg/dL) Hemoglobin A1c Lactate Dehydrogenase 958 H Total Protein Albumin Urine Protein Trace H Urine Ketones 1+ H SARS-CoV-2 (PCR) 10/12/20 10/13/20 10/13/20 23:05 02:46 05:18 WBC 17.01 H RBC Neutrophils # Sodium BUN BUN/Creatinine Ratio Glucose POC Glucose (mg/dL) 243 H Hemoglobin A1c Lactate Dehydrogenase Total Protein Albumin Urine Protein Urine Ketones SARS-CoV-2 (PCR) Detected A 10/13/20 10/13/20 10/13/20 05:18 05:18 07:55 WBC RBC Neutrophils # Sodium BUN 49.0 H BUN/Creatinine Ratio 44.55 H Glucose 226 H POC Glucose (mg/dL) 199 H Hemoglobin A1c 9.8 H Lactate Dehydrogenase Total Protein Albumin Urine Protein Urine Ketones SARS-CoV-2 (PCR) 10/13/20 10/13/20 10/13/20 11:40 16:31 17:58 WBC RBC Neutrophils # Sodium BUN BUN/Creatinine Ratio Glucose POC Glucose (mg/dL) 232 H 349 H 290 H Hemoglobin A1c Lactate Dehydrogenase Total Protein Albumin Urine Protein Urine Ketones SARS-CoV-2 (PCR) 10/13/20 10/14/20 10/14/20 20:58 01:56 01:56 WBC 15.9 H RBC Neutrophils # Sodium BUN 43 H BUN/Creatinine Ratio Glucose 146 H POC Glucose (mg/dL) 219 H Hemoglobin A1c Lactate Dehydrogenase Total Protein 5.2 L Albumin 2.7 L Urine Protein Urine Ketones SARS-CoV-2 (PCR) 10/14/20 10/14/20 10/14/20 07:10 07:23 11:33 WBC RBC Neutrophils # Sodium BUN BUN/Creatinine Ratio Glucose POC Glucose (mg/dL) 147 H 156 H 246 H Hemoglobin A1c Lactate Dehydrogenase Total Protein Albumin Urine Protein Urine Ketones SARS-CoV-2 (PCR) - Diagnostic Findings Chest x-ray: report reviewed, image reviewed CT scan - chest: report reviewed, image reviewed Assessment and Plan Plan: Assessment: #1. Acute COVID-19 pneumonia, without hypoxemia, patient is on room air, with a pulse ox 93-98%, onset of symptoms was 2 weeks prior to presentation. Patient is currently on Decadron, not a candidate for Remdesivir #2. Recent COVID-19 vaccination with a Jose Alfredo & Jose Alfredo vaccine 3 weeks ago #3. History of severe systolic CHF, status post AICD placement #4. History of ischemic cardiomyopathy #5. Coronary artery disease with previous PCI #6. Diabetes mellitus type 2 #7. Hypertension #8. Hyperlipidemia #9. History of paroxysmal atrial fibrillation on Eliquis #10. History of obstructive sleep apnea unknown whether the patient uses CPAP on a regular basis #11. Lifetime nonsmoker #12. Depression Plan: Not a candidate for Remdesivir Continue all Decadron Continue oral anticoagulation Not requiring any supplemental oxygen right now We'll continue to monitor for worsening dyspnea or hypoxia Send a pro-calcitonin level We'll continue to follow I performed a history & physical examination of the patient and discussed their management with my nurse practitioner, Jennifer Ewing. I reviewed the nurse practitioner's note and agree with the documented findings and plan of care. Lung sounds are positive for diminished breath sounds The findings and the impression was discussed with the patient. I attest to the documentation by the nurse practitioner. Time with Patient: Greater than 30
[2020-10-14] MEDS: METOPROLOL TARTRATE 25 MG TAB PO SCH (16:35)
[2020-10-14 16:37] LABS: Glucose,Whole Blood 322 mg/dL (75-99)
[2020-10-14] MEDS: MIRTAZAPINE 15 MG TAB PO SCH (19:45)
[2020-10-14] MEDS: ATORVASTATIN 80 MG TAB PO SCH (19:45)
[2020-10-14] MEDS: AZITHROMYCIN 500 MG in SODIUM CHLORIDE 0.9% 250 ML IVPB SCH (19:45)
[2020-10-14] MEDS: LATANOPROST 0.005% OPHTH DROPS 2.5 ML BTL BOTH EYES SCH (19:46)
[2020-10-14 20:55] LABS: Glucose,Whole Blood 286 mg/dL (75-99)
[2020-10-15 07:34] LABS: Glucose,Whole Blood 283 mg/dL (75-99)
[2020-10-15] MEDS: ASCORBIC ACID 500 MG TAB PO SCH (09:16)
[2020-10-15] MEDS: CHOLECALCIFEROL 25 MCG (1000 IU) TABLET PO SCH (09:16)
[2020-10-15] MEDS: METOPROLOL TARTRATE 25 MG TAB PO SCH ×2 (09:17→20:02)
[2020-10-15] MEDS: FAMOTIDINE 20 MG TAB PO SCH ×2 (09:17→20:02)
[2020-10-15] MEDS: APIXABAN 2.5 MG TABLET PO SCH ×2 (09:17→20:02)
[2020-10-15] MEDS: INSULIN ASPART (NovoLOG) 100 UNIT/ML VIAL SQ SCH ×4 (09:17→20:30)
[2020-10-15] MEDS: ASPIRIN 81 MG PO SCH (09:17)
[2020-10-15] MEDS: ZINC SULFATE 220 MG CAP PO SCH (09:17)
[2020-10-15] MEDS: SERTRALINE 25 MG TAB PO SCH (09:25)
--- NOTE | 2020-10-15 10:06 | P.PN ---
Subjective HISTORY OF PRESENTING ILLNESS This is a pleasant 84-year-old male past medical history significant for nonischemic cardiomyopathy status post AICD, coronary artery disease status post PCI to the branch 2018, chronic systolic heart failure, hypertension, dyslipidemia, paroxysmal atrial fibrillation, obstructive sleep apnea and diabetes mellitus. He follows in the office with Dr. Craig. We have been asked to see in consultation for heart failure. He presented to the hospital with symptoms of increased weakness. He was originally diagnosed with Covid on October 04 and has been taking outpatient medication since that time. He states since his original diagnosis he has felt increasingly weak, tired, achy with shortness of breath and persistent cough. He is seen and examined sitting on the edge of the bed. He states he is dying and wishes we could speed things up. There has been a consult placed for psychiatry. He denies symptoms of chest pain, dizziness or palpitations. 10/15/2020 Pt seen and examined resting comfortably laying flat in bed in no acute distress. He denies chest pain or shortness of breath. Telemetry tracings reviewed, yesterday afternoon he had some episodes of afib with RVR, oral medications were given due to hypotension. Today is paced on the monitor with heart rates in the 60's. Blood pressure 129/69 afebrile. vice chancellor at the bedside for suicidal ideation. Echocardiogram obtained reveals severely impaired LV systolic function with global LV hypokinesia with ejection fraction of 25-30%, moderately dilated left atrium, mild MR and mild TR noted. Currently maintained on Eliquis 2.5 mg twice a day, aspirin 81 mg daily, atorvastatin 80 mg daily and metoprolol 25 mg twice a day. PHYSICAL EXAMINATION CONSTITUTIONAL: No apparent distress. HEENT: Head is normocephalic. Pupils are equal, round. Sclerae anicteric. Mucous membranes of the mouth are moist. No JVD. No carotid bruit. CHEST EXAMINATION: Faint bibasilar crackles, no wheezes or rhonchi. No chest wall tenderness is noted on palpation or with deep breathing. HEART EXAMINATION: Irregular rate and rhythm. S1, S2 heard. No murmurs, gallops or rub. EXTREMITIES: 2+ peripheral pulses, no lower extremity edema and no calf t enderness. ASSESSMENT Covid 19 Covid pneumonia Chronic systolic heart failure s/p AICD Generalized weakness Leukocytosis Hypotension History of hypertension Coronary artery disease Dyslipidemia Paroxysmal atrial fibrillation and Eliquis Diabetes mellitus PLAN Losartan currently on hold due to hypotension. Continue eliquis for thromboembolic protection and beta blockers for heart rate control. Nurse Practitioner note has been reviewed, I agree with a documented findings and plan of care. Patient was seen and examined. Objective - Vital Signs Vital signs: Vital Signs Temp 97.9 F 10/15/20 05:25 Pulse 62 10/15/20 05:25 Resp 17 10/15/20 05:25 BP 129/69 10/15/20 05:25 Pulse Ox 97 10/15/20 05:25 Intake & Output 10/14/20 10/15/20 10/15/20 18:59 06:59 18:59 Intake Total 550 Output Total 250 Balance 300 Weight 108.862 kg Intake: Intake, IV Titration 250 Amount Azithromycin 500 mg In 250 Sodium Chloride 0.9% 250 ml @ 250 mls/hr IVPB HS TRA Rx#:[id number] Oral 300 Output: Urine 250 Other: # Voids 3 2 - Labs CBC & Chem 7: 10/14/20 01:56 10/14/20 01:56 Labs: Abnormal Lab Results - Last 24 Hours (Table) 10/14/20 10/14/20 10/14/20 Range/Units 11:33 16:36 20:53 POC Glucose (mg/dL) 246 H 322 H 286 H (75-99) mg/dL 10/15/20 Range/Units 07:29 POC Glucose (mg/dL) 283 H (75-99) mg/dL Microbiology - Last 24 Hours (Table) 10/12/20 22:30 Blood Culture - Preliminary Blood No Growth after 48 hours
[2020-10-15 12:07] LABS: Glucose,Whole Blood 314 mg/dL (75-99)
--- NOTE | 2020-10-15 12:57 | P.PN ---
Subjective Progress Note Date: 10/15/20 No new complaints today. Pt without hypoxia, dyspnea. Pain in legs improved. Appetite improved. Sleep improved. BPs improved. Objective - Vital Signs Vital signs: Vital Signs Temp 98.1 F 10/15/20 11:11 Pulse 60 10/15/20 11:11 Resp 16 10/15/20 11:11 BP 127/77 10/15/20 11:11 Pulse Ox 98 10/15/20 11:11 Intake & Output 10/14/20 10/15/20 10/15/20 18:59 06:59 18:59 Intake Total 550 Output Total 250 Balance 300 Weight 108.862 kg Intake: Intake, IV Titration 250 Amount Azithromycin 500 mg In 250 Sodium Chloride 0.9% 250 ml @ 250 mls/hr IVPB HS TRA Rx#:[id number] Oral 300 Output: Urine 250 Other: # Voids 3 2 - Exam Gen: awake, alert HEENT: normocephalic, atraumatic, good hearing acuity, moist mucous membranes Resp: good air exchange, breathing comfortably with no accessory muscle use, clear to auscultation bilaterally without wheezes CVS: good distal perfusion x 4, regular rate and rhythm without murmurs GI: soft, NTTP, ND : no SPT, no CVAT, sandhu catheter not present MSK: no pitting edema, no clubbing Neuro: non-focal, moving all extremities Psych: cooperative, euthymic mood - Labs CBC & Chem 7: 10/14/20 01:56 10/14/20 01:56 Labs: Abnormal Lab Results - Last 24 Hours (Table) 10/14/20 10/14/20 10/15/20 Range/Units 16:36 20:53 07:29 POC Glucose (mg/dL) 322 H 286 H 283 H (75-99) mg/dL 10/15/20 Range/Units 12:04 POC Glucose (mg/dL) 314 H (75-99) mg/dL Microbiology - Last 24 Hours (Table) 10/12/20 22:30 Blood Culture - Preliminary Blood No Growth after 48 hours Assessment and Plan Assessment: New lung infiltrate, possible superimposed bacterial pneumonia -Follow-up pro-calcitonin levels = 0.09 -Continue with azithromycin and ceftriaxone for now - will complete course for CAP with levofloxacin on d/c tomorrow -CT Chest to r/o PE was negative -pulmonary consult, appreciate recs Prerenal azotemia -Likely secondary to dehydration with poor oral intake -Judicious use of IV fluids in setting of significant CHF history -Hold off on home diuretics for now -Hold home anti-HTNs Depression Anxiety -psychiatry following -1:1 sitter -started on zoloft and remeron Chronic conditions: A. fib, type II DM, hypertension, hyperlipidemia -Hold off on home diuretics at this time -hold home losartan 100 mg daily -Check A1c -Hold oral hypoglycemics -Lispro insulin sliding scale with blood glucose monitoring DVT prophylaxis -Eliquis The patient is admitted with an anticipated greater than 2 midnight stay for evaluation of pneumonia CODE STATUS: Full Code Discussed with: Patient Anticipated discharge date: 2-[address]: Home
--- NOTE | 2020-10-15 13:35 | P.PN ---
Progress Note - Text Progress Note Date: 10/15/20 Interval History: Patient was seen today for psychiatric follow up today. As per, patient's nurse, she states that patient has been doing better today in terms of his mood and had stated that he had slept better last night. Patient was seen at the bedside today with his one-to-one sitter at his side. Patient appeared to have a brighter affect and was more cooperative in his demeanor. He claims that he is feeling better overall today compared to yesterday. He states that he is feeling less depressed and less anxious. He states that he is still having difficulties with his lungs and getting through covid pneumonia however claims that he is much more optimistic about his future. We spoke about adjusting his capacity for activities that he enjoys including golf and bowling. Patient was more future oriented today and states that he has good support from his "lady friend down the road" and also his son. He states that he was able to sleep throughout the night. He claims that his appetite has been improving today. At this time patient denies any suicidal or homical ideations, intent or plan. Patient denies any auditory, visual hallucinations and denies any paranoia or delusions. Patient denies any side effects from the medications and has been compliant with meds. He states that he does have guns at home however they are locked away and hasn't used them in over 15 years. Mental Status Exam: General Appearance: Patient appears to be a tall, stated age is alert, improv ement in his affect and is more cooperative. Patient appears to have fair hygiene and grooming wearing hospital gown, improvement in eye contact. Behavior: Patient is calmly lying in bed without any agitated behavior Speech: Patient's speech is fluent and nonpressured. Mood/Affect: Patient reports their mood is "much better", affect is congruent Suicidality/Homicidality: Patient denies having any homicidal ideation intent or plan. He is denying any suicidal ideations intent or plan today Perceptions: Patient denies any visual hallucinations and denies any auditory hallucinations Though content/process: There is no evidence of any delusional thought content and thought process is linear and goal-directed. Her future oriented today. Memory and concentration: AOX3, grossly intact for the purposes of this session. Judgment and insight: improving mildly Assessment Major depressive disorder, without psychotic features Anxiety disorder unspecified Plan: -At this time patient DOES NOT meet criteria for inpatient psychiatric admission. -Would recommend the following medication changes/additions: Continue with Zoloft 25 mg daily for mood/anxiety, Remeron 15 mg daily at bedtime for m ood/insomnia/appetite. -Okay to discontinue sitter at this time as patient is denying any suicidal thoughts and is [place] to safety. -smooth and burr worker composites to provide patient with outpatient mental health/psychiatry resources for appropriate follow up upon discharge. Recommended the patient should also be involved with individual therapy on no patient basis. -Communicated plan to patient's nurse -At this time psychiatry will sign off. -Please contact with any questions.
--- NOTE | 2020-10-15 14:59 | P.PN ---
Subjective Progress Note Date: 10/15/20 Principal diagnosis: COVID-19 pneumonia 84-year-old white male patient of Dr. Cotton with past juan diego a history of chronic A. fib on Eliquis, chronic CHF with systolic dysfunction, status post AICD placement diabetes mellitus type 2, lifetime nonsmoker, previous history of depression who came into the emergency department on 10/12/2020 for evaluation of increased weakness. Patient was diagnosed with COVID-19 on 10/04/2020 and received Bamlanivimab and steroids. Apparently he also received his Jose Alfredo & Jose Alfredo vaccine 3 weeks ago. However the following week he developed symptoms of cough, loss of taste, weakness, poor appetite, but patient denies ever having fever, no nausea vomiting or diarrhea no chest pain. No lightheadedness or dizziness. He states it was difficult for him to even walk because of his legs giving out. Chest x-ray in emergency department revealed mild airspace pneumonia in the left lower lobe which was new compared to his most previous chest x-ray. Heart was of normal size, and there was no evidence of heart failure. There was a left axillary pacemaker in place. Costophrenic angles were clear. COVID-19 test was positive, influenza and RSV screens were negative. His white blood cell count was elevated at 19.5, hemoglobin was 17.1, neutrophil count was elevated at 17.1, d-dimer was negative at 0.19, rest the coagulation profile was unremarkable, sodium was 134, potassium is 4.9, BUN is 57 and creatinine was 1.06, glucose was elevated at 253, LDH was 958, LFTs were within normal limits, troponin was less than 0.012, pro-calcitonin level was negative at 0.07, urinalysis showed trace protein, 1+ ketones but no definite sign of infection, CTA chest was completed showing no evidence of pulmonary embolism and bilateral patchy pulmonary infiltrates consistent with multifocal pneumonia. Patient was started on Decadron, patient was outside the window for Remdesivir, he continues on Eliquis and he was empirically placed on azit hromycin and Rocephin. On 10/15/2020 patient seen in follow-up on medical surgical floor, he is ata athing comfortably, he remains on room air pulse ox is 98%, no fever or chills, lung sounds are clear, no cough, no complaints of chest discomfort. He states he slept well last night. He has specific complaints. He is on Eliquis, Decadron has been discontinued, patient has not required any supplemental oxygen. No fever or chills, pro-calcitonin level is negative at 0.07 Objective - Vital Signs Vital signs: Vital Signs Temp 98.1 F 10/15/20 11:11 Pulse 60 10/15/20 11:11 Resp 16 10/15/20 11:11 BP 127/77 10/15/20 11:11 Pulse Ox 98 10/15/20 11:11 Intake & Output 10/14/20 10/15/20 10/15/20 18:59 06:59 18:59 Intake Total 550 Output Total 250 Balance 300 Weight 108.862 kg Intake: Intake, IV Titration 250 Amount Azithromycin 500 mg In 250 Sodium Chloride 0.9% 250 ml @ 250 mls/hr IVPB HS TRA Rx#:[id number] Oral 300 Output: Urine 250 Other: # Voids 3 2 - Exam GENERAL EXAM: Alert, very pleasant, 84-year-old white male, on room air, with a pulse ox of 93-98% comfortable in no apparent distress. HEAD: Normocephalic/atraumatic. EYES: Normal reaction of pupils, equal size. Conjunctiva pink, sclera white. NOSE: Clear with pink turbinates. THROAT: No erythema or exudates. NECK: No masses, no JVD, no thyroid enlargement, no adenopathy. CHEST: No chest wall deformity. Symmetrical expansion. LUNGS: Equal air entry with minimal crackles at bilateral bases CVS: Regular rate and rhythm, normal S1 and S2, no gallops, no murmurs, no rubs ABDOMEN: Soft, nontender. No hepatosplenomegaly, normal bowel sounds, no guarding or rigidity. EXTREMITIES: No clubbing, no edema, no cyanosis, 2+ pulses and upper and lower extremities. MUSCULOSKELETAL: Muscle strength and tone normal. SPINE: No scoliosis or deformity SKIN: No rashes CENTRAL NERVOUS SYSTEM: Alert and oriented -3. No focal deficits, tone is normal in all 4 extremities. PSYCHIATRIC: Alert and oriented -3. Appropriate affect. Intact judgment and insight. - Labs CBC & Chem 7: 10/14/20 01:56 10/14/20 01:56 Labs: Abnormal Lab Results - Last 24 Hours (Table) 10/14/20 10/14/20 10/15/20 Range/Units 16:36 20:53 07:29 POC Glucose (mg/dL) 322 H 286 H 283 H (75-99) mg/dL 10/15/20 Range/Units 12:04 POC Glucose (mg/dL) 314 H (75-99) mg/dL Microbiology - Last 24 Hours (Table) 10/12/20 22:30 Blood Culture - Preliminary Blood No Growth after 48 hours Assessment and Plan Plan: Assessment: #1. Acute COVID-19 pneumonia, without hypoxemia, patient is on room air, with a pulse ox 93-98%, onset of symptoms was 2 weeks prior to presentation. Patient is currently on Decadron, not a candidate for Remdesivir #2. Recent COVID-19 vaccination with a Boxed vaccine 3 weeks ago #3. History of severe systolic CHF, status post AICD placement #4. History of ischemic cardiomyopathy #5. Coronary artery disease with previous PCI #6. Diabetes mellitus type 2 #7. Hypertension #8. Hyperlipidemia #9. History of paroxysmal atrial fibrillation on Eliquis #10. History of obstructive sleep apnea unknown whether the patient uses CPAP on a regular basis #11. Lifetime nonsmoker #12. Depression Plan: Patient is doing well, remains on room air, no dyspnea Not a candidate for Remdesivir Decadron has been discontinued which is fine No worsening dyspnea or hypoxia Pro-calcitonin level was negative discontinue antibiotics From pulmonary perspective he stable for discharge home when cleared by other services I performed a history & physical examination of the patient and discussed their management with my nurse practitioner, Jennifer Ewing. I reviewed the nurse practitioner's note and agree with the documented findings and plan of care. Lung sounds are positive for diminished breath sounds The findings and the impression was discussed with the patient. I attest to the documentation by the nurse practitioner. Time with Patient: Less than 30
[2020-10-15 17:28] LABS: Glucose,Whole Blood 179 mg/dL (75-99)
[2020-10-15] MEDS: ATORVASTATIN 80 MG TAB PO SCH (20:02)
[2020-10-15] MEDS: MIRTAZAPINE 15 MG TAB PO SCH (20:02)
[2020-10-15] MEDS: ALBUTEROL HFA INHALER INHALATION PRN (20:14)
[2020-10-15 20:19] LABS: Glucose,Whole Blood 208 mg/dL (75-99)
[2020-10-15] MEDS: LATANOPROST 0.005% OPHTH DROPS 2.5 ML BTL BOTH EYES SCH (20:30)
[2020-10-15] MEDS ORDERED: AZITHROMYCIN 500 MG TAB PO SCH (21:00)
[2020-10-16 07:05] LABS: Glucose,Whole Blood 269 mg/dL (75-99)
[2020-10-16] MEDS: ALBUTEROL HFA INHALER INHALATION PRN (07:12)
[2020-10-16] MEDS: INSULIN ASPART (NovoLOG) 100 UNIT/ML VIAL SQ SCH ×2 (07:45→11:46)
[2020-10-16] MEDS: METOPROLOL TARTRATE 25 MG TAB PO SCH (07:46)
[2020-10-16] MEDS: CHOLECALCIFEROL 25 MCG (1000 IU) TABLET PO SCH (07:46)
[2020-10-16] MEDS: ASCORBIC ACID 500 MG TAB PO SCH (07:46)
[2020-10-16] MEDS: APIXABAN 2.5 MG TABLET PO SCH (07:46)
[2020-10-16] MEDS: ASPIRIN 81 MG PO SCH (07:46)
[2020-10-16] MEDS: FAMOTIDINE 20 MG TAB PO SCH (07:46)
[2020-10-16] MEDS: SERTRALINE 25 MG TAB PO SCH (07:46)
[2020-10-16] MEDS: ZINC SULFATE 220 MG CAP PO SCH (07:46)
[2020-10-16 10:56] VITALS: BP 166/81; PULSE 65; RESP 16; TEMP 97.8
[2020-10-16 11:42] LABS: Glucose,Whole Blood 291 mg/dL (75-99)
--- NOTE | 2020-10-16 13:07 | P.PN ---
Subjective Progress Note Date: 10/16/20 Principal diagnosis: COVID-19 pneumonia 84-year-old white male patient of Dr. Cotton with past juan diego a history of chronic A. fib on Eliquis, chronic CHF with systolic dysfunction, status post AICD placement diabetes mellitus type 2, lifetime nonsmoker, previous history of depression who came into the emergency department on 10/12/2020 for evaluation of increased weakness. Patient was diagnosed with COVID-19 on 10/04/2020 and received Bamlanivimab and steroids. Apparently he also received his Jose Alfredo & Jose Alfredo vaccine 3 weeks ago. However the following week he developed symptoms of cough, loss of taste, weakness, poor appetite, but patient denies ever having fever, no nausea vomiting or diarrhea no chest pain. No lightheadedness or dizziness. He states it was difficult for him to even walk because of his legs giving out. Chest x-ray in emergency department revealed mild airspace pneumonia in the left lower lobe which was new compared to his most previous chest x-ray. Heart was of normal size, and there was no evidence of heart failure. There was a left axillary pacemaker in place. Costophrenic angles were clear. COVID-19 test was positive, influenza and RSV screens were negative. His white blood cell count was elevated at 19.5, hemoglobin was 17.1, neutrophil count was elevated at 17.1, d-dimer was negative at 0.19, rest the coagulation profile was unremarkable, sodium was 134, potassium is 4.9, BUN is 57 and creatinine was 1.06, glucose was elevated at 253, LDH was 958, LFTs were within normal limits, troponin was less than 0.012, pro-calcitonin level was negative at 0.07, urinalysis showed trace protein, 1+ ketones but no definite sign of infection, CTA chest was completed showing no evidence of pulmonary embolism and bilateral patchy pulmonary infiltrates consistent with multifocal pneumonia. Patient was started on Decadron, patient was outside the window for Remdesivir, he continues on Eliquis and he was empirically placed on azit hromycin and Rocephin. On 10/15/2020 patient seen in follow-up on medical surgical floor, he is ata athing comfortably, he remains on room air pulse ox is 98%, no fever or chills, lung sounds are clear, no cough, no complaints of chest discomfort. He states he slept well last night. He has specific complaints. He is on Eliquis, Decadron has been discontinued, patient has not required any supplemental oxygen. No fever or chills, pro-calcitonin level is negative at 0.07 On 10/17/1999 the patient seen in follow-up on medical surgical floor, he is breathing comfortably, minimal cough last night, he remains on room air, pulse ox 95%, vital signs have been stable, no acute events overnight, and he states that he is being discharged home today. Objective - Vital Signs Vital signs: Vital Signs Temp 97.8 F 10/16/20 10:55 Pulse 65 10/16/20 10:55 Resp 16 10/16/20 10:55 BP 166/81 10/16/20 10:55 Pulse Ox 95 10/16/20 10:55 Intake & Output 10/15/20 10/16/20 10/16/20 18:59 06:59 18:59 Intake Total 600 Balance 600 Intake: Oral 600 Other: # Voids 2 3 # Bowel Movements 1 - Exam GENERAL EXAM: Alert, very pleasant, 84-year-old white male, on room air, with a pulse ox of 93-98% comfortable in no apparent distress. HEAD: Normocephalic/atraumatic. EYES: Normal reaction of pupils, equal size. Conjunctiva pink, sclera white. NOSE: Clear with pink turbinates. THROAT: No erythema or exudates. NECK: No masses, no JVD, no thyroid enlargement, no adenopathy. CHEST: No chest wall deformity. Symmetrical expansion. LUNGS: Equal air entry with minimal crackles at bilateral bases CVS: Regular rate and rhythm, normal S1 and S2, no gallops, no murmurs, no rubs ABDOMEN: Soft, nontender. No hepatosplenomegaly, normal bowel sounds, no guarding or rigidity. EXTREMITIES: No clubbing, no edema, no cyanosis, 2+ pulses and upper and lower extremities. MUSCULOSKELETAL: Muscle strength and tone normal. SPINE: No scoliosis or deformity SKIN: No rashes CENTRAL NERVOUS SYSTEM: Alert and oriented -3. No focal deficits, tone is normal in all 4 extremities. PSYCHIATRIC: Alert and oriented -3. Appropriate affect. Intact judgment and i nsight. - Labs CBC & Chem 7: 10/14/20 01:56 10/14/20 01:56 Labs: Abnormal Lab Results - Last 24 Hours (Table) 10/15/20 10/15/20 10/16/20 Range/Units 17:19 20:17 06:55 POC Glucose (mg/dL) 179 H 208 H 269 H (75-99) mg/dL 10/16/20 Range/Units 11:29 POC Glucose (mg/dL) 291 H (75-99) mg/dL Microbiology - Last 24 Hours (Table) 10/12/20 22:30 Blood Culture - Preliminary Blood No Growth after 72 hours Assessment and Plan Plan: Assessment: #1. Acute COVID-19 pneumonia, without hypoxemia, patient is on room air, with a pulse ox 93-98%, onset of symptoms was 2 weeks prior to presentation. Patient is currently on Decadron, not a candidate for Remdesivir #2. Recent COVID-19 vaccination with a Jose Alfredo & Jose Alfredo vaccine 3 weeks ago #3. History of severe systolic CHF, status post AICD placement #4. History of ischemic cardiomyopathy #5. Coronary artery disease with previous PCI #6. Diabetes mellitus type 2 #7. Hypertension #8. Hyperlipidemia #9. History of paroxysmal atrial fibrillation on Eliquis #10. History of obstructive sleep apnea unknown whether the patient uses CPAP on a regular basis #11. Lifetime nonsmoker #12. Depression Plan: Patient is doing well, remains on room air, no dyspnea No worsening dyspnea or hypoxia From pulmonary perspective he stable for discharge home, and outpatient follow- up with Dr. Viramontes in the office in 2 weeks I performed a history & physical examination of the patient and discussed their management with my nurse practitioner, Jennifer Ewing. I reviewed the nurse practitioner's note and agree with the documented findings and plan of care. Lung sounds are positive for diminished breath sounds The findings and the impression was discussed with the patient. I attest to the documentation by the nurse practitioner. Time with Patient: Less than 30
--- NOTE | 2020-10-16 16:09 | P.DS ---
Providers Date of admission: 10/12/20 22:36 Expected date of discharge: 10/16/20 Attending physician: Josefa Almazan MD Consults: 10/13/20 17:17 Consult Physician Routine Consulting Provider: John Lo Consult Reason/Comments: Depression? Son concerned about father's mood of late. Do you want consulting provider notified?: Yes 10/14/20 01:03 Consult Physician Routine Consulting Provider: Torsten Palma Consult Reason/Comments: abnormal EKG, CHF Do you want consulting provider notified?: Yes 10/14/20 08:48 Consult Physician Routine Consulting Provider: Arie Viramontes Consult Reason/Comments: COVID PNA Do you want consulting provider notified?: Yes Primary care physician: Gena Cotton MD Hospital Course: Lung Infiltrate -Follow-up pro-calcitonin levels = 0.09 -Continue with azithromycin and ceftriaxone, and rec'd 4 days of abx - patient's abx were d/c'd as recommended by the pulmonary team - will require follow up with CXR in 1-2 week -CT Chest to r/o PE was negative Chronic Systolic Heart Failure - on discharge, patients diuretics, spironolactone, and losartan were held. Se en by cardiology who will follow up with patient in clinic. - home propanolol ER was switched to 25mg metoprolol succinate XL daily Prerenal azotemia -Likely secondary to dehydration with poor oral intake -Judicious use of IV fluids in setting of significant CHF history - rec'd total of 500cc while in house -Hold off on home diuretics for now -Hold home anti-HTNs On discharge - patients losartan/HCTZ was held. Depression Anxiety -psychiatry evaluated patient and provided outpatient resources as well as recs to follow up for depression with psychiatry -1:1 sitter with no events -started on zoloft and remeron, prescribed on d/c Patient's PCP and I had a conversation over the phone regarding hospital course and discharge medication changes, as well as follow up plan. I spent 40 minutes preparing this discharge. Assessment: Gen: awake, alert HEENT: normocephalic, atraumatic, good hearing acuity, moist mucous membranes Resp: good air exchange, breathing comfortably with no accessory muscle use, clear to auscultation bilaterally without wheezes CVS: good distal perfusion x 4, regular rate and rhythm without murmurs GI: soft, NTTP, ND : no SPT, no CVAT, sandhu catheter not present MSK: no pitting edema, no clubbing Neuro: non-focal, moving all extremities Psych: cooperative, euthymic mood Patient Condition at Discharge: Good Plan - Discharge Summary Discharge Rx Participant: No New Discharge Prescriptions: New Mirtazapine [Remeron] 15 mg PO HS #30 tab Metoprolol Succinate (ER) [Toprol XL] 25 mg PO DAILY #30 tab Sertraline [Zoloft] 25 mg PO DAILY #30 tab Continue metFORMIN HCL [Glucophage] 1,000 mg PO BID glipiZIDE [Glucotrol] 2.5 mg PO AC-BID Latanoprost Ophth [Xalatan 0.005%] 1 drop BOTH EYES HS Atorvastatin [Lipitor] 80 mg PO HS #90 tab Albuterol Inhaler [Ventolin Hfa Inhaler] 1 puff INHALATION RT-Q6H PRN PRN Reason: Shortness Of Breath Aspirin EC [Ecotrin Low Dose] 81 mg PO DAILY Potassium Chloride ER [K-Dur 10] 10 meq PO DAILY Apixaban [Eliquis] 2.5 mg PO BID Discontinued Losartan/Hydrochlorothiazide [Losartan-Hctz 100-25 mg Tab] 1 tab PO DAILY Spironolactone 25 mg PO DAILY #90 tablet Propranolol HCl [Inderal Xl] 80 mg PO HS Discharge Medication List glipiZIDE [Glucotrol] 2.5 mg PO AC-BID 03/21/19 [History] metFORMIN HCL [Glucophage] 1,000 mg PO BID 03/21/19 [History] Latanoprost Ophth [Xalatan 0.005%] 1 drop BOTH EYES HS 04/18/19 [History] Atorvastatin [Lipitor] 80 mg PO HS #90 tab 05/24/19 [Rx] Albuterol Inhaler [Ventolin Hfa Inhaler] 1 puff INHALATION RT-Q6H PRN 10/12/20 [History] Apixaban [Eliquis] 2.5 mg PO BID 10/12/20 [History] Aspirin EC [Ecotrin Low Dose] 81 mg PO DAILY 10/12/20 [History] Potassium Chloride ER [K-Dur 10] 10 meq PO DAILY 10/12/20 [History] Metoprolol Succinate (ER) [Toprol XL] 25 mg PO DAILY #30 tab 10/16/20 [Rx] Mirtazapine [Remeron] 15 mg PO HS #30 tab 10/16/20 [Rx] Sertraline [Zoloft] 25 mg PO DAILY #30 tab 10/16/20 [Rx] Follow up Appointment(s)/Referral(s): Gena Cotton MD [Primary Care Provider] - 1-2 days (Office closed Monday. Please call office on Monday to make your appointment. Thank you.) Arie Viramontes DO [Doctor of Osteopathic Medicine] - 11/13/20 9:45 am Jad Craig MD [STAFF PHYSICIAN] - 11/12/20 4:30 pm Patient Instructions/Handouts: Coronavirus Disease 2019 (COVID-19) Discharge Disposition: HOME WITH HOME HEALTH SERVICES
== END 2020-10-16 13:50 | disposition home or self-care (01) | DRG 177 ==
LOC: EC 19:13 → 4SSUR 22:36
PROVIDERS: ADMIT Internal Medicine; ATTEND Internal Medicine
DX: U07.1 COVID-19 (principal); J12.82 Pneumonia due to coronavirus disease 2019; J15.9 Unspecified bacterial pneumonia; R45.851 Suicidal ideations; I42.8 Other cardiomyopathies; I50.22 Chronic systolic (congestive) heart failure; I11.0 Hypertensive heart disease with heart failure; E11.39 Type 2 diabetes mellitus with other diabetic ophthalmic complication; I48.0 Paroxysmal atrial fibrillation; E11.40 Type 2 diabetes mellitus with diabetic neuropathy, unspecified; I95.9 Hypotension, unspecified; M35.3 Polymyalgia rheumatica; G47.33 Obstructive sleep apnea (adult) (pediatric); E78.5 Hyperlipidemia, unspecified; E86.0 Dehydration; I08.1 Rheumatic disorders of both mitral and tricuspid valves; H40.9 Unspecified glaucoma; H42 Glaucoma in diseases classified elsewhere; I25.10 Atherosclerotic heart disease of native coronary artery without angina pectoris; F32.9 Major depressive disorder, single episode, unspecified; F41.9 Anxiety disorder, unspecified; R26.2 Difficulty in walking, not elsewhere classified; M19.90 Unspecified osteoarthritis, unspecified site; Z79.01 Long term (current) use of anticoagulants; Z79.82 Long term (current) use of aspirin; Z79.84 Long term (current) use of oral hypoglycemic drugs; Z79.899 Other long term (current) drug therapy; Z85.828 Personal history of other malignant neoplasm of skin; Z90.49 Acquired absence of other specified parts of digestive tract; Z95.5 Presence of coronary angioplasty implant and graft; Z87.19 Personal history of other diseases of the digestive system; Z98.42 Cataract extraction status, left eye; Z98.41 Cataract extraction status, right eye; Z86.69 Personal history of other diseases of the nervous system and sense organs; Z95.810 Presence of automatic (implantable) cardiac defibrillator; Z91.81 History of falling; Z98.890 Other specified postprocedural states; Z88.8 Allergy status to other drugs, medicaments and biological substances
CPT/HCPCS: 36415; 71045; 71046; 71275; 80048; 80053; 81003; 83036; 83605; 83615; 83735; 83880; 84145; 84484; 85025; 85027; 85379; 85610; 85730; 86140; 87040; 87636; 93005; 93306; 94640

== ENCOUNTER → 2021-07-28 | Outpatient (CLI) | payer MEDICARE, BC ==
[2021-07-28 16:11] LABS: Appearance,Urine Clear (Clear); Bilirubin,Urine Negative (Negative); Blood,Urine Negative (Negative); Color,Urine Yellow; Glucose,Urine (UA) Trace (Negative); Ketones,Urine Negative (Negative); Leukocyte Esterase,Urine Negative (Negative); Nitrite,Urine Negative (Negative); PH, Urine 5.5 (5.0-8.0); Protein,Urine Trace (Negative); Specific Gravity,Urine 1.027 (1.001-1.035); Urobilinogen,Urine <2.0 mg/dL (<2.0)
[2021-07-28 16:24] LABS: Partial Thromboplastin Time 25.3 sec (22.0-30.0); Prothrombin Time 10.7 sec (9.0-12.0)
[2021-07-28 23:15] LABS: African American GFR (CKD) 95.3 (60.0-200.0); Albumin/Globulin Ratio 1.47 (1.60-3.17); BUN/Creat Ratio 24.81 Ratio (12.00-20.00); Blood Urea Nitrogen 20.1 mg/dL (9.0-27.0); Calcium 9.2 mg/dL (8.7-10.3); Carbon Dioxide 21.7 mmol/L (20.0-27.5); Globulin 2.7 g/dL (1.6-3.3); HCT 47.2 % (39.6-50.0); HGB 14.8 g/dL (13.0-17.0); MCH 28.2 pg (27.0-32.0); MCHC 31.4 g/dL (32.0-37.0); MCV 90.1 fL (80.0-97.0); Mean Platelet Volume 11.5 fL (9.5-12.2); NRBC Per 100 WBC 0 /100 WBCS (0.0-0.0); Non-African American GFR(CKD) 82.2 (60.0-200.0); Platelet Count 224 X 10*3/uL (140-440); Potassium 4.9 mmol/L (3.5-5.5); RBC 5.24 X 10*6/uL (4.40-5.60); Total Bilirubin 0.4 mg/dL (0.30-1.20); Total Protein 6.7 g/dL (6.2-8.2); WBC 8.89 X 10*3/uL (4.50-10.00)
== END | disposition home or self-care (01) ==
LOC: LABPAT 15:27
PROVIDERS: ATTEND Orthopaedic Surgery
DX: Z01.812 Encounter for preprocedural laboratory examination (principal)
CPT/HCPCS: 36415; 80053; 81003; 85027; 85610; 85730; 87070

== ENCOUNTER 2021-08-24 11:31 | Day surgery (SDC) | payer MEDICARE, BC ==
[2021-08-19 12:10] VITALS: BMI 31.8
[~2021-08-24 11:31] MED LIST changes: +ACETAMINOPHEN TAB 500 MG TAB PO PRN; +GABAPENTIN 300 MG CAP PO PRN; +HYDROmorphone 0.5 MG/0.5 ML SYRINGE IVP PRN; -LACTATED RINGERS 1,000 ML IV SCH; +LIDOCAINE 1% (10MG/ML) FOR IV START INTRADERMA PRN; +MELOXICAM 7.5 MG TAB PO PRN; +ONDANSETRON 4 MG/2 ML VIAL IVP ONE; -SODIUM CHLORIDE 0.9% 1,000 ML IV SCH; +TRANEXAMIC ACID 1,000 MG in SODIUM CHLORIDE 0.9% 100 ML IVPB PRN; +TRANEXAMIC ACID IN NACL,ISO-OS 100 ML IV PRN; -ceFAZolin 1,000 MG in SODIUM CHLORIDE 0.9% IRRIGATIO 250 ML IRRIGATION ONE
[2021-08-24 12:22] LABS: Glucose,Whole Blood 256 mg/dL (75-99)
[2021-08-24] MEDS: LACTATED RINGERS 1,000 ML IV SCH ×2 (12:24→19:12)
[2021-08-24] MEDS ORDERED: MIDAZOLAM 2 MG/2 ML VIAL IV ONE (12:50)
[2021-08-24] MEDS ORDERED: fentaNYL (PF) 50 MCG/ML 2 ML AMP IV ONE (12:50)
[2021-08-24] MEDS ORDERED: INSULIN ASPART (NovoLOG) 100 UNIT/ML VIAL SQ ONE ×2 (13:19→16:49)
[2021-08-24] MEDS ORDERED: ONDANSETRON 4 MG/2 ML VIAL IVP PRN (13:58)
[2021-08-24] MEDS ORDERED: bisacodyL 10 MG SUPP RECTAL PRN (13:58)
[2021-08-24] MEDS ORDERED: ACETAMINOPHEN TAB 325 MG TAB PO PRN (13:58)
[2021-08-24] MEDS ORDERED: NALOXONE 0.4 MG/ML 1 ML VIAL IV PRN (13:58)
[2021-08-24] MEDS ORDERED: MAGNESIUM HYDROXIDE 2,400 MG/10 ML CUP PO PRN (13:58)
[2021-08-24] MEDS ORDERED: traMADol 50 MG TAB PO PRN (13:58)
[2021-08-24] MEDS ORDERED: TEMAZEPAM 15 MG CAP PO PRN (13:58)
[2021-08-24] MEDS ORDERED: NA PHOS,M-B/NA PHOS,DI-BA 133 ML ENEMA RECTAL PRN (13:58)
[2021-08-24] MEDS ORDERED: diazePAM 5 MG TAB PO PRN (13:58)
[2021-08-24] MEDS ORDERED: HYDROmorphone 0.5 MG/0.5 ML SYRINGE IVP PRN ×3 (13:58)
[2021-08-24] MEDS ORDERED: HYDROcodone/APAP 5-325MG 1 EACH TAB PO PRN (13:58)
[2021-08-24] MEDS ORDERED: PHENYLEPHRINE-0.9% NACL SYG 1,000 MCG/10 ML SYRINGE ONE (14:19)
[2021-08-24] MEDS ORDERED: SODIUM CHLORIDE 0.9% (PF) 10 ML VIAL ONE (14:19)
[2021-08-24] MEDS ORDERED: TRANEXAMIC ACID IN NACL,ISO-OS 1,000 MG/100 ML BAG ONE (14:19)
[2021-08-24] MEDS ORDERED: MIDAZOLAM 2 MG/2 ML VIAL ONE (14:19)
[2021-08-24] MEDS ORDERED: ROPIVACAINE 5 MG/ML 30 ML VIAL ONE (14:19)
[2021-08-24] MEDS ORDERED: ceFAZolin 1,000 MG in SODIUM CHLORIDE 0.9% 1,000 ML IRRIGATION ONE (14:24)
--- NOTE | 2021-08-24 14:24 | P.ANPRN ---
Procedure Note - Anesthesia - Nerve Block Performed Right Adductor Canal Infusion Time Out Performed: Yes (1249) Date of Procedure: 08/24/21 Procedure Start Time: 12:50 Procedure Stop Time: 12:57 Location of Patient: PreOp Indication: Acute Post-Operative Pain, Requested by Surgeon Specifically requested for management of pain by DrRonnell: Lalo Beaulieu Sedation Type: Sedate with meaningful contact maintained Preparation: Sterile Prep, Sterile Dressing Position: Supine Catheter Depth at Skin (cm): 7 Catheter: Indwelling Needle Types: Pajunk Needle Gauge: 18 Ultrasound used to visualize needle placement: Yes Ultrasound used to observe medication spread: Yes Injectate: 0.5% Ropivacaine (see comment for volume) (15cc + 5cc nacl) Blood Aspirated: No Pain Paresthesia on Injection Noted: No Resistance on Injection: Normal Image Stored and Saved: Yes Events: Uneventful and Well Tolerated
--- NOTE | 2021-08-24 14:25 | P.ANPRN ---
Procedure Note - Anesthesia - Nerve Block Performed Right iPack Single Time Out Performed: Yes ([id number]) Date of Procedure: 08/24/21 Procedure Start Time: 12:58 Procedure Stop Time: 13:02 Location of Patient: PreOp Indication: Acute Post-Operative Pain, Requested by Surgeon Specifically requested for management of pain by DrRonnell: Lalo Beaulieu Sedation Type: Sedate with meaningful contact maintained Preparation: Sterile Prep Position: Supine Catheter: None Needle Types: Pajunk Needle Gauge: 21 Ultrasound used to visualize needle placement: Yes Ultrasound used to observe medication spread: Yes Injectate: 0.5% Ropivacaine (see comment for volume) (15cc + nacl 5cc) Blood Aspirated: No Pain Paresthesia on Injection Noted: No Resistance on Injection: Normal Image Stored and Saved: Yes Events: Uneventful and Well Tolerated
--- NOTE | 2021-08-24 15:51 | P.OP ---
Date of Procedure: 08/24/21 Preoperative Diagnosis: Severe severe osteoarthritis right knee Postoperative Diagnosis: Severe osteoarthritis right knee Procedure(s) Performed: Right total knee arthroplasty Implants: [employer]hew Journey II CR Oxinium bi-cruciate stabilized femoral component size 8, right [employer] Journey nonporous tibial baseplate size 6, right [employer] Journey II, constrained articular insert, size 9 mm, Size 5-6, right [employer] Journey Charla II resurfacing patellar component, oval, 35 mm All components were cemented using Palacos R bone cement x 2 The articulation is Oxinium on polyethylene Anesthesia: spinal Surgeon: Lalo Beaulieu Director Of Field Coordination #1: Daron Alvarez Estimated Blood Loss (ml): 30 Pathology: other (Bone and cartilage) Condition: stable Disposition: PACU Indications for Procedure: After failure of conservative treatment we discussed the surgical and nonsurgical treatment options at length. Patient wishes to proceed with a total knee arthroplasty. Complications specific to this procedure were discussed at length, including but not limited to infection, bleeding, stiffness, and nerve injury. Covid-19 was also discussed at length with the patient, and they are aware of the current policies and procedures. The patient was given the option of delaying surgery, but they elect to proceed knowing these risks. Patient is aware of all these complications and informed consent was obtained Operative Findings: The operative findings are consistent with severe osteoarthritis the right knee Description of Procedure: Patient was seen in the preoperative area and the consent was reviewed and the operative site was marked with a skin marker. The patient verified the procedure and the operative site. An adductor canal pain catheter and an iPACK block was placed by anesthesia in the preoperative area. The patient was then brought to the operating room and given preoperative antibiotics intravenously. A gram of transexamic acid was given intravenously. A spinal anesthetic was administered by the anesthesia department. A tourniquet was placed on the upper thigh and the lower extremity was prepped with chlorhexidine and draped in usual sterile fashion. A universal timeout was then performed which confirmed the patient's name, surgical site, ALLERGIES, and consent. The lower extremity was then exsanguinated and tourniquet was inflated to 250 mmHg. A standard anterior midline approach to the knee was performed. The skin and subcutaneous tissue were sharply dissected down to the patellar tendon. A medial parapatellar arthrotomy was then performed. The knee was then extended, the patellar was everted, and the knee was again flexed. The infra-patellar fat pad was removed in order to enhance exposure. The anterior horns of both menisci were excised, and a release was performed to the posterior medial aspect of the knee. On gross visual inspection, there was complete loss of articular cartilage in the medial and patellofemoral joint spaces. There was also significant cartilage damage in the lateral compartment. There were multiple periarticular osteophytes globally about the knee which were then removed with a Ronguer. The femoral canal was then opened with the 9.5 mm intramedullary drill. The 8 mm intramedullary jesenia was then inserted into the femoral canal with the distal femoral cutting guide set for 5 of valgus. The distal femoral cutting block was then pinned in place. The intramedullary jesenia was then removed, and the distal femur was then cut. The cutting block was then removed and the cut was checked for symmetry. The resected bone was then measured to confirm the appropriate distal femoral resection. Next, the sizing guide was then placed and set for 3 external rotation based off of the epicondylar axis and Whitesides line. Pins were then placed and the drill holes, and the femur was sized with the sizing stylus. The pins were then removed, and the sizing guide was then removed. The spikes of the femoral block was then placed into the predrilled holes, and malleted into place. Two 45 mm pins were then placed into the fixation holes on the cutting block. An theresa wing was then used to ensure there would be no notching with the anterior cut. The anterior condyles were cut without notching. The anterior chord cut was then performed, followed by the posterior cut, posterior chamfer cut, and the anterior chamfer cut. The collateral ligaments were protected during the entire process. The cutting block was then removed. Any remaining bone and osteophytes were removed from the femur with a Ronguer. The femoral canal was plugged with autologous bone. Attention was then directed to the tibia. The remaining ACL was removed with a Ronguer, and the tibia was then gently subluxed forward with a large bent knee retractor. Any remaining menisci were excised. The posterior lateral corner was cauterized in order to coagulate the lateral geniculate artery. The extra medullary tibial cutting guide was then placed, set for the appropriate rotation, slope, and depth of resection. The proximal tibia cutting guide was then pinned in place. Proximal tibia was then cut and sized. The femoral trial was placed. A narrow saw blade was then used to remove the anterior intracondylar femoral bone. The CR notch trial was then placed. The tibial trial was placed with the appropriate-sized insert. The knee was able to fully extend and flex to 130 and was stable throughout all range of motion. The knee was then extended and the patella was everted. Patella was then measured, and then using an osteotomy guide, the patella was cut at the appropriate level. The patella was then measured and drilled and the patella trial was then placed. The knee was then taken through range of motion with the patella trial and the patella tracked normally using the no thumbs technique. The knee was then extended patella trial was then removed and the patella was everted. Knee was then flexed and lug holes were drilled through the femoral trial and the femoral trial was then removed. The tibial was then re-exposed, and the tibial broach g uide was then pinned in place after it was set for the appropriate rotation to allow for the most coverage without overhang. The tibia was then reamed and broached. The cut surfaces of bone were then irrigated with pulsatile lavage. The knee was also irrigated with Irrisept solution. The components were then opened, the cement was mixed, and the components were then cemented in place. The cement was allowed to harden with the knee in full extension. After the cemented hardened, the tourniquet was released and hemostasis was obtained. A second gram of transexamic acid was given intravenously. The knee was again irrigated. The knee was again taken through range of motion and found to be stable throughout all range of motion of 0-130, and the patella tracked normally. The fascia was then closed with 0 Vicryl followed by #2 strata fix suture. The subcutaneous tissue was closed with 3-0 Vicryl and 3-0 strata fix. Exofin glue was used for the skin and placed with the knee in flexion. After the glue had dried, and Optafoam silver impregnated dressing was applied. The patient was then transferred to recovery room in stable condition. The case assistant LUCRECIA Anderson was required due the complexity surgery and the need for a skilled surgical instrument mechanic. She assisted in positioning, draping, retraction, and closure of the wound.
[2021-08-24] MEDS ORDERED: LACTATED RINGERS 1,000 ML IV ONE (16:04)
[2021-08-24] MEDS ORDERED: ROPIVACAINE 0.2%-NS ON-Q PUMP 1,090 MG, EMPTY PAIN BALL 1 EACH MISCELLANE PRN (16:34)
[2021-08-24 16:45] LABS: Glucose,Whole Blood 241 mg/dL (75-99)
--- NOTE | 2021-08-24 16:58 | XR ---
EXAMINATION TYPE: XR knee limited RT DATE OF EXAM: 08/24/2021 CLINICAL HISTORY: Postoperative knee TECHNIQUE: 2 views of the right knee are obtained. COMPARISON: None. FINDINGS: There is demonstration of right total knee arthroplasty without evidence of hardware compli cation. There are postsurgical changes about the knee soft tissues. Alignment is anatomic. No acute f racture or dislocation. IMPRESSION: Status post right knee arthroplasty.
[2021-08-24 20:37] LABS: Glucose,Whole Blood 210 mg/dL (75-99)
[2021-08-24] MEDS ORDERED: SENNOSIDES-DOCUSATE SODIUM 1 EACH TAB PO SCH (21:00)
[2021-08-24] MEDS ORDERED: ASPIRIN 81 MG PO SCH (21:00)
--- NOTE | 2021-08-24 23:25 | P.CONS ---
History of Present Illness - Reason for Consult Consult date: 08/24/21 Medical management Requesting physician: Lalo Beaulieu - Chief Complaint Scheduled for right total knee arthroplasty - History of Present Illness 85-year-old male with diabetes mellitus, hypertension hyperlipidemia Patient comes in for scheduled right total knee arthroplasty tolerated procedure well no observed immediate postoperative complications patient tolerated by mouth intake he denies any nausea vomiting abdominal pain denies any chest pain or trouble breathing. Review of Systems Pertinent positives as noted in HPI. All other systems were reviewed and are negative Past Medical History Past Medical History: Atrial Fibrillation, Coronary Artery Disease (CAD), Cancer, Diabetes Mellitus, Eye Disorder, Hyperlipidemia, Hypertension, Osteoarthritis (OA), Sleep Apnea/CPAP/BIPAP Additional Past Medical History / Comment(s): neuropathy bilateral feet- difficulty with walking, bilateral glaucoma, no CPAP, hx skin cancer History of Any Multi-Drug Resistant Organisms: None Reported Past Surgical History: AICD, Appendectomy, Heart Catheterization With Stent, Pacemaker, Tonsillectomy Additional Past Surgical History / Comment(s): 02/17/20 AICD, UVPPP, skin cancer removed from L ear with skin graft, colonoscopy, R eye retinal re-attachment, bilateral cataract removals. one cardiac stent Past Anesthesia/Blood Transfusion Reactions: No Reported Reaction Additional Past Anesthesia/Blood Transfusion Reaction / Comm: PT ADOPTED. Date of Last Stent Placement:: 2018 Type of Cardiac Device: Permanent Pacemaker, AICD Device Placement Date:: 02/17/20 Past Psychological History: Depression Additional Psychological History / Comment(s): . Smoking Status: Never smoker Past Alcohol Use History: Rare Past Drug Use History: None Reported - Past Family History Family History Unknown: Yes Family Medical History: No Reported History Additional Family Medical History / Comment(s): PT ADOPTED. Medications and Allergies Home Medications Medication Instructions Recorded Confirmed Type metFORMIN HCL [Glucophage] 1,000 mg PO BID 03/21/19 08/19/21 History Latanoprost Ophth [Xalatan 0.005%] 1 drop BOTH EYES HS 04/18/19 08/19/21 History Atorvastatin [Lipitor] 80 mg PO HS #90 tab 05/24/19 08/19/21 Rx Aspirin EC [Ecotrin Low Dose] 81 mg PO DAILY 10/12/20 08/19/21 History Potassium Chloride ER [K-Dur 10] 10 meq PO DAILY 10/12/20 08/19/21 History Apixaban [Eliquis] 5 mg PO BID 08/19/21 08/19/21 History Brimonidine Tartrate [Alphagan P 1 drops RIGHT EYE HS 08/19/21 08/19/21 History 0.2% Ophth Soln] Empagliflozin [Jardiance] 10 mg PO QAM 08/19/21 08/19/21 History Losartan [Cozaar] 50 mg PO DAILY 08/19/21 08/24/21 History Propranolol HCl 80 mg PO QAM 08/19/21 08/19/21 History Sertraline [Zoloft] 25 mg PO HS 08/19/21 08/19/21 History Spironolactone [Aldactone] 25 mg PO DAILY 08/19/21 08/19/21 History glipiZIDE [Glucotrol] 5 mg PO BID 08/19/21 08/19/21 History sitaGLIPtin [Januvia] 50 mg PO HS 08/19/21 08/19/21 History Allergies Allergy/AdvReac Type Severity Reaction Status Date / Time lisinopril [From Zestril] AdvReac Unknown Cough Verified 08/24/21 12:03 Physical Exam Vitals: Vital Signs Temp Pulse Pulse Resp BP Pulse Ox 08/24/21 20:00 97.6 F 58 L 131/65 98 08/24/21 17:30 67 66 H 123/59 94 L 08/24/21 17:02 49 L 18 112/53 100 08/24/21 16:47 57 L 18 123/62 100 08/24/21 16:32 60 18 132/59 100 08/24/21 16:20 96.8 F L 69 16 122/67 99 08/24/21 13:05 60 16 113/59 95 08/24/21 12:50 66 16 134/71 95 08/24/21 12:14 96.9 F L 81 16 127/75 99 Intake and Output 08/24/21 08/24/21 08/25/21 14:59 22:59 06:59 Intake Total 1051 100 Output Total 30 Balance 1051 70 Intake: IV 1051 100 Output: Estimated Blood Loss 30 Other: Voiding Method Toilet Urinal Weight 103.6 kg 103.6 kg Constitutional: No acute distress, conversant, pleasant Eyes: Anicteric sclerae, moist conjunctiva, Pupils equal round reactive to light ENMT: NC/AT Oropharynx clear, no erythema, or exudates Neck: Supple, FROM, no masses, or JVD No carotid bruits No thyromegaly Lungs: Clear to auscultation Clear to percussion Normal respiratory effort, no accessory muscle use Cardiovascular: Heart regular in rate and rhythm, No murmurs, gallops, or rubs No peripheral edema Abdominal: Soft Nontender, no guarding, rebound or rigidity Abdomen moving with respiration Normoactive bowel sounds No hepatomegaly, No splenomegaly No palpable mass No abdominal wall hernia noted Skin: Normal temperature, tone, texture, turgor No induration No subcutaneous nodules No rash, lesions No ulcers Extremities: Right lower extremity wrapped surgical dressing., Looks dry clean and intact No digital cyanosis No clubbing Pedal pulses intact and symmetrical Radial pulses intact and symmetrical No calf tenderness Psychiatric: Alert and oriented to person, place and time Appropriate affect fair judgement Neuro Muscles Strength 5/5 in bilateral upper extremities and left lower extremity. Right lower extremity limited to surgery Sensation to light touch grossly present throughout Cranial nerves II-XII grossly intact Lymphatics: no palpable cervical or supraclavicular , or inguinal lymph nodes Results Labs: Abnormal Lab Results - Last 24 Hours (Table) 08/24/21 08/24/21 08/24/21 Range/Units 12:20 16:44 20:36 POC Glucose (mg/dL) 256 H 241 H 210 H (75-99) mg/dL Assessment and Plan Assessment: Medical management postoperatively Status post right total knee arthroplasty postoperative day 0 DVT prophylaxis and pain management per orthopedics Chronic conditions Diabetes mellitus continue with insulin sliding scale hold oral hypoglycemic agents Hyperlipidemia continue statin Depression continue with Zoloft Hypertension continue with spironolactone and ANTHONY inhibitor Follow-up morning labs CBC and BMP Patient seems medically stable at this point Thank you for allowing us to participate in the care of this patient. Do not hesitate to contact us with questions. Someone can be reached from the [facility] hospitalist group at all hours of the day at [phone].
[2021-08-24] MEDS ORDERED: SERTRALINE 25 MG TAB PO SCH (23:30)
[2021-08-25] MEDS: HYDROcodone/APAP 10-325MG 1 EACH TAB PO PRN ×2 (00:06→05:28)
[2021-08-25] MEDS: INSULIN ASPART (NovoLOG) 100 UNIT/ML VIAL SQ SCH ×2 (00:11→07:51)
[2021-08-25] MEDS: LACTATED RINGERS 1,000 ML IV SCH ×3 (00:11→07:38)
[2021-08-25 07:16] LABS: Glucose,Whole Blood 227 mg/dL (75-99)
--- NOTE | 2021-08-25 07:30 | P.PN ---
Progress Note - Text Progress Note Date: 08/25/21 (647) Anesthesiology Postop day 1 status post total knee arthroplasty with adductor canal catheter. Patient doing well. VAS 6-7 out of 10. Gross strength intact in lower extremity. Afebrile. Denies alterations in sensorium. Catheter site intact. Heart regular rate Lungs nonlabored Abdomen nondistended Assessment: Postop day 1 status post total knee arthroplasty with adductor canal catheter Plan: All questions answered. Maintain catheter 2 more days with patient removal at home. Instructions were given at discharge.
--- NOTE | 2021-08-25 08:42 | P.DS ---
Providers Expected date of discharge: 08/25/21 Attending physician: Lalo Beaulieu Consults: 08/24/21 13:58 Consult Physician Routine Consulting Provider: Vanessa Art Consult Reason/Comments: post op medical management Do you want consulting provider notified?: Yes Primary care physician: Gena Cotton MD - Discharge Diagnosis(es) (1) Primary localized osteoarthritis of right knee Current Visit: Yes Status: Acute (2) Status post total right knee replacement Current Visit: Yes Status: Acute Hospital Course: This is an 85-year-old female who was last seen with complaint of continued right knee pain. The patient has a known history of degenerative arthritis of the right knee and presents to discuss surgical options. After discussion and consideration the patient elects to proceed with total right knee arthroplasty. The patient is seen preoperatively by his primary care physician and cleared for surgery. The patient is admitted to [facility] for total right knee arthroplasty. The procedures performed without complication or sequelae. Patient is doing well postoperatively. Vital signs are stable at discharge. Labs are stable at discharge. the patient is ambulating well with walker with minimal assistance. The patient is discharged to home on postop day #1 pending medical clearance. Please see orders and refer to the med rec for accurate list of medications. Patient Condition at Discharge: Good Plan - Discharge Summary Discharge Rx Participant: Yes New Discharge Prescriptions: New Gabapentin [Neurontin] 300 mg PO BID 5 Days #10 cap HYDROcodone/APAP 7.5-325MG [[place] 7.5-325] 1 - 2 tab PO Q6HR PRN #32 tab PRN Reason: Pain Sennosides-Docusate Sodium [Senokot-S] 1 tab PO BID #60 tablet No Action metFORMIN HCL [Glucophage] 1,000 mg PO BID Latanoprost Ophth [Xalatan 0.005%] 1 drop BOTH EYES HS Atorvastatin [Lipitor] 80 mg PO HS #90 tab Aspirin EC [Ecotrin Low Dose] 81 mg PO DAILY Apixaban [Eliquis] 5 mg PO BID Brimonidine Tartrate [Alphagan P 0.2% Ophth Soln] 1 drops RIGHT EYE HS Empagliflozin [Jardiance] 10 mg PO QAM glipiZIDE [Glucotrol] 5 mg PO BID Propranolol HCl 80 mg PO QAM Sertraline [Zoloft] 25 mg PO HS Spironolactone [Aldactone] 25 mg PO DAILY Potassium Chloride ER [K-Dur 10] 10 meq PO DAILY Losartan [Cozaar] 50 mg PO DAILY sitaGLIPtin [Januvia] 50 mg PO HS Discharge Medication List metFORMIN HCL [Glucophage] 1,000 mg PO BID 03/21/19 [History] Latanoprost Ophth [Xalatan 0.005%] 1 drop BOTH EYES HS 04/18/19 [History] Atorvastatin [Lipitor] 80 mg PO HS #90 tab 05/24/19 [Rx] Aspirin EC [Ecotrin Low Dose] 81 mg PO DAILY 10/12/20 [History] Potassium Chloride ER [K-Dur 10] 10 meq PO DAILY 10/12/20 [History] Apixaban [Eliquis] 5 mg PO BID 08/19/21 [History] Brimonidine Tartrate [Alphagan P 0.2% Ophth Soln] 1 drops RIGHT EYE HS 08/19/21 [History] Empagliflozin [Jardiance] 10 mg PO QAM 08/19/21 [History] Losartan [Cozaar] 50 mg PO DAILY 08/19/21 [History] Propranolol HCl 80 mg PO QAM 08/19/21 [History] Sertraline [Zoloft] 25 mg PO HS 08/19/21 [History] Spironolactone [Aldactone] 25 mg PO DAILY 08/19/21 [History] glipiZIDE [Glucotrol] 5 mg PO BID 08/19/21 [History] sitaGLIPtin [Januvia] 50 mg PO HS 08/19/21 [History] Gabapentin [Neurontin] 300 mg PO BID 5 Days #10 cap 08/25/21 [Rx] HYDROcodone/APAP 7.5-325MG [[place] 7.5-325] 1 - 2 tab PO Q6HR PRN #32 tab 08/25/21 [Rx] Sennosides-Docusate Sodium [Senokot-S] 1 tab PO BID #60 tablet 08/25/21 [Rx] Follow up Appointment(s)/Referral(s): Lalo Beaulieu DO [Doctor of Osteopathic Medicine] - 10 Days Activity/Diet/Wound Care/Special Instructions: Weight bear as tolerated May shower after 3 days if no bleeding Keep wound clean and dry Take meds as directed F/U with Dr. Beaulieu in office Resume Monika. Discharge Disposition: HOME WITH HOME HEALTH SERVICES
[2021-08-25 08:48] LABS: Basophils # (A) 0.06 X 10*3/uL (0.00-0.10); Basophils % (A) 0.5 %; Eosinophils # (A) 0.17 X 10*3/uL (0.04-0.35); Eosinophils % (A) 1.4 %; HCT 40.6 % (39.6-50.0); HGB 12.8 g/dL (13.0-17.0); Immature Grans, Automated 0.5 %; Lymphocytes # (A) 0.86 X 10*3/uL (0.90-5.00); MCH 28.3 pg (27.0-32.0); MCHC 31.5 g/dL (32.0-37.0); MCV 89.8 fL (80.0-97.0); Monocytes # (A) 1.24 X 10*3/uL (0.20-1.00); NRBC Per 100 WBC 0 /100 WBCS (0.0-0.0); Neutrophils # (A) 9.95 X 10*3/uL (1.80-7.70); Neutrophils % (A) 80.6 %; Platelet Count 214 X 10*3/uL (140-440); RBC 4.52 X 10*6/uL (4.40-5.60); RDW 14.5 % (11.5-14.5); WBC 12.34 X 10*3/uL (4.50-10.00)
[2021-08-25] MEDS ORDERED: ASPIRIN 81 MG PO SCH (09:00)
[2021-08-25] MEDS ORDERED: LOSARTAN 50 MG TAB PO SCH (09:00)
[2021-08-25] MEDS ORDERED: SPIRONOLACTONE 25 MG TAB PO SCH (09:00)
[2021-08-25 09:03] LABS: African American GFR (CKD) 78.4 (60.0-200.0); Anion Gap 10.2 mmol/L (10.00-18.00); BUN/Creat Ratio 23.73 Ratio (12.00-20.00); Blood Urea Nitrogen 24.2 mg/dL (9.0-27.0); Calcium 9.1 mg/dL (8.7-10.3); Carbon Dioxide 23.9 mmol/L (20.0-27.5); Non-African American GFR(CKD) 67.7 (60.0-200.0)
[2021-08-25 09:28] VITALS: BP 114/68; PULSE 93; RESP 16; TEMP 97.5
[2021-08-25] MEDS ORDERED: MULTIVITAMINS, THERA 1 EACH TAB PO SCH (12:00)
[2021-08-25] MEDS ORDERED: ATORVASTATIN 80 MG TAB PO SCH (21:00)
[2021-08-25] MEDS ORDERED: INSULIN ASPART (NovoLOG) 100 UNIT/ML VIAL SQ SCH (23:18)
== END 2021-08-25 11:29 | disposition home health service (06) ==
LOC: OR 11:31 → 4SSUR 16:20 → OR 08-25 11:29
PROVIDERS: ATTEND Orthopaedic Surgery
DX: M17.11 Unilateral primary osteoarthritis, right knee (principal); I10 Essential (primary) hypertension; H91.90 Unspecified hearing loss, unspecified ear; E11.40 Type 2 diabetes mellitus with diabetic neuropathy, unspecified; R26.81 Unsteadiness on feet; I25.10 Atherosclerotic heart disease of native coronary artery without angina pectoris; I11.0 Hypertensive heart disease with heart failure; I50.22 Chronic systolic (congestive) heart failure; E78.5 Hyperlipidemia, unspecified; I42.0 Dilated cardiomyopathy; G47.33 Obstructive sleep apnea (adult) (pediatric); Z90.49 Acquired absence of other specified parts of digestive tract; Z98.890 Other specified postprocedural states; I48.0 Paroxysmal atrial fibrillation; Z95.5 Presence of coronary angioplasty implant and graft; Z97.2 Presence of dental prosthetic device (complete) (partial); Z97.3 Presence of spectacles and contact lenses; Z95.0 Presence of cardiac pacemaker; Z79.84 Long term (current) use of oral hypoglycemic drugs; Z79.899 Other long term (current) drug therapy; Z79.01 Long term (current) use of anticoagulants; Z88.8 Allergy status to other drugs, medicaments and biological substances
CPT/HCPCS: 97161; 64999; 64448; 76942; 80048; 85025; 88300; 73560; 27447; C1713; C1776; J2250; J0690 ×3; J2405; J3010; J2795 ×2; J2370; J1170